=== PATIENT | male | born 2000 | race Caucasian/White ===

== ENCOUNTER 2022-05-25 12:35 | Inpatient (IN) ==
[2022-05-25 14:49] LABS: Basophils # (auto) 0.04 K/uL (0-0.2); Basophils % (auto) 0.4 %; Eosinophils # (auto) 0.02 K/uL (0-0.50); Eosinophils % (auto) 0.2 %; Hematocrit (blood only) 42.9 % (40.1-51.0); Hemoglobin 15.2 g/dl (14.0-18.0); Immature Granulocytes # (auto) 0.06 K/uL (0.00-0.02); Immature Granulocytes % (auto) 0.5 %; Lymphocytes # (auto) 1.25 K/uL (1.2-3.4); Lymphocytes % (auto) 11.4 %; Mean Corpuscular Hemoglobin 30.3 pg (25.0-34.0); Mean Corpuscular Hgb Conc 35.4 g/dL (32.0-36.0); Mean Corpuscular Volume 85.5 fL (80.0-100.0); Monocytes % (auto) 9.1 %; Neutrophils # (auto) 8.61 K/uL (1.4-6.5); Neutrophils % (auto) 78.4 %; Platelet Count 298 K/uL (130-400); RDW Coefficient of Variation 12.9 % (11.5-14.5); Red Blood Count 5.02 M/uL (4.63-6.08); White Blood Count 10.98 K/ul (4.8-10.8)
[2022-05-25] MEDS ORDERED: cefTRIAXone SODIUM 2,000 MG/70 ML BAG IV STA (14:55)
--- NOTE | 2022-05-25 15:03 | Emergency Department Note ---
Impression & Plan Cellulitis of left leg, Abscess of left leg ED Provider Note NAME: JEFF ORANTES II AGE: 21 SEX: M : 2000 ARRIVES VIA: Walk-In INFORMANT: Patient, ED PROVIDER(S): Shaji Sparks DO CHIEF COMPLAINT: Leg swelling HPI: The patient is a 21-year-old male who presented to the emergency department for an evaluation of leg swelling. The patient states he started with an infection in his left great toe. He noticed some erythema and swelling around the nail. He he referred to it is an infected ingrown toenail. The patient states that since that time he started noticing swelling and pain in his left calf. It appears to go up to his left knee. He denies having any nausea or vomiting. He denies having any chest pain or difficulty breathing. He was seen at the machine [facility] trimmer's office and then sent to the emergency department for further evaluation. The patient denies having any fever or chills. He denies having any trauma otherwise. ROS: See above HPI for pertinent positives & negatives. A total of 10 systems reviewed and were otherwise negative. PAST MEDICAL HISTORY: See Below PAST SURGICAL HISTORY: See Below FAMILY HISTORY: See Below SOCIAL HISTORY: See Below HOME MEDICATIONS: See Below ALLERGIES: See Below VITALS: See Below PHYSICAL EXAMINATION: GENERAL: Patient is awake alert in no acute distress patient is resting comfortably and showing no signs of anxiety EYES: The conjunctivae are clear. The pupils are round and reactive. EARS, NOSE, MOUTH AND THROAT: The nose is without any evidence of any deformity. Mucous membranes are moist. Tongue is midline. NECK: The neck is nontender and supple. RESPIRATORY: Normal respiratory effort is noted there is no evidence of wheezing rhonchi or rales CARDIOVASCULAR: Regular rate and rhythm noted there no murmurs rubs or gallops normal S1 normal S2. GASTROINTESTINAL: The abdomen is soft. Abdomen is nontender. MUSCULOSKELETAL/EXTREMITIES: There is no evidence of gross deformity full range of motion is noted in the hips and shoulders. SKIN: There is erythema and swelling in the left leg. It extends to the left calf. Pulses are symmetric in both feet. Skin is warm and dry. The left great toe does show some hypertrophy of the skin at the nail fold. There is no signs of paronychia or drainage. NEUROLOGIC: Patient is awake alert and oriented x3. MEDICAL DECISION MAKING: The patient is a 21-year-old male who does not have any past medical history who presented to the emergency department for an evaluation of left leg swelling. Patient started with an ingrown toenail on the left foot. He started noticing swelling and pain. He was seen by the machine ii trimmer but then sent to the emergency department for further evaluation. He was treated with IV antibiotics in emergency department. He was also treated with IV fluids. I discussed patient's laboratory and radiographic studies with him. [facility] prefer that I discussed the case with the supervisory it specialist given the findings. Triage Nursing notes reviewed. Prior medical records reviewed Vital Signs: reviewed and remarkable for elevated blood pressure. Differential diagnosis: Cellulitis, abscess, MRSA infection, DVT, necrotizing fasciitis, dermatitis, drug eruption, allergic reaction, as well as other pathologies. ER treatment provided: See below Diagnostics interpreted by me: ECG: none Cardiac Monitoring: An order was placed for continuous cardiac monitoring. The monitor shows a rate of 103 bpm with sinus tachycardia. Laboratory studies: As stated above and show below. Imaging studies: See below. Radiographic imaging was reviewed by myself Consultation(s): I discussed this case with Dr. Mary who [facility] I discussed this case with Dr. Stearns who is on-call for orthopedics unassigned. Past Med/Surg History Medical History Abnormal thyroid function test Acute pharyngitis, unspecified Attention deficit disorder without hyperactivity [id number] spots Family History Mother No problems noted. Father No problems noted. Social History Feels Safe at Home: Yes Allergies Allergies Allergy/AdvReac Type Severity Reaction Status Date / Time No Known Drug Allergies Allergy Verified 05/25/22 17:10 Home Meds Home Medications Medication Instructions Recorded Confirmed No Known Home Medications 05/25/22 05/25/22 Results & Data (ED) Vital Signs Vital Signs - 24 hr 05/25/22 12:45 05/25/22 17:14 Temperature 37.1 C Temperature Source Temporal Artery Scan Pulse Rate 98 H Pulse Rate [Finger] 103 H Pulse Rhythm [Finger] Regular Pulse Strength [Finger] Normal Respiratory Rate 16 20 Respiratory Effort / Characteristics Non-Labored Non-Labored Spontaneous Respiratory Depth Normal Normal Respiratory Pattern Regular Blood Pressure 139/93 Blood Pressure [Right Arm] 147/77 H Blood Pressure Mean 108 Blood Pressure Mean [Right Arm] 100 Blood Pressure Position Sitting Blood Pressure Position [Right Arm] Lying Pulse Oximetry 96 97 Oxygen Delivery Method Room Air Room Air Sepsis Recent Fever Within 48 Hours No Sepsis New/Unexplained Change in Mental Status No Sepsis Action Taken by Nursing No Action Required Home Medications Current Medication List: was personally reviewed by me Laboratory Data Attestation: I reviewed the patient's lab results. 05/25/22 14:40 05/25/22 14:40 Lab Results 05/25/22 05/25/22 05/25/22 Range/Units 14:40 14:40 14:40 WBC 10.98 H (4.8-10.8) K/ul RBC 5.02 (4.63-6.08) M/uL Hgb 15.2 (14.0-18.0) g/dl Hct 42.9 (40.1-51.0) % MCV 85.5 (80.0-100.0) fL MCH 30.3 (25.0-34.0) pg MCHC 35.4 (32.0-36.0) g/dL RDW Std Deviation 40.0 (36.4-46.3) fL RDW Coeff of Luz 12.9 (11.5-14.5) % Plt Count 298 (130-400) K/uL MPV 11.0 (9.4-12.4) fL Immature Gran % (Auto) 0.5 % Neut % (Auto) 78.4 % Lymph % (Auto) 11.4 % [place] % (Auto) 9.1 % Eos % (Auto) 0.2 % Baso % (Auto) 0.4 % Neut # (Auto) 8.61 H (1.4-6.5) K/uL Lymph # (Auto) 1.25 (1.2-3.4) K/uL [place] # (Auto) 1.00 H (0.24-0.82) K/uL Eos # (Auto) 0.02 (0-0.50) K/uL Baso # (Auto) 0.04 (0-0.2) K/uL Immature Gran # (Auto) 0.06 H (0.00-0.02) K/uL Sodium 135 L (136-145) mmol/L Potassium 3.6 (3.5-5.1) mmol/L Chloride 100 (98-107) mmol/L Carbon Dioxide 25 (21-32) mmol/L Anion Gap 10 (3-11) BUN 12 (6-23) mg/dl Creatinine 0.90 (0.6-1.4) mg/dl Est Cr Clr Drug Dosing Not Reportable Est GFR ( Amer) 141.0 ml/min Est GFR (Non-Af Amer) 121.7 ml/min BUN/Creatinine Ratio 13.3 (10-20) Glucose 93 (70-99(Fasting)) mg/dl Calcium 9.7 (8.5-10.1) mg/dl Total Bilirubin 0.9 (0.2-1.0) mg/dl AST 41 H (13-39) U/L ALT 53 H (7-52) U/L Alkaline Phosphatase 59 (34-104) U/L C-Reactive Protein 11.77 H (0-0.5) mg/dl Total Protein 8.5 H (6.0-8.3) gm/dl Albumin 4.1 (3.4-5.0) gm/dl Globulin 4.4 H (2.5-4.0) gm/dl Albumin/Globulin Ratio 0.9 (0.9-2) Procalcitonin (0-0.5) ng/ml SARS-CoV-2, RNA, NAAT (NEGATIVE) 05/25/22 05/25/22 Range/Units 14:40 17:08 WBC (4.8-10.8) K/ul RBC (4.63-6.08) M/uL Hgb (14.0-18.0) g/dl Hct (40.1-51.0) % MCV (80.0-100.0) fL MCH (25.0-34.0) pg MCHC (32.0-36.0) g/dL RDW Std Deviation (36.4-46.3) fL RDW Coeff of Luz (11.5-14.5) % Plt Count (130-400) K/uL MPV (9.4-12.4) fL Immature Gran % (Auto) % Neut % (Auto) % Lymph % (Auto) % [place] % (Auto) % Eos % (Auto) % Baso % (Auto) % Neut # (Auto) (1.4-6.5) K/uL Lymph # (Auto) (1.2-3.4) K/uL [place] # (Auto) (0.24-0.82) K/uL Eos # (Auto) (0-0.50) K/uL Baso # (Auto) (0-0.2) K/uL Immature Gran # (Auto) (0.00-0.02) K/uL Sodium (136-145) mmol/L Potassium (3.5-5.1) mmol/L Chloride (98-107) mmol/L Carbon Dioxide (21-32) mmol/L Anion Gap (3-11) BUN (6-23) mg/dl Creatinine (0.6-1.4) mg/dl Est Cr Clr Drug Dosing Est GFR ( Amer) ml/min Est GFR (Non-Af Amer) ml/min BUN/Creatinine Ratio (10-20) Glucose (70-99(Fasting)) mg/dl Calcium (8.5-10.1) mg/dl Total Bilirubin (0.2-1.0) mg/dl AST (13-39) U/L ALT (7-52) U/L Alkaline Phosphatase (34-104) U/L C-Reactive Protein (0-0.5) mg/dl Total Protein (6.0-8.3) gm/dl Albumin (3.4-5.0) gm/dl Globulin (2.5-4.0) gm/dl Albumin/Globulin Ratio (0.9-2) Procalcitonin 2.40 H (0-0.5) ng/ml SARS-CoV-2, RNA, NAAT NEGATIVE (NEGATIVE) Administered Medications Discontinued Medications Ceftriaxone Sodium (Rocephin) 2,000 mg in 70 mls @ 140 mls/hr IV NOW STA Stop: 05/25/22 15:24 Last Admin: 05/25/22 15:59 Dose: 140 mls/hr Documented By: [id number] Sodium Chloride (Nss 1000ml) 1,000 mls @ 999 mls/hr IV .Q1H1M ONE Stop: 05/25/22 17:08 Last Admin: 05/25/22 17:56 Dose: 999 mls/hr Documented By: [id number] Vancomycin HCl 2,500 mg/ (Sodium Chloride) 550 mls @ 200 mls/hr IV NOW ONE Stop: 05/25/22 18:59 Last Admin: 05/25/22 18:32 Dose: Not Given Documented By: [id number] Ioversol (Optiray 320 500ml) 102 ml IV ONCE ONE Stop: 05/25/22 17:39 Last Admin: 05/25/22 17:39 Dose: 102 ml Documented By: [email or web address] Imaging Data Radiologist's Impression: Venous Doppler Study 05/25/22 12:48 LEFT LOWER EXTREMITY VENOUS DOPPLER CLINICAL HISTORY: swelling, redness COMPARISON STUDY: No previous studies for comparison. TECHNIQUE: Sonography of the deep venous system of the left lower extremity was performed. Compression and augmentation were evaluated. FINDINGS: The left common femoral, superficial femoral and popliteal veins were compressible. Augmentation was normal. Flow was shown within the deep calf vessels. A few prominent left inguinal lymph nodes are noted. These are probably reactive. Note is made of a complex elongated fluid collection of the deep soft tissues of the medial left calf measures 5.2 x 1.5 x 3.8 cm. This contains no color flow. IMPRESSION: 1. No evidence of deep venous thrombus within the left lower extremity. 2. Complex elongated fluid collection of the deep soft tissues of the medial left calf that measures 5.2 x 1.5 x 3.8 cm. The sonographic appearance is nonspecific. Differential considerations include a developing abscess or hemat arlene. 3. Prominent left inguinal lymph nodes which are likely benign. ACT 112: Negative or not required by law. Electronically signed by: Martin Zayas M.D. 05/25/2022 4:[address] 05/25/22 16:08 CT OF THE LEFT TIBIA AND FIBULA WITH IV CONTRAST CLINICAL HISTORY: Swelling. Ingrown toenail. COMPARISON STUDY: Left lower extremity venous Doppler ultrasound performed earlier today. TECHNIQUE: Axial images of the left tibia and fibula and lower leg were obtained following intravenous injection of 102 cc of Optiray 320 IV. Sagittal and coronal reconstructions were viewed. Automated exposure control was utilized for the study. A dose lowering technique was utilized adhering to the principles of ALARA. FINDINGS: No fracture within the left tibia or fibula is noted. There is no evidence for acute osteomyelitis. Note is made of extensive stranding of the left lower leg, ankle and visualized portions of the dorsal left foot. The inflammation extends the level of the proximal shaft of the tibia. There is no soft tissue gas. Note is made of a rim-enhancing 4 x 2.6 x 1 cm fluid collection along the anterior medial aspect of the left tibia at the level of the midshaft, overlying the fascia. No additional fluid collections are present. No fascial fluid is identified. No venous thrombus is identified within the left lower leg. No muscular abnormalities present. IMPRESSION: Findings consistent with an ascending infection with cellulitis involving the left foot, ankle and lower leg extending to the level of the proximal shaft of the tibia. Associated small abscess within the deep subcutaneous tissues at the level of the tibial midshaft, measuring 4 x 2.6 x 1 cm. No soft tissue gas. No evidence for acute osteomyelitis. No fascial fluid. ACT 112: Negative or not required by law. Electronically signed by: Martin Zayas M.D. 05/25/2022 5:49 PM Discharge Plan Visit Data Chief Complaint: Swelling/Edema to Extremity Stated Complaint: L LEG INFLAMED, RED, AND PAINFUL ED Provider: Shaji Sparks Discharge Problem: Cellulitis of left leg, Abscess of left leg Patient Disposition: Being Evaluated by Surgeon Forms Stand Alone Forms: My [facility] [employer] Prescriptions Prescriptions: No Action No Known Home Medications Referrals Referrals: Charito Bui MD [Primary Care Provider] -
[2022-05-25 15:13] LABS: Alanine Aminotransferase 53 U/L (7-52); Albumin Globulin Ratio 0.9 (0.9-2); Albumin Level 4.1 gm/dl (3.4-5.0); Alkaline Phosphatase 59 U/L (34-104); Anion Gap 10 (3-11); Aspartate Aminotransferase 41 U/L (13-39); BUN Creatinine Ratio 13.3 (10-20); Bilirubin,Total 0.9 mg/dl (0.2-1.0); Blood Urea Nitrogen 12 mg/dl (6-23); Calcium 9.7 mg/dl (8.5-10.1); Carbon Dioxide 25 mmol/L (21-32); Chloride 100 mmol/L (98-107); Est GFR (Non-African American) 121.7 ml/min; Globulin 4.4 gm/dl (2.5-4.0); Glucose 93 mg/dl (70-99(Fasting)); Potassium 3.6 mmol/L (3.5-5.1); Sodium 135 mmol/L (136-145); Total Protein 8.5 gm/dl (6.0-8.3)
--- NOTE | 2022-05-25 16:07 | Ultrasound Report ---
LEFT LOWER EXTREMITY VENOUS DOPPLER CLINICAL HISTORY: swelling, redness COMPARISON STUDY: No previous studies for comparison. TECHNIQUE: Sonography of the deep venous system of the left lower extremity was performed. Compressi on and augmentation were evaluated. FINDINGS: The left common femoral, superficial femoral and popliteal veins were compressible. Augmen tation was normal. Flow was shown within the deep calf vessels. A few prominent left inguinal lymph n odes are noted. These are probably reactive. Note is made of a complex elongated fluid collection of the deep soft tissues of the medial left calf measures 5.2 x 1.5 x 3.8 cm. This contains no color david w. IMPRESSION: 1. No evidence of deep venous thrombus within the left lower extremity. 2. Complex elongated fluid collection of the deep soft tissues of the medial left calf that measures 5.2 x 1.5 x 3.8 cm. The sonographic appearance is nonspecific. Differential considerations include a developing abscess or hematoma. 3. Prominent left inguinal lymph nodes which are likely benign. ACT 112: Negative or not required by law. Electronically signed by: Martin Zayas M.D. 05/25/2022 4:06 PM
[2022-05-25] MEDS ORDERED: SODIUM CHLORIDE 0.9% 1000ML 1,000 ML IV ONE ×2 (16:08→17:09)
[2022-05-25] MEDS ORDERED: VANCOMYCIN CONSULT ACTIVE PRN (16:15)
[2022-05-25] MEDS ORDERED: VANCOMYCIN HCL 2,500 MG in SODIUM CHLORIDE 0.9% 500 ML IV ONE (16:15)
--- NOTE | 2022-05-25 17:36 | History & Physical Report ---
Date of Service May 25, 2022 Assessment & Plan (1) Cellulitis of left leg: Plan: -Admit to med/surge -Patient is currently afebrile, hemodynamically stable, and stable on RA -Patient noted to have cellulitis of the LLE, imaging today is showing an approximately 4 x 2.6 x 1 cm abscess in the left tibial midshaft -Started on ceftriaxone in the ED and originally ordered Vancomycin -After discussions with the ED will switch patient to Daptomycin due to his BMI -S/P 2L NSS in the ED, patient noted to be tachycardic, will obtain admission ECG now to evaluate -Per ortho, make him NPO at midnight for possible OR tomorrow -Tylenol and morphine for pain -AM CBC and CMP (2) Paronychia due to ingrown nail: Plan: -Likely the source of his infection -Patient may need to be seen by podiatry on discharge (3) Elevated LFTs: Plan: -ATS noted to be 41 today and ALT at 53, likely due to fatty liver disease -Monitor AM CBC and CMP Plan The patient was discussed with Dr. Mary at the time of the admission History of Present Illness Chief Complaint: Left lower extremity swelling Primary Care Provider: Charito Bui MD Edwin is a 21 year old male with a PMH significant for morbid obesity who presented to the [facility] ED on 05/25/22 at the recommendation of his PCP due to concerned for possible cellulitis of the LLE. In the ED the patient was found to be afebrile, hemodynamically stable, and stable on RA, he was noted to be tachycardic in the low 100's. Labs were significant for a WBC of 10.98, absolute neutrophil count of 8.61, stable hgb and platelets, stable cr of 0.9 with stable electrolytes, AST of 41, ALT of 53, CRP of 11, procal of 2.4, US of the LLE was read as "1. No evidence of deep venous thrombus within the left lower extremity. 2. Complex elongated fluid collection of the deep soft tissues of the medial left calf that measures 5.2 x 1.5 x 3.8 cm. The sonographic appearance is nonspecific. Differential considerations include a developing abscess or hematoma. 3. Prominent left inguinal lymph nodes which are likely benign.". The patient was given one dose of ceftriaxone and ordered Vancomycin, he was given 2L NSS bolus prior to admission. The ED staff spoke with orthopedics who recommended medicine admission for initial IV antibiotic therapy, they will follow and determine if he will need to go to the OR. At the time of the exam the patient was resting comfortably in bed in no acute distress with his father sitting bedside. The patient states that he has had an ingrown toenail on the great toe of his LLE for approximately 2 months. He states that he had not yet going to the doctor to have it evaluated due to being in the middle of basketball season. This past weekend the patient states that he noticed redness, swelling and pain staring around his left ankle and moving proximally towards his left knee. He started to experience fever, chills, nausea, and vomiting over the weekend but this has subsided. He has been unable to bear much weight on the LLE since then. He denies taking medications for his pain. Please refer to Dr. Mary's attestation for any changes to the treatment plan Allergies Allergy/AdvReac Type Severity Reaction Status Date / Time No Known Drug Allergies Allergy Verified 05/25/22 17:10 Home Medications Medication Instructions Recorded Confirmed Type No Known Home Medications 05/25/22 05/25/22 History Past Med/Surg History Medical History Abnormal thyroid function test Acute pharyngitis, unspecified Attention deficit disorder without hyperactivity [id number]-pi-[id number] spots Family History Mother No problems noted. Father No problems noted. Social History Smoking Status: Never smoker Second Hand Exposure: No; Do You Dip or Chew Tobacco: No; Hx Alcohol Use: Yes Alcohol type: beer Hx Substance Use: No Preferred Language: Bahamian Communication Ability: Effective Gas Pipe Layer Required: No Beliefs That Will Affect Care: None Current Living Situation: Family Other Information That Helps Us Care for You: No Feels Safe at Home: Yes Safety Concerns: Feels Safe At This Time Assistive Devices: None Review of Systems Review of Systems: Denies current fever, chills, headache, changes in vision, hearing, taste, and smell, chest pain, SOB, cough, abdominal pain, nausea, vomiting, diarrhea, hematemesis, melena, dysuria, hematuria, and recent falls. All systems have been reviewed and are otherwise negative. Physical Exam Physical Exam: Physical Exam: General: In no acute distress, stated age, morbidly obese, non-toxic appeari ng HEENT: Normocephalic, atraumatic, no scleral icterus, pupils around round, symmetrical, and reactive to light, moist mucus membranes, trachea midline, no thyromegaly Chest/Pulm: No respiratory distress, symmetrical chest expansion, clear breath sounds throughout Cardiac: tachycardic rate, regular rhythm, no murmurs noted Abdomen: Negative for ascites and bruising, normoactive bowel sounds, soft, non-tender to palpation throughout Musculoskeletal: Ingrown toenail noted on the left great toe which appears swollen but is not draining, patient noted to have swelling, erythema and tenderness to palpation of the LLE from the proximal ankle to the distal knee Extremities: Radial, dorsalis pedis, and posterior tibial pulses are intact and symmetrical, no edema noted in the BL LE's Skin: erythema, swelling, and tenderness to the LLE Neuro: Alert and oriented to person, place, month, year, and president, no focal defects, CN II-XII tested and intact, finger to nose test negative, no tremors noted Psych: No acute distress, calm and cooperative during the exam Results & Data Results & Data ([facility]) Vital Signs (Past 12 Hours) Vital Signs Temp Pulse Pulse Resp BP BP Pulse Ox 05/25/22 17:14 103 H 20 147/77 H 97 05/25/22 12:45 37.1 C 98 H 16 139/93 96 O2 Del Method 05/25/22 17:14 Room Air 05/25/22 12:45 Room Air Laboratory Results Abnormal lab results 05/25/22 05/25/22 05/25/22 Range/Units 14:40 14:40 14:40 WBC 10.98 H (4.8-10.8) K/ul Neut # (Auto) 8.61 H (1.4-6.5) K/uL [place] # (Auto) 1.00 H (0.24-0.82) K/uL Immature Gran # (Auto) 0.06 H (0.00-0.02) K/uL Sodium 135 L (136-145) mmol/L AST 41 H (13-39) U/L ALT 53 H (7-52) U/L C-Reactive Protein 11.77 H (0-0.5) mg/dl Total Protein 8.5 H (6.0-8.3) gm/dl Globulin 4.4 H (2.5-4.0) gm/dl Procalcitonin (0-0.5) ng/ml 05/25/22 Range/Units 14:40 WBC (4.8-10.8) K/ul Neut # (Auto) (1.4-6.5) K/uL [place] # (Auto) (0.24-0.82) K/uL Immature Gran # (Auto) (0.00-0.02) K/uL Sodium (136-145) mmol/L AST (13-39) U/L ALT (7-52) U/L C-Reactive Protein (0-0.5) mg/dl Total Protein (6.0-8.3) gm/dl Globulin (2.5-4.0) gm/dl Procalcitonin 2.40 H (0-0.5) ng/ml Diagnostic Findings Venous Doppler Study 05/25/22 12:48 LEFT LOWER EXTREMITY VENOUS DOPPLER CLINICAL HISTORY: swelling, redness COMPARISON STUDY: No previous studies for comparison. TECHNIQUE: Sonography of the deep venous system of the left lower extremity was performed. Compression and augmentation were evaluated. FINDINGS: The left common femoral, superficial femoral and popliteal veins were compressible. Augmentation was normal. Flow was shown within the deep calf vessels. A few prominent left inguinal lymph nodes are noted. These are probably reactive. Note is made of a complex elongated fluid collection of the deep soft tissues of the medial left calf measures 5.2 x 1.5 x 3.8 cm. This contains no color flow. IMPRESSION: 1. No evidence of deep venous thrombus within the left lower extremity. 2. Complex elongated fluid collection of the deep soft tissues of the medial left calf that measures 5.2 x 1.5 x 3.8 cm. The sonographic appearance is nonsp ecific. Differential considerations include a developing abscess or hematoma. 3. Prominent left inguinal lymph nodes which are likely benign. ACT 112: Negative or not required by law. Electronically signed by: Martin Zayas M.D. 05/25/2022 4:[address] 05/25/22 16:08 CT OF THE LEFT TIBIA AND FIBULA WITH IV CONTRAST CLINICAL HISTORY: Swelling. Ingrown toenail. COMPARISON STUDY: Left lower extremity venous Doppler ultrasound performed earlier today. TECHNIQUE: Axial images of the left tibia and fibula and lower leg were obtained following intravenous injection of 102 cc of Optiray 320 IV. Sagittal and coronal reconstructions were viewed. Automated exposure control was utilized for the study. A dose lowering technique was utilized adhering to the principles of ALARA. FINDINGS: No fracture within the left tibia or fibula is noted. There is no evidence for acute osteomyelitis. Note is made of extensive stranding of the l eft lower leg, ankle and visualized portions of the dorsal left foot. The inflammation extends the level of the proximal shaft of the tibia. There is no soft tissue gas. Note is made of a rim-enhancing 4 x 2.6 x 1 cm fluid collection along the anterior medial aspect of the left tibia at the level of the midshaft, overlying the fascia. No additional fluid collections are present. No fascial fluid is identified. No venous thrombus is identified within the left lower leg. No muscular abnormalities present. IMPRESSION: Findings consistent with an ascending infection with cellulitis involving the left foot, ankle and lower leg extending to the level of the proximal shaft of the tibia. Associated small abscess within the deep subcutaneous tissues at the level of the tibial midshaft, measuring 4 x 2.6 x 1 cm. No soft tissue gas. No evidence for acute osteomyelitis. No fascial fluid. ACT 112: Negative or not required by law. Electronically signed by: Martin Zayas M.D. 05/25/2022 5:49 PM ECG Additional Comments: No ecg available at the time of the admisssion, will obtain one now Code Status & VTE Plan Code Status Full code VTE Prophylaxis Plan VTE Prophylaxis will be ordered: Yes Supervising Physician Co-Signing Physician Notes I personally saw and examined the patient. I verified all flores points and agree with Dell Doe PA-C with the following exceptions and/or additions: 21-year-old male admission for left leg cellulitis with fluid collection on ultrasound. No fever or chills. O/E HS1+2, Chest CTAB, Abdo SNT, LLE erythema and swelling starting at left lateral ankle to knee, not on dorsal or plantar foot surface A/P LLE cellulitis with abscess - given suspected abscess will cover for MRSA with daptomycin. Blood cultures. Consult orthopedics. Not clearly coming from paronychia however no other open lesions on leg to suggest entry point for infection PG Care Time/CCT Total # of Minutes Spent Total Time Spent with Patient: Total time spent is greater than 50% in coordination of care (as documented) at patient's floor/unit and/or counseling patient: Coding [place] [address] INT INP/OBS CARE 2/55MIN Patient Type Established Medical Decision Making Moderate Complexity Diagnoses Cellulitis of left leg L03.116 Paronychia due to ingrown nail Elevated LFTs R79.89
[2022-05-25] MEDS ORDERED: OPTIRAY 320 500ml IV ONE (17:38)
--- NOTE | 2022-05-25 17:50 | CT Scan Report ---
CT OF THE LEFT TIBIA AND FIBULA WITH IV CONTRAST CLINICAL HISTORY: Swelling. Ingrown toenail. COMPARISON STUDY: Left lower extremity venous Doppler ultrasound performed earlier today. TECHNIQUE: Axial images of the left tibia and fibula and lower leg were obtained following intravenou s injection of 102 cc of Optiray 320 IV. Sagittal and coronal reconstructions were viewed. Automated exposure control was utilized for the study. A dose lowering technique was utilized adhering to the principles of ALARA. FINDINGS: No fracture within the left tibia or fibula is noted. There is no evidence for acute osteom yelitis. Note is made of extensive stranding of the left lower leg, ankle and visualized portions of the dorsal left foot. The inflammation extends the level of the proximal shaft of the tibia. There is no soft tissue gas. Note is made of a rim-enhancing 4 x 2.6 x 1 cm fluid collection along the anteri or medial aspect of the left tibia at the level of the midshaft, overlying the fascia. No additional fluid collections are present. No fascial fluid is identified. No venous thrombus is identified withi n the left lower leg. No muscular abnormalities present. IMPRESSION: Findings consistent with an ascending infection with cellulitis involving the left foot, ankle and lo wer leg extending to the level of the proximal shaft of the tibia. Associated small abscess within th e deep subcutaneous tissues at the level of the tibial midshaft, measuring 4 x 2.6 x 1 cm. No soft ti ssue gas. No evidence for acute osteomyelitis. No fascial fluid. ACT 112: Negative or not required by law. Electronically signed by: Martin Zayas M.D. 05/25/2022 5:49 PM
[2022-05-25] MEDS ORDERED: MoRPHine SULFATE 4 MG/ML 1 ML CARP\\VIAL IV PRN (21:28)
[2022-05-25] MEDS ORDERED: DAPTOmycin 625 MG in SYRINGE 0 ML IV SCH (21:28)
[2022-05-25] MEDS: DAPTOmycin 400 MG in SYRINGE 0 ML IV SCH (22:06)
[2022-05-25] MEDS: ENOXAPARIN INJ 40 MG/0.4 ML SYR SQ SCH (22:06)
[2022-05-25] MEDS: ACETAMINOPHEN 325 MG TAB PO PRN (22:14)
--- NOTE | 2022-05-26 07:29 | Anesthesiology Consultation ---
Date of Service May 26, 2022 Assessment & Plan Chart Review Chart Review: Acceptable Risk for Surgery and Patient NOT seen in Pre Admission Testing History Surgery Operation Date: 05/26/22 12:40 Proposed Procedures p Incision and Drainage Left Leg - Dell Stearns MD Height/Weight Height: 5 ft 9 in Weight: 159.7 kg Allergies Allergy/AdvReac Type Severity Reaction Status Date / Time No Known Drug Allergies Allergy Verified 05/25/22 17:10 Medications Home Medications Medication Instructions Recorded Confirmed Last Taken No Known Home Medications 05/25/22 05/25/22 Unknown Active Medications Generic Name Dose Route Start Last Admin Trade Name Freq PRN Reason Stop Dose Admin Acetaminophen 650 mg 05/25/22 21:28 05/25/22 22:14 Acetaminophen 325 Mg Tab PO 06/24/22 21:27 650 mg Q4H PRN Administration Pain (1,2,3) Or Fever Enoxaparin Sodium 40 mg 05/25/22 21:45 05/25/22 22:06 Enoxaparin Inj 40 Mg/0.4 Ml Syr SQ 06/24/22 21:44 40 mg BID ALEYDA Administration Daptomycin 400 mg/ Syringe 8 mls @ 4 mls/min 05/25/22 21:00 05/25/22 22:06 IV 06/01/22 20:59 4 mls/min Q24H ALEYDA Administration Protocol Past Medical History Medical History Abnormal thyroid function test Acute pharyngitis, unspecified Attention deficit disorder without hyperactivity Nqps-yp-jcho spots Past Family History Family History Mother No problems noted. Father No problems noted. Social History Smoking Status: Never smoker Do You Dip or Chew Tobacco: No Hx Alcohol Use: Yes Alcohol type: beer alcohol intake frequency: holidays/special occasions only Hx Substance Use: No substance use type: does not use Physical Exam Vital Signs Last Vital Signs Temp 37.7 C H 05/25/22 19:59 Pulse 107 H 05/25/22 19:59 Resp 20 05/25/22 19:59 BP 116/76 05/25/22 19:59 Pulse Ox 98 05/25/22 19:59 O2 Del Method 05/25/22 19:59 Testing Laboratory Results 05/25/22 14:40 05/25/22 14:40
[2022-05-26 08:17] LABS: Basophils # (auto) 0.06 K/uL (0-0.2); Basophils % (auto) 0.5 %; Eosinophils # (auto) 0.01 K/uL (0-0.50); Eosinophils % (auto) 0.1 %; Hematocrit (blood only) 39.6 % (40.1-51.0); Hemoglobin 13.9 g/dl (14.0-18.0); Immature Granulocytes # (auto) 0.09 K/uL (0.00-0.02); Immature Granulocytes % (auto) 0.7 %; Lymphocytes # (auto) 1.68 K/uL (1.2-3.4); Lymphocytes % (auto) 13.2 %; Mean Corpuscular Hemoglobin 30.3 pg (25.0-34.0); Mean Corpuscular Hgb Conc 35.1 g/dL (32.0-36.0); Mean Corpuscular Volume 86.3 fL (80.0-100.0); Monocytes # (auto) 1.38 K/uL (0.24-0.82); Monocytes % (auto) 10.8 %; Neutrophils # (auto) 9.55 K/uL (1.4-6.5); Neutrophils % (auto) 74.7 %; Platelet Count 282 K/uL (130-400); RDW Coefficient of Variation 13.1 % (11.5-14.5); RDW Standard Deviation 40.9 fL (36.4-46.3); Red Blood Count 4.59 M/uL (4.63-6.08); White Blood Count 12.77 K/ul (4.8-10.8)
--- NOTE | 2022-05-26 08:17 | Hospitalist Progress Note ---
Date of Service May 26, 2022 Assessment & Plan (1) Cellulitis of left leg: Plan: -Patient is currently afebrile, hemodynamically stable, and stable on RA (97%) -Patient noted to have cellulitis of the LLE, CT imaging revealed an approximately 4 x 2.6 x 1 cm abscess in the left tibial midshaft -Currently on Ceftriaxone 2gm IV Daily and Daptomycin 400mg IV daily -Per ortho, possible OR today (been NPO at midnight) -Tylenol and morphine for pain -AM labs (2) Paronychia due to ingrown nail: Plan: -Likely the source of his infection -Patient may need to be seen by podiatry on discharge (3) Elevated LFTs: Plan: -AST noted to be 41 yesterday and ALT at 53, likely due to fatty liver disease -Monitor labs Admission and Anticipated Discharge Date Admission Date: May 25, 2022 Subjective Patent was awake sitting up in bed. He has been NPO for surgery (I&D of abscess left leg) He tells me he had an ingrown toe nail left 1st toe after Ruben and he tried to cut it out with nail clippers and then his leg became sore and swollen. Review of Systems Review of Systems: Patient denies any fevers. He had some chills. He admits to pain in left lower leg. He denies any chest pain, SOB, cough, abdominal pain or nausea or vomiting. All other ROS negative unless stated otherwise in the HPI Physical Exam Constitutional: WD/WN, vitals as above (Overweight) Neck: trachea midline, no thyromegaly Respiratory: normal respiratory effort, lungs clear to auscultation Cardiovascular: RRR, no murmur, no edema Gastrointestinal (Abdomen): normal bowel sounds, soft, nontender, no hepatosplenomegaly obese Skin: Erythema left lower leg, swollen nail fungus bilaterally with in grown toe nail left 1st toe Neurologic: PERRL, EOMI, accommodation nl, no face palsy, no dysarthria Psychiatric: A+Ox3, euthymic affect Results & Data Results & Data ([facility]) Vital Signs (Past 12 Hours) Vital Signs Temp Pulse Resp BP Pulse Ox O2 Del Method 05/26/22 07:42 37.5 C 91 H 20 150/77 H 97 Room Air Laboratory Results Abnormal lab results 05/26/22 05/26/22 Range/Units 07:39 07:39 WBC 12.77 H (4.8-10.8) K/ul RBC 4.59 L (4.63-6.08) M/uL Hgb 13.9 L (14.0-18.0) g/dl Hct 39.6 L (40.1-51.0) % Neut # (Auto) 9.55 H (1.4-6.5) K/uL [place] # (Auto) 1.38 H (0.24-0.82) K/uL Immature Gran # (Auto) 0.09 H (0.00-0.02) K/uL Potassium 3.2 L (3.5-5.1) mmol/L Total Bilirubin 1.1 H (0.2-1.0) mg/dl Diagnostic Findings Lower Extremity CT 05/25/22 16:08 CT OF THE LEFT TIBIA AND FIBULA WITH IV CONTRAST CLINICAL HISTORY: Swelling. Ingrown toenail. COMPARISON STUDY: Left lower extremity venous Doppler ultrasound performed earlier today. TECHNIQUE: Axial images of the left tibia and fibula and lower leg were obtained following intravenous injection of 102 cc of Optiray 320 IV. Sagittal and coronal reconstructions were viewed. Automated exposure control was utilized for the study. A dose lowering technique was utilized adhering to the principles of ALARA. FINDINGS: No fracture within the left tibia or fibula is noted. There is no evidence for acute osteomyelitis. Note is made of extensive stranding of the left lower leg, ankle and visualized portions of the dorsal left foot. The inflammation extends the level of the proximal shaft of the tibia. There is no soft tissue gas. Note is made of a rim-enhancing 4 x 2.6 x 1 cm fluid collection along the anterior medial aspect of the left tibia at the level of the midshaft, overlying the fascia. No additional fluid collections are present. No fascial fluid is identified. No venous thrombus is identified within the left lower leg. No muscular abnormalities present. IMPRESSION: Findings consistent with an ascending infection with cellulitis involving the left foot, ankle and lower leg extending to the level of the proximal shaft of the tibia. Associated small abscess within the deep subcutaneous tissues at the level of the tibial midshaft, measuring 4 x 2.6 x 1 cm. No soft tissue gas. No evidence for acute osteomyelitis. No fascial fluid. ACT 112: Negative or not required by law. Electronically signed by: Martin Zayas M.D. 05/25/2022 5:49 PM PG Care Time/CCT Total # of Minutes Spent Total Time Spent with Patient: Total time spent is greater than 50% in coordination of care (as documented) at patient's floor/unit and/or counseling patient: Coding Level of Care Code 56951 SUB INP/OBS CARE 25MIN Diagnoses Cellulitis of left leg L03.116 Paronychia due to ingrown nail Elevated LFTs R79.89
[2022-05-26 08:25] LABS: INR 1.1 (0.9-1.1); Prothrombin Time 11.3 Seconds (9.0-12.0)
--- NOTE | 2022-05-26 09:02 | Electrocardiogram Report ---
Test Reason : Blood Pressure : / mmHG Vent. Rate : 095 BPM Atrial Rate : 095 BPM P-R Int : 144 ms QRS Dur : 086 ms QT Int : 452 ms P-R-T Axes : 025 011 007 degrees QTc Int : 568 ms Normal sinus rhythm Diffuse Minor Nonspecific T wave abnormality Prolonged QT Abnormal ECG No previous ECGs available Confirmed by Jack Tanner ([id number]) on 05/26/2022 9:02:04 AM Referred By: REFERRED SELF Confirmed By:Jack Tanner
[2022-05-26] MEDS: ENOXAPARIN INJ 40 MG/0.4 ML SYR SQ SCH ×2 (09:09→20:15)
[2022-05-26 09:30] LABS: Albumin Globulin Ratio 0.9 (0.9-2); Albumin Level 3.6 gm/dl (3.4-5.0); BUN Creatinine Ratio 10.8 (10-20); Bilirubin,Total 1.1 mg/dl (0.2-1.0); Creatinine Clr Calc Pharmacy 188.9 ml/min; Est GFR (African American) 135.5 ml/min; Est GFR (Non-African American) 116.9 ml/min; Globulin 3.8 gm/dl (2.5-4.0); Potassium 3.2 mmol/L (3.5-5.1); Total Protein 7.4 gm/dl (6.0-8.3)
--- NOTE | 2022-05-26 10:38 | Orthopedic Consultation ---
Date of Service May 26, 2022 Assessment & Plan (1) Abscess of left leg: (2) Cellulitis of left leg: (3) Paronychia due to ingrown nail: Plan 21-year-old male with obesity and the development of cellulitis on his left lower leg. It may have begun with an infected ingrown toenail. He presents today with focal pain in the middle aspect of his leg, and this area corresponds to an abscess formation that small but very clear. I discussed with the his diagnoses, prognosis and treatment options. The cellulitis should resolve with antibiotic treatment, then abscess can persist for some time. My recommendation would be to perform an incision and debridement of the abscess formation expedite the resolution of the infectious process. We will take deep cultures to help tailor antibiotics. Alternatives would be bedrest and prolonged antibiotic therapy. We discussed the risks of surgery includes but is not limited to infection persistent infection, need for repeat or revision procedures, wound healing complications, pain and pain syndromes, nerve or vessel injury which is unlikely, blood clots, and complications related anesthesia. He asked appropriate questions, demonstrated good understanding, and desires to proceed with surgery as I described. We will proceed with a right leg incision and debridement of the abscess. Remain NPO. On-call to the OR for this afternoon. History of Present Illness Reason for Consultation: Left leg cellulitis complicated by abscess Requesting Physician: . Attending Physician: Joesph Herve Sulypatoalem 21-year-old male with no established medical issues other than obesity presented to the ER with increasing pain, erythema, and edema over his left leg. He had a recent ingrown toenail appeared to get infected. Over the weekend, he felt that the toenail was stable but he had nausea, vomiting and overall did not feel well. At that time, he developed some leg pain followed by redness and swelling. He was instructed by his primary care physician to present to the ER for concern of significant cellulitis. Reports this morning, that the pain is localized in the middle aspect of his anterior hidalgo. He said he has mild discomfort over the lateral side of his ankle as well. He says his great toe is not painful. He was having trouble putting weight on this leg due to the pain in the middle aspect of his hidlago. He denies any fevers nor chills. Is been tolerating the IV antibiotics. Allergies Allergy/AdvReac Type Severity Reaction Status Date / Time No Known Drug Allergies Allergy Verified 05/25/22 17:10 Home Medications Medication Instructions Recorded Confirmed Type No Known Home Medications 05/25/22 05/25/22 History Past Med/Surg History Medical History Abnormal thyroid function test Acute pharyngitis, unspecified Attention deficit disorder without hyperactivity [id number] spots Family History Mother No problems noted. Father No problems noted. Social History Smoking Status: Never smoker Second Hand Exposure: No; Do You Dip or Chew Tobacco: No; Hx Alcohol Use: Yes Alcohol type: beer Hx Substance Use: No Preferred Language: Mongolian Communication Ability: Effective Door Liner Helper Required: No Beliefs That Will Affect Care: None Current Living Situation: Family Other Information That Helps Us Care for You: No Feels Safe at Home: Yes Safety Concerns: Feels Safe At This Time Assistive Devices: None Review of Systems All systems reviewed & are unremarkable except as noted in HPI & below. Physical Exam LLE: There is clear erythema extending down the majority of the anterior aspect of his leg. There is edema associated with it that extends down to about the level of the malleoli. His great toe and forefoot are without edema or erythema. He has intact toe motion without pain. There is a focal area of swelling and fluctuance in the middle aspect of the leg just medial to the anterior tibial cortex. There is exquisite tenderness in this area, and it corresponds to the area of abscess on CT. The erythema has receded somewhat from the lines marked on the skin with a skin marker on admission. Full range of motion of his ankle with minimal discomfort. The knee has range of motion that is painless. No knee effusion. No ankle effusion. No drainage from the great toe toenail. Neurovascular intact Constitutional WD/WN, vitals as above Respiratory normal respiratory effort; no respiratory distress Cardiovascular Extremities: normal capillary refill; no edema Chest (Breasts) Chest: normal inspection of chest Skin no rashes, warm and dry Psychiatric A+Ox3, euthymic affect Results & Data Results & Data Laboratory Results Laboratory Tests 05/25/22 05/25/22 05/25/22 14:40 14:40 14:40 WBC 10.98 H C-Reactive Protein 11.77 H Procalcitonin 2.[address] with contrast of the left leg was reviewed and evaluated by me. I agree that there is extensive cellulitic change. There is a small area of abscess that corresponds to his most focal tenderness on his leg. PG Care Time/CCT Total # of Minutes Spent Total Time Spent with Patient: Total time spent is greater than 50% in coordination of care (as documented) at patient's floor/unit and/or counseling patient: Coding Level of Care Code INP/OBS CONSULT LVL 4, 60 MIN (57 - DECISION FOR SURGERY) Diagnoses Abscess of left leg L02.416 Cellulitis of left leg L03.116 Paronychia due to ingrown nail
[2022-05-26] MEDS: POTASSIUM CHLORIDE / WTR 10 MEQ/100 ML PLCT IV SCH ×4 (11:34→18:01)
[2022-05-26] MEDS ORDERED: fentaNYL citrate 100 MCG/2 ML VIAL IV PRN (13:39)
[2022-05-26] MEDS ORDERED: ePHEDrine sulfate 50 MG/ML AMP IV PRN (13:39)
[2022-05-26] MEDS ORDERED: ONDANSETRON INJ 2 MG/ML 2 ML VIAL IV PRN (13:39)
[2022-05-26] MEDS ORDERED: ATROPINE SULFATE 0.1 MG/ML 10ML SYR IV PRN (13:39)
[2022-05-26] MEDS ORDERED: DEXAMETHASONE SOD INJ 4 MG/ML VIAL ONE (13:55)
[2022-05-26] MEDS ORDERED: fentaNYL citrate 100 MCG/2 ML VIAL ONE ×2 (13:55→14:43)
[2022-05-26] MEDS ORDERED: LIDOCAINE 2% MPF LOCAL 5 ML VIAL INFIL ONE (13:55)
[2022-05-26] MEDS ORDERED: ONDANSETRON INJ 2 MG/ML 2 ML VIAL ONE (13:55)
[2022-05-26] MEDS ORDERED: MIDAZOLAM HCL 1 MG/ML 2ML VIAL ONE (13:55)
[2022-05-26] MEDS ORDERED: PROPOFOL IV EMULSION 10 MG/ML 20 ML VIAL IV ONE ×2 (13:55→15:04)
[2022-05-26] MEDS ORDERED: oxyCODONE HCL IR 5 MG TAB (IMMEDIATE RELEASE) PO PRN (15:14)
--- NOTE | 2022-05-26 15:36 | Operative Report ---
PG Post Operative Report Pre & Post Diagnosis Operation Date: 05/26/22 12:40 Pre-Op Diagnosis: Abscess of left leg Post-Op Diagnosis: Abscess of left leg I identified the patient and participated in the time-out.: Yes Procedure Operation Date: 05/26/22 12:40 Actual Procedures p Incision and Drainage Left Leg(Left) - Dell Stearns MD Complexity modifier: The patient's BMI exceeded 50. This complicated positioning and extra measures needed to be ensured for appropriate wound closure due to obesity associated venous stasis. This variable added at least double the amount of time to complete the case. Surgeon Dell Stearns MD Baster Hand Jayden Nguyen PA-C Estimated Blood Loss 20 Findings See Below 6 x 2 cm subfascial abscess encountered easily through the medial tibial incision. Thin seropurulent fluid encountered and cultured. 3000 mL of irrigation. Closed over [place] drain. Specimens Cultures x2 Drains Lang through the wound Anesthesia Type General Complications none Disposition Accompanied Patient To Recovery: No Disposition: Recovery Room Indications 21-year-old male developed leg swelling, erythema and significant pain. He was admitted to the emergency room and left lower extremity cellulitis complicated by a small abscess. I explained to him the findings and recommended decompression of the abscess and obtaining cultures to help tailor his antibiotic treatment and hopefully shorten the course. We discussed the risks and benefits of surgery in detail, as outlined in the consultation note. Infor med consent was obtained today in the preop holding area. Description of Procedure On the day of surgery, the patient was greeted in the preoperative holding area. The informed consent was reviewed and confirmed by myself and the patient. The patient identified the surgical site and was marked by me. The patient was then turned over to anesthesia. He was taken to the operating room, and placed upon the OR table. Anesthesia was induced. A nonsterile turn was placed high in the thigh. The left lower extremities then prepped and draped in usual sterile fashion. Surgical timeout was called by the circulating nurse, and verified all present. Antibiotics have been on schedule from the floor. I held elevation for at least 3 minutes, and the tourniquet is inflated to 250 mmHg for a total of 11 minutes. The abscess was palpable and confirmed by CT guidance. A 6 cm incision was made over the corresponding swelling. Dissection was carried down with Bovie electrocautery through the subcutaneous tissues. The pretibial fascia was then opened and there was a reflux of thin seropurulent fluid. This pocket was explored and cultured at its base. Did not track more than 6 cm distal, and about 3 cm deep to the fascia. Healthy appearing muscle bellies around it. The tourniquet was deflated. Hemostasis was achieved using minimal Bovie electrocautery. Sharp debridement was carried out. 3000 mL of gravity flow irrigation was then run through the wound to fully irrigate and debride it. The [place] drain was stuffed down to the deepest portion of the cavity. The fascial layer was approximated with antibiotic impregnated 0 Vicryl stitches. The full-thickness dermis and subcuticular layer was captured using several interrupted vertical mattress sutures, with a [place] drain through the apex of the wound. Wound was dressed with Sterile Xeroform, plain gauze, ABD, Webril, and contained by 6 inch Tico wrap. Patient tolerated the procedure well, awoke in the operating without complication, and was transferred to the recovery area in stable condition. Disposition: He will return to the hospitalist service for antibiotic treatment for his cellulitis. The culture should be followed for sensitivities; however, antibiotics have been going for at least 12 hours. DVT prophylaxis could be early ambulation, mechanical prophylaxis when in bed, with relative indication for daily aspirin until ambulatory. He was remain inpatient for parenteral antibiotic therapy until clinical and laboratory evidence of improvement. Physician health center assistant attestation: Jayden Nguyen PA-C was present and scrubbed for the duration of the case. He was essential to prepping/draping, patient positioning, retraction, and assistance with wound closure. I attest to the content of the Intraoperative Record and any orders documented therein. Any exceptions are noted below.
[2022-05-26] MEDS: ACETAMINOPHEN 325 MG TAB PO PRN (15:48)
--- NOTE | 2022-05-26 16:09 | Anesthesiology Progress Note ---
Date of Service May 26, 2022 Anesthesia Post Procedure Vital Signs Vital Signs: Temp Pulse Pulse Resp BP Pulse Ox O2 Del Method 05/26/22 16:00 115 H 25 H 147/95 H 94 Nasal Cannula 05/26/22 15:50 115 H 20 122/86 95 Oxymask 05/26/22 15:40 107 H 18 162/92 H 95 Oxymask 05/26/22 15:32 101.1 F H 108 H 20 157/90 H 95 Oxymask 05/26/22 14:07 99.9 F H 110 H 20 142/78 H Room Air 05/26/22 09:07 Room Air 05/26/22 07:42 99.5 F 91 H 20 150/77 H 97 Room Air 05/25/22 19:59 99.9 F H 107 H 20 116/76 98 Room Air 05/25/22 17:14 103 H 20 147/77 H 97 Room Air O2 Flow Rate 05/26/22 16:00 3 05/26/22 15:50 10 05/26/22 15:40 10 05/26/22 15:32 10 05/26/22 14:07 05/26/22 09:07 05/26/22 07:42 05/25/22 19:59 05/25/22 17:14 Pain Intensity Left Leg: Pain Intensity: 5 Left Great Toe: Pain Intensity: 4 Transfer of Care Handoff Completed per policy Notes Mental Status: alert / awake / arousable and participated in evaluation Patient Amnestic to Procedure: Yes Nausea / Vomiting: adequately controlled Pain: adequately controlled Airway Patency, RR, SpO2: stable & adequate BP & HR: stable & adequate Hydration State: stable & adequate Anesthetic Complications: no major complications apparent and Pt Satisfied with anesthetic care
[2022-05-26] MEDS: cefTRIAXone SODIUM 2,000 MG in DEXTROSE 5% 50 ML IV SCH (16:33)
[2022-05-26] MEDS: DAPTOmycin 400 MG in SYRINGE 0 ML IV SCH (20:16)
--- NOTE | 2022-05-27 08:26 | Hospitalist Progress Note ---
Date of Service May 27, 2022 Assessment & Plan (1) Cellulitis of left leg: Plan: -Patient is currently afebrile, hemodynamically stable, and stable on RA (96%) -Patient noted to have cellulitis of the LLE, CT imaging revealed an approximately 4 x 2.6 x 1 cm abscess in the left tibial midshaft -Currently on Ceftriaxone 2gm IV Daily and Daptomycin 400mg IV daily -Patient had I&D and bk drain placed 05/26/22 -Awaiting culture of leg wound -Elevated WBC today possibly acute phase reactant will repeat in AM -Tylenol and morphine for pain -AM labs (2) Paronychia due to ingrown nail: Plan: -Likely the source of his infection -Patient may need to be seen by podiatry on discharge (3) Elevated LFTs: Plan: -AST noted to be 41 yesterday and ALT at 53, likely due to fatty liver disease -improved today -Cont to monitor labs (4) Elevated CK: Plan: Will repeat CK level in the AM if rising will have to consider discontinuing the Daptomycin Admission and Anticipated Discharge Date Admission Date: May 25, 2022 Subjective Patient is awake in bed and states he thinks his leg feels some better. Surgical dressing in place. Per OR report has bk drain in place. Patient denies any abdominal pain, myalgias, nausea, vomiting or chest pain. He is afebrile. Review of Systems Constitutional: no fever, no chills, no sweats and no body aches Respiratory: no cough, no dyspnea and no hemoptysis Cardiovascular: no chest pain, no dyspnea, no palpitations and no syncope Gastrointestinal: no abdominal pain, no nausea and no vomiting Musculoskeletal: pain left lower leg Denies any myalgias Integumentary: redness and swelling left lower leg and left 1st toe Physical Exam Constitutional: WD/WN, vitals as above (Overweight) Neck: trachea midline, no thyromegaly Respiratory: normal respiratory effort, lungs clear to auscultation Cardiovascular: RRR, no murmur, no edema Gastrointestinal (Abdomen): normal bowel sounds, soft, nontender, no hepatosplenomegaly Skin: surgical dressing in place left leg, intact capillary refil and sensation in toes Neurologic: PERRL, EOMI, accommodation nl, no face palsy, no dysarthria Psychiatric: A+Ox3, euthymic affect Results & Data Results & Data ([facility]) Vital Signs (Past 12 Hours) Vital Signs Temp Pulse Pulse Resp BP Pulse Ox O2 Del Method 05/27/22 08:00 36.6 C 86 16 126/78 96 Room Air 05/27/22 03:07 36.8 C 83 17 129/76 95 Room Air 05/26/22 22:31 36.7 C 86 16 113/71 93 Room Air Laboratory Results Abnormal lab results 05/27/22 05/27/22 05/27/22 Range/Units 08:18 08:18 08:18 WBC 17.23 H (4.8-10.8) K/ul RBC 4.35 L (4.63-6.08) M/uL Hgb 13.3 L (14.0-18.0) g/dl Hct 37.0 L (40.1-51.0) % Neut # (Auto) 14.43 H (1.4-6.5) K/uL Benzie # (Auto) 0.89 H (0.24-0.82) K/uL Immature Gran # (Auto) 0.20 H (0.00-0.02) K/uL Potassium 3.3 L (3.5-5.1) mmol/L Glucose 109 H (70-99(Fasting)) mg/dl Total Creatine Kinase 464 H (30-223) U/L PG Care Time/CCT Total # of Minutes Spent Total Time Spent with Patient: Total time spent is greater than 50% in coordination of care (as documented) at patient's floor/unit and/or counseling patient: Coding Level of Care Code 08782 SUB INP/OBS CARE 2/35MIN Diagnoses Cellulitis of left leg L03.116 Paronychia due to ingrown nail Elevated LFTs R79.89 Elevated CK R74.8
[2022-05-27 08:50] LABS: Basophils # (auto) 0.05 K/uL (0-0.2); Basophils % (auto) 0.3 %; Eosinophils # (auto) 0.01 K/uL (0-0.50); Eosinophils % (auto) 0.1 %; Hemoglobin 13.3 g/dl (14.0-18.0); Immature Granulocytes % (auto) 1.2 %; Lymphocytes # (auto) 1.65 K/uL (1.2-3.4); Lymphocytes % (auto) 9.6 %; Mean Corpuscular Hemoglobin 30.6 pg (25.0-34.0); Mean Corpuscular Hgb Conc 35.9 g/dL (32.0-36.0); Mean Corpuscular Volume 85.1 fL (80.0-100.0); Monocytes # (auto) 0.89 K/uL (0.24-0.82); Monocytes % (auto) 5.2 %; Neutrophils # (auto) 14.43 K/uL (1.4-6.5); Neutrophils % (auto) 83.6 %; Platelet Count 301 K/uL (130-400); RDW Coefficient of Variation 12.8 % (11.5-14.5); RDW Standard Deviation 39.8 fL (36.4-46.3); Red Blood Count 4.35 M/uL (4.63-6.08); White Blood Count 17.23 K/ul (4.8-10.8)
[2022-05-27] MEDS: ENOXAPARIN INJ 40 MG/0.4 ML SYR SQ SCH ×2 (08:55→20:03)
[2022-05-27 09:14] LABS: Alanine Aminotransferase 35 U/L (7-52); Albumin Globulin Ratio 0.9 (0.9-2); Albumin Level 3.6 gm/dl (3.4-5.0); Alkaline Phosphatase 55 U/L (34-104); Anion Gap 8 (3-11); Aspartate Aminotransferase 26 U/L (13-39); BUN Creatinine Ratio 15.1 (10-20); Bilirubin,Total 0.8 mg/dl (0.2-1.0); Blood Urea Nitrogen 11 mg/dl (6-23); Calcium 8.9 mg/dl (8.5-10.1); Carbon Dioxide 27 mmol/L (21-32); Chloride 101 mmol/L (98-107); Creatinine Clr Calc Pharmacy 240.7 ml/min; Est GFR (African American) > 150.0 ml/min; Est GFR (Non-African American) 132.6 ml/min; Globulin 3.8 gm/dl (2.5-4.0); Glucose 109 mg/dl (70-99(Fasting)); Potassium 3.3 mmol/L (3.5-5.1); Sodium 136 mmol/L (136-145); Total Protein 7.4 gm/dl (6.0-8.3)
[2022-05-27] MEDS ORDERED: POTASSIUM CHLORIDE CRTAB 20 MEQ TABCR PO STA (09:47)
--- NOTE | 2022-05-27 12:31 | Orthopedic Progress Note ---
Date of Service May 27, 2022 Assessment & Plan (1) Abscess of left leg: (2) Cellulitis of left leg: (3) Ingrown toenail of both feet: Plan POD1 status post left leg incision and debridement of an abscess complicating cellulitis. Making progress as expected. -Continue parenteral therapy until an oral agent could be selected. -May be weightbearing and range of motion as tolerated to the left lower extremity. -Dressing changes can be done daily and as needed for exams and checks. -DVT prophylaxis is a relative indication. I would recommend aspirin therapy until regularly ambulatory. -Follow laboratory parameters but overall clinically improved. Disposition: Defer to management of cellulitis. Consider the abscess resolved. I will continue to follow wound. Can transition to outpatient status when appropriate oral antibiotic regimen for cellulitis can be established. I will continue to follow the patient and cultures as an outpatient. We will need a wound check and sutures removed at 2 weeks postop. I discussed this with the patient at the bedside. His mother was present. We will place a discharge instruction Subjective Feels well. Pain improved but admits not moving much today. Has been elevating. Appetite good. Doesn't feel has had any side effects of antibiotics Review of Systems All systems reviewed & are unremarkable except as noted in HPI & below. Physical Exam LLE: dressing taken down. Erythema much improved. Mild erythema and cellulitic edema medial leg just proximal to incision. Incision well approximated. Minimal drainage onto the overnight dressing. The Lang drain was patent. I could not express anything along the drain. Drain was removed. A few cc of dark red serous drainage was expressed through the apex of the incision, as planned. Mildly tender but less so than preoperative. Neurovascular intact. Results & Data Results & Data Laboratory Results Laboratory Tests 05/26/22 05/27/22 07:39 08:18 WBC 12.77 H 17.23 H Hct 37.0 L Neut # (Auto) 14.43 H Cultures negative at 24 hours Diagnostic Findings . PG Care Time/CCT Total # of Minutes Spent Total Time Spent with Patient: Total time spent is greater than 50% in coordination of care (as documented) at patient's floor/unit and/or counseling patient: Coding Level of Care Code 28120 Post Operative Follow-Up Diagnoses Abscess of left leg L02.416 Cellulitis of left leg L03.116 Ingrown toenail of both feet L60.0
[2022-05-27] MEDS: cefTRIAXone SODIUM 2,000 MG in DEXTROSE 5% 50 ML IV SCH (13:59)
[2022-05-27] MEDS: DAPTOmycin 400 MG in SYRINGE 0 ML IV SCH (20:04)
[2022-05-28 08:22] LABS: Basophils # (auto) 0.07 K/uL (0-0.2); Basophils % (auto) 0.6 %; Eosinophils # (auto) 0.09 K/uL (0-0.50); Eosinophils % (auto) 0.7 %; Hematocrit (blood only) 39.8 % (40.1-51.0); Hemoglobin 13.8 g/dl (14.0-18.0); Immature Granulocytes % (auto) 3.2 %; Lymphocytes # (auto) 2.41 K/uL (1.2-3.4); Lymphocytes % (auto) 19.5 %; Mean Corpuscular Hemoglobin 30.1 pg (25.0-34.0); Mean Corpuscular Hgb Conc 34.7 g/dL (32.0-36.0); Mean Corpuscular Volume 86.9 fL (80.0-100.0); Mean Platelet Volume 10.9 fL (9.4-12.4); Monocytes # (auto) 0.74 K/uL (0.24-0.82); Neutrophils # (auto) 8.68 K/uL (1.4-6.5); Platelet Count 391 K/uL (130-400); RDW Standard Deviation 40.8 fL (36.4-46.3); Red Blood Count 4.58 M/uL (4.63-6.08); White Blood Count 12.39 K/ul (4.8-10.8)
[2022-05-28] MEDS: ENOXAPARIN INJ 40 MG/0.4 ML SYR SQ SCH ×2 (08:29→20:29)
[2022-05-28 08:48] LABS: Albumin Globulin Ratio 0.9 (0.9-2); Albumin Level 3.7 gm/dl (3.4-5.0); BUN Creatinine Ratio 15.5 (10-20); Bilirubin,Total 0.7 mg/dl (0.2-1.0); Creatinine Clr Calc Pharmacy 209.2 ml/min; Est GFR (African American) 145.1 ml/min; Est GFR (Non-African American) 125.2 ml/min; Globulin 3.9 gm/dl (2.5-4.0); Potassium 3.6 mmol/L (3.5-5.1); Total Protein 7.6 gm/dl (6.0-8.3)
--- NOTE | 2022-05-28 12:30 | Hospitalist Progress Note ---
Date of Service May 28, 2022 Assessment & Plan (1) Cellulitis of left leg: Plan: -Patient is currently afebrile, hemodynamically stable, and stable on RA (94%) -Patient noted to have cellulitis of the LLE, CT imaging revealed an approximately 4 x 2.6 x 1 cm abscess in the left tibial midshaft -Currently on Ceftriaxone 2gm IV Daily and Daptomycin 400mg IV daily -Patient had I&D and bk drain placed 05/26/22 -Patient had the Bk drain pulled 05/27/22 -Awaiting culture of leg wound (currently no growth) -Elevated WBC yesterday, likely acute phase reactant improving today -Tylenol and morphine for pain -AM labs (2) Paronychia due to ingrown nail: Plan: -Likely the source of his infection -Patient should follow up with a equipment superintendent as outpatient (3) Elevated LFTs: Plan: -Transaminases mildly elevated and now improved, likely due to fatty liver disease -Discussed weight loss and diet changes -Cont to monitor labs (4) Elevated CK: Plan: Patient continues to have no myalgias Continue IV antibiotics today and tomorrow will private branch exchange service adviser to po antibiotics (Bactrim DS BID) Admission and Anticipated Discharge Date Admission Date: May 27, 2022 Subjective Patient is awake in bed and states he is feeling some better. He states he was able to get up out of bed today and go to the bathroom. Patient states he would like another day to recover. Culture is still no growth to date. He denies any myalgias. Review of Systems Review of Systems: Patient denies any fevers. He had some chills. He admits to pain in left lower leg. He denies any chest pain, SOB, cough, abdominal pain or nausea or vomiting. All other ROS negative unless stated otherwise in the HPI Constitutional: no fever, no chills, no sweats and no body aches Respiratory: no cough, no dyspnea and no hemoptysis Cardiovascular: no chest pain, no dyspnea, no palpitations and no syncope Gastrointestinal: no abdominal pain, no nausea and no vomiting Musculoskeletal: pain left lower leg Denies any myalgias Psychiatric: no depression, no hopelessness and no anxiety Physical Exam Constitutional: WD/WN, vitals as above (Overweight) Neck: trachea midline, no thyromegaly Respiratory: normal respiratory effort, lungs clear to auscultation Cardiovascular: RRR, no murmur, no edema Gastrointestinal (Abdomen): normal bowel sounds, soft, nontender, no hepatosplenomegaly Skin: erythema improving Left leg. Iodoform packing in place and surgical dressing clean and intact. Left first ingrown toe nail also improved, nontender and no discharge Neurologic: PERRL, EOMI, accommodation nl, no face palsy, no dysarthria Psychiatric: A+Ox3, euthymic affect Results & Data Results & Data ([facility]) Vital Signs (Past 12 Hours) Vital Signs Temp Pulse Resp BP Pulse Ox O2 Del Method 05/28/22 07:40 37.1 C 83 18 108/70 94 Room Air Laboratory Results Abnormal lab results 05/27/22 05/28/22 05/28/22 Range/Units 08:18 07:43 07:43 WBC 12.39 H (4.8-10.8) K/ul RBC 4.58 L (4.63-6.08) M/uL Hgb 13.8 L (14.0-18.0) g/dl Hct 39.8 L (40.1-51.0) % Neut # (Auto) 8.68 H (1.4-6.5) K/uL Immature Gran # (Auto) 0.40 H (0.00-0.02) K/uL Total Creatine Kinase 464 H 554 H (30-223) U/L PG Care Time/CCT Total # of Minutes Spent Total Time Spent with Patient: Total time spent is greater than 50% in coordination of care (as documented) at patient's floor/unit and/or counseling patient: Coding Level of Care Code 83333 SUB INP/OBS CARE 06/08MIN Diagnoses Cellulitis of left leg L03.116 Paronychia due to ingrown nail Elevated LFTs R79.89 Elevated CK R74.8
[2022-05-28] MEDS: cefTRIAXone SODIUM 2,000 MG in DEXTROSE 5% 50 ML IV SCH (14:28)
[2022-05-28] MEDS: DAPTOmycin 400 MG in SYRINGE 0 ML IV SCH (20:29)
[2022-05-29] MEDS: ENOXAPARIN INJ 40 MG/0.4 ML SYR SQ SCH (08:23)
--- NOTE | 2022-05-29 08:57 | Orthopedic Progress Note ---
Date of Service May 29, 2022 Assessment & Plan (1) Abscess of left leg: (2) Cellulitis of left leg: (3) Ingrown toenail of both feet: Plan POD3 status post left leg incision and debridement of an abscess complicating cellulitis. Much improved. -Agree with transition to outpatient care on oral antibiotic directed at treating cellulitis. -Will continue to follow the culture as an outpatient if therapy should be changed. -May be weightbearing and range of motion as tolerated to the left lower extremity. -Keep the wound covered until discharge. Can be changed as needed for exams. May get it wet in shower after 5 days. Discharge instructions placed. -DVT prophylaxis is a relative indication. I would recommend aspirin therapy until regularly ambulatory. Disposition: Per medicine team when oral antibiotic regimen is appropriate. Follow-up in orthopedic clinic in approximately 2 weeks, sooner if develops fevers or recurrence of symptoms. Subjective Reports no pain. No issues with antibiotics. Feels fine. Review of Systems All systems reviewed & are unremarkable except as noted in HPI & below. Physical Exam LLE: dressing taken down to reveal a well approximated incision. Nearly resolved erythema. Soft tissues are softened significantly. Much improved. I cannot express any drainage from the incision site. Constitutional WD/WN, vitals as above no acute distress and not intoxicated appearing Respiratory normal respiratory effort; no labored breathing Cardiovascular Extremities: normal capillary refill Results & Data Results & Data Laboratory Results Laboratory Tests 05/27/22 05/28/22 08:18 07:43 WBC 17.23 H 12.39 H Neut # (Auto) 14.43 H 8.68 H 1 of 2 wound cultures from the OR show pinpoint growth, no speciation yet, will be read incubated. Uncertain of the significance Diagnostic Findings . PG Care Time/CCT Total # of Minutes Spent Total Time Spent with Patient: Total time spent is greater than 50% in coordination of care (as documented) at patient's floor/unit and/or counseling patient: Coding Level of Care Code 92160 Post Operative Follow-Up Diagnoses Abscess of left leg L02.416 Cellulitis of left leg L03.116 Ingrown toenail of both feet L60.0
[2022-05-29] MEDS ORDERED: SULFAMETHOXAZOLE/TRIMETHOPRIM DS 800/160MG TAB PO SCH (09:00)
--- NOTE | 2022-05-29 09:14 | Discharge Summary ---
Date of Service May 29, 2022 Admission HPI Per Admitting Provider Edwin is a 21 year old male with a PMH significant for morbid obesity who presented to the [facility] ED on 05/25/22 at the recommendation of his PCP due to concerned for possible cellulitis of the LLE. In the ED the patient was found to be afebrile, hemodynamically stable, and stable on RA, he was noted to be tachycardic in the low 100's. Labs were significant for a WBC of 10.98, absolute neutrophil count of 8.61, stable hgb and platelets, stable cr of 0.9 with stable electrolytes, AST of 41, ALT of 53, CRP of 11, procal of 2.4, US of the LLE was read as "1. No evidence of deep venous thrombus within the left lower extremity. 2. Complex elongated fluid collection of the deep soft tissues of the medial left calf that measures 5.2 x 1.5 x 3.8 cm. The sonographic appearance is nonspecific. Differential considera tions include a developing abscess or hematoma. 3. Prominent left inguinal lymph nodes which are likely benign.". The patient was given one dose of ceftriaxone and ordered Vancomycin, he was given 2L NSS bolus prior to admission. The ED staff spoke with orthopedics who recommended medicine admission for initial IV antibiotic therapy, they will follow and determine if he will need to go to the OR. At the time of the exam the patient was resting comfortably in bed in no acute distress with his father sitting bedside. The patient states that he has had an ingrown toenail on the great toe of his LLE for approximately 2 months. He states that he had not yet going to the doctor to have it evaluated due to being in the middle of basketball season. This past weekend the patient states that he noticed redness, swelling and pain staring around his left ankle and moving proximally towards his left knee. He started to experience fever, chills, nausea, and vomiting over the weekend but this has subsided. He has been unable to bear much weight on the LLE since then. He denies taking medications for his pain. Please refer to Dr. Mary's attestation for any changes to the treatment plan Admission Exam Per Admitting Provider Physical Exam: General:In no acute distress, stated age, morbidly obese, non-toxic appearing HEENT:Normocephalic, atraumatic, no scleral icterus, pupils around round, sy mmetrical, and reactive to light, moist mucus membranes, trachea midline, no thyromegaly Chest/Pulm:No respiratory distress, symmetrical chest expansion, clear breath sounds throughout Cardiac:tachycardic rate, regular rhythm, no murmurs noted Abdomen:Negative for ascites and bruising, normoactive bowel sounds, soft, non-tender to palpation throughout Musculoskeletal:Ingrown toenail noted on the left great toe which appears swollen but is not draining, patient noted to have swelling, erythema and tenderness to palpation of the LLE from the proximal ankle to the distal knee Extremities:Radial, dorsalis pedis, and posterior tibial pulses are intact and symmetrical, no edema noted in the BL LE's Skin:erythema, swelling, and tenderness to the LLE Neuro:Alert and oriented to person, place, month, year, and president, no focal defects, CN II-XII tested and intact, finger to nose test negative, no tremors noted Psych:No acute distress, calm and cooperative during the exam Principal Diagnosis cellulitis left leg Discharge Exam Constitutional WD/WN, vitals as above (Overweight) Neck trachea midline, no thyromegaly Respiratory normal respiratory effort, lungs clear to auscultation Cardiovascular RRR, no murmur, no edema Gastrointestinal (Abdomen) normal bowel sounds, soft, nontender, no hepatosplenomegaly Skin Left leg much less erythema, packing removed by surgery today Ingrown toe nail left 1st toe nail improving Neurologic PERRL, EOMI, accommodation nl, no face palsy, no dysarthria Psychiatric A+Ox3, euthymic affect Discharge Data Allergies Allergy/AdvReac Type Severity Reaction Status Date / Time No Known Drug Allergies Allergy Verified 05/25/22 17:10 Consultations 05/25/22 17:23 Consult Orthopedic Surgery Stat 05/25/22 17:26 ED Decision to Admit Stat Procedures Performed Operation Date: 05/26/22 12:40 Actual Procedures p Incision and Drainage Left Leg(Left) - Dell Stearns MD Ordered Studies 05/25/22 12:48 US leg [US venous doppler LE LT] Stat 1. No evidence of deep venous thrombus within the left lower extremity. 2. Complex elongated fluid collection of the deep soft tissues of the medial left calf that measures 5.2 x 1.5 x 3.8 cm. The sonographic appearance is nonspecific. Differential considerations include a developing abscess or hematoma. 3. Prominent left inguinal lymph nodes which are likely benign. 05/25/22 16:08 CT leg [CT tib/fib LT w con] Stat Findings consistent with an ascending infection with cellulitis involving the left foot, ankle and lower leg extending to the level of the proximal shaft of the tibia. Associated small abscess within the deep subcutaneous tissues at the level of the tibial midshaft, measuring 4 x 2.6 x 1 cm. No soft tissue gas. No evidence for acute osteomyelitis. No fascial fluid. Hospital Course (1) Cellulitis of left leg: -Patient is currently afebrile, hemodynamically stable and stable on RA (95%) -Patient noted to have cellulitis of the LLE, CT imaging revealed an approximately 4 x 2.6 x 1 cm abscess in the left tibial midshaft -Was treated with Ceftriaxone 2gm IV Daily and Daptomycin 400mg IV daily x 4 days -Started Bactrim DS this AM -Patient had I&D and lang drain placed 05/26/22 -Patient had the Lang drain pulled 05/27/22 -Patient had packing removed today 05/29/22 -Awaiting culture of leg wound (currently no growth - pin point growth and reincubating) -Tylenol and morphine for pain (2) Paronychia due to ingrown nail: -Likely the source of his infection -Patient should follow up with a glassware maker as outpatient (3) Elevated LFTs: -Transaminases mildly elevated and now improved, likely due to fatty liver disease -Discussed weight loss and diet changes -Cont to monitor labs (4) Elevated CK: Patient continues to have no myalgias Continue IV antibiotics today and tomorrow will gear changer to po antibiotics (Bactrim DS BID) Plan Discharging to home today Continue oral Bactrim DS for another 7 days Total Time Total Time Spent Total Time Spent (In Minutes): 35 Discharge Plan Discharge Items Patient Disposition: Home - Self-Care Reason For Visit: lle swelling Discharge Diagnosis: cellulitis and abscess left leg Condition on Discharge: Good Activity: Per Instructions section Lifting: Gradually increase as tolerated Bathing Comment: per instructions below Exercise/Sports: Wait until after follow-up appointment Non-emergency contact: Primary Care Provider, Surgeon and Specialist Call non-emergency contact if: you have any medication questions, your symptoms worsen, your temperature is above 101.5, your wound has increased redness, your wound has increased drainage and your wound pain has increased Follow-up/Referrals: Charito Bui MD [Primary Care Provider] - [facility] Provider Instructions: You were admitted with left leg pain and found to have cellulitis (skin infectio ns) and an abscess (pocket of fluid). You were taken to the OR by surgery to have that area drained. You will be discharged to home today and will need to continue oral antibiotics. You will need to continue the Bactrim DS one 2 x per day, start that medication tonight after you flower picker your rx at [facility] in [place]. Also you should take a Aspirin 325mg one per day with food starting tomorrow. You should take this until you are ble to resume all your regular activity and are fully mobile. You also will need a follow up with surgery and should follow with a glassware maker. [facility] will set this podiatry appointment up for you. If you do not hear from anyone by Monday, please reach out to your family doctor about an appointment with a glassware maker for your ingrown toe nail. DO NOT try and cut the ingrown toe nail out yourself. You should also follow up with surgery and your family doctor regarding the final culture results from the abscess fluid. Orthopaedic Instructions after Incision and Debridement Surgery: Please keep your wound clean and dry. Do not remove any of the sutures. Sutures will be removed at your follow-up appointment with orthopedic surgery. Please continue daily dressing changes until your follow-up appointment. Wound can be left uncovered when there is no drainage for 24 hours. If there is no drainage onto the dressing for total of 24 hours, you may shower after 5 days from surgery. Allow soap and water to run over the incision, no scrubbing, and pat dry. Do not submerse (sitting in bathtub, hot tub, jacuzzi, pool, etc) the wound for at least 3 weeks. You may bear weight on your lower extremities as tolerated. For pain control please use Acetaminophen and Ibuprofen, as needed. You may also have a stronger pain medication prescribed to you at discharge. You can also apply ice to the surgical site. To reduce the risk of dangerous blood clots, recommend aspirin 325 mg by mouth daily or the medication for blood clots recommended by your medical team. Orthopedic clinic follow-up should be in 2-3 weeks after surgery. Please contact the clinic ([phone]) for followup appointment upon discharge. Pending Studies at Discharge: Yes Studies:: final fluid cultures from abscess Stand-Alone Forms: My [facility], Work/School Release Medications and DC Order Prescriptions: New sulfamethoxazole-trimethoprim [Bactrim DS] 800-160 mg Tablet 1 tab PO Q12 Qty: 14 0RF Discharge Orders: Discharge Order (Routine); Ordered 05/29/22 Ordered By: Aniya Friedman Admission Data Admit Date/Time: 05/27/22 17:22 Attending Provider: Joesph Lunsford Admit Provider: Gregory Mary Primary Care Provider: Charito Bui Other Providers: Dell Stearns ; Gregory Mary Other Interventions: Discharge Summary Assessment (RN) Last Done: 05/29/22 12:22 Supervising Physician Co-Signing Physician Notes Patient seen and examined at bedside. During face to face encounter, I obtained a history of her hospital stay, and obtained a physical examination. I discussed discharge plan with patient and ALLY Friedman. I reviewed above note and agree with it. Patient was seen and examined for cellulitis. Patient was treated with bactrim as above. Coding Level of Care Code HOSP INP/OBS DISCH >30 MIN Diagnoses Cellulitis of left leg L03.116 Paronychia due to ingrown nail Elevated LFTs R79.89 Elevated CK R74.8 Time Spent (min) 35
== END 2022-05-29 16:11 | disposition home or self-care (01) | DRG 603 ==
LOC: 3W 12:35 → ED 12:35 → SUATTDRO 17:36 → 3W 19:42

== ENCOUNTER 2023-12-10 09:08 | Inpatient (IN) ==
--- NOTE | 2023-12-10 09:27 | Emergency Department Note ---
Impression & Plan Cellulitis ED Provider Note NAME: JEFF ORANTES II AGE: 23 SEX: M : 2000 ARRIVES VIA: Walk-In INFORMANT: Patient, ED PROVIDER(S): Shaji Sparks DO CHIEF COMPLAINT: Leg swelling HPI: The patient is a 23-year-old male who presented to the emergency department for leg swelling. He has a history of an incision and drainage for an abscess on his left leg 2 years ago. He states he started having symptoms of nausea and vomiting over the course of the last few days initially but then started noticing swelling of his left leg yesterday. He denies having any chest pain or difficulty breathing. He denies having any trauma. He does work in a [employer] but denies having any foreign body to the leg. The patient has a subjective fever as well. The patient has not been seen by his family doctor for the symptoms but came to the emergency department for further evaluation. ROS: See above HPI for pertinent positives & negatives. A total of 10 systems reviewed and were otherwise negative. PAST MEDICAL HISTORY: See Below PAST SURGICAL HISTORY: See Below FAMILY HISTORY: See Below SOCIAL HISTORY: See Below HOME MEDICATIONS: See Below ALLERGIES: See Below VITALS: See Below PHYSICAL EXAMINATION: GENERAL: Patient is awake alert in no acute distress patient is resting comfortably and showing no signs of anxiety EYES: The conjunctivae are clear. The pupils are round and reactive. EARS, NOSE, MOUTH AND THROAT: The nose is without any evidence of any deformity. NECK: The neck is nontender and supple. RESPIRATORY: Normal respiratory effort is noted there is no evidence of wheezing rhonchi or rales CARDIOVASCULAR: Regular rate and rhythm noted there no murmurs rubs or gallops normal S1 normal S2. GASTROINTESTINAL: The abdomen is soft. Abdomen is nontender. MUSCULOSKELETAL/EXTREMITIES: There is no evidence of gross deformity full range of motion is noted in the hips and shoulders. SKIN: There is symmetric swelling and erythema noted to the left lower extremity. There is no specific fluctuance noted. Pulses are symmetric in both feet. NEUROLOGIC: Patient is awake alert and oriented x3 MEDICAL DECISION MAKING: The patient is a 23-year-old male who presented to the emergency department for an evaluation of leg pain and redness. The patient is a history of a leg abscess with cellulitis in the past. He started having nausea and vomiting. He was concerned that this could be getting worse. I discussed the patient's laboratory and radiographic studies with him. Ultrasound did not show any signs of DVT but also could not completely visualize the area that I was concerned. For this reason CT was obtained but does not show any signs of abscess. Given the extensive cellulitis as well as the patient's laboratory findings I do not feel that he would be a great candidate for outpatient management at this time. I will discuss his condition with the on-call [facility] hospitalist. Mostly the patient was normotensive and not tachycardic. He did have 1 episode of hypotension while in the emergency department. He was treated with IV fluids as well as IV antibiotics. Triage Nursing notes reviewed. Prior medical records reviewed Vital Signs: reviewed and remarkable for intermittent hypotension. Differential diagnosis: Cellulitis, abscess, MRSA infection, DVT, necrotizing fasciitis, dermatitis, drug eruption, allergic reaction, as well as other pathologies. ER treatment provided: See below Diagnostics interpreted by me: ECG: none Cardiac Monitoring: An order was placed for continuous cardiac monitoring. The monitor shows a rate of 80 bpm with sinus rhythm. Laboratory studies: As stated above and show below. Imaging studies: See below. Radiographic imaging was reviewed by myself Consultation(s): I discussed this case with [facility]. Past Med/Surg History Problem List (Updated 12/10/23 @ 12:27 by Shaji Sparks DO) Cellulitis (Acute) History of incision and drainage 05/2022 (Daryn) Left leg abscess Paronychia due to ingrown nail Ingrown toenail of both feet Abnormal thyroid function test (Acute) [id number] spots (Acute) Medical History Elevated CK Abscess of left leg Elevated LFTs Cellulitis of left leg Acute pharyngitis, unspecified Family History Mother No problems noted. Father No problems noted. Social History Smoking Status: Never smoker Second Hand Exposure: No; Do You Dip or Chew Tobacco: No; Hx Alcohol Use: Yes Alcohol type: beer Hx Substance Use: No Preferred Language: Turkmen Communication Ability: Effective Rolled Seat Trimmer Required: No Beliefs That Will Affect Care: None Current Living Situation: Family Feels Safe at Home: Yes Assistive Devices: None Allergies Allergies Allergy/AdvReac Type Severity Reaction Status Date / Time No Known Drug Allergies Allergy Verified 12/10/23 11:24 Home Meds Home Medications Medication Instructions Recorded Confirmed No Known Home Medications 12/10/23 12/10/23 Results & Data (ED) Vital Signs Vital Signs - 24 hr 12/10/23 09:14 12/10/23 11:09 12/10/23 11:23 Temperature 37.5 C Temperature Source Oral Pulse Rate 101 H 81 Pulse Rate [Apical] 84 Pulse Rhythm [Apical] Regular Pulse Strength [Apical] Normal Respiratory Rate 22 18 Respiratory Effort / Characteristics Non-Labored Spontaneous Respiratory Depth Normal Blood Pressure 113/69 Blood Pressure [Left Arm] 120/70 Blood Pressure Mean 83 Blood Pressure Mean [Left Arm] 86 Blood Pressure Position Sitting Blood Pressure Position [Left Arm] Semi-fowlers Pulse Oximetry 95 95 Oxygen Delivery Method Room Air Room Air Sepsis Recent Fever Within 48 Hours No Sepsis New/Unexplained Change in Mental Status No Sepsis Action Taken by Nursing No Action Required Home Medications Current Medication List: was personally reviewed by me Laboratory Data Attestation: I reviewed the patient's lab results. 12/10/23 10:23 12/10/23 10:23 Lab Results 12/10/23 Range/Units 10:23 WBC 14.76 H (4.8-10.8) K/ul RBC 5.15 (4.70-6.10) M/uL Hgb 15.2 (14.0-18.0) g/dl Hct 43.1 (42.0-52.0) % MCV 83.7 (80.0-100.0) fL MCH 29.5 (25.0-34.0) pg MCHC 35.3 (32.0-36.0) g/dL RDW Std Deviation 39.8 (36.4-46.3) fL RDW Coeff of Luz 12.8 (11.5-14.5) % Plt Count 216 (130-400) K/uL MPV 11.3 (9.4-12.4) fL Immature Gran % (Auto) 0.4 % Neut % (Auto) 85.0 % Lymph % (Auto) 7.2 % [place] % (Auto) 7.0 % Eos % (Auto) 0.0 % Baso % (Auto) 0.4 % Neut # (Auto) 12.54 H (1.40-6.50) K/uL Lymph # (Auto) 1.07 L (1.20-3.40) K/uL [place] # (Auto) 1.03 H (0.11-0.59) K/uL Eos # (Auto) 0.00 (0.00-0.50) K/uL Baso # (Auto) 0.06 (0.00-0.20) K/uL Immature Gran # (Auto) 0.06 (0.01-0.20) K/uL Sodium 132 L (136-145) mmol/L Potassium 3.5 (3.5-5.1) mmol/L Chloride 100 (98-107) mmol/L Carbon Dioxide 23 (21-32) mmol/L Anion Gap 9 (3-11) BUN 14 (6-23) mg/dl Creatinine 1.08 (0.6-1.4) mg/dl Est Cr Clr Drug Dosing 126.7 ml/min Est GFR ( Amer) 111.5 ml/min Est GFR (Non-Af Amer) 96.2 ml/min BUN/Creatinine Ratio 13.0 (10-20) Glucose 113 H (70-99(Fasting)) mg/dl Calcium 9.2 (8.6-10.3) mg/dl Total Bilirubin 0.9 (0.2-1.0) mg/dl AST 24 (13-39) U/L ALT 31 (7-52) U/L Alkaline Phosphatase 74 (34-104) U/L C-Reactive Protein 20.15 H (0-0.5) mg/dl Total Protein 7.6 (6.0-8.3) gm/dl Albumin 4.1 (3.4-5.0) gm/dl Globulin 3.5 (2.5-4.0) gm/dl Albumin/Globulin Ratio 1.2 (0.9-2) Lipase 20 (11-82) U/L Procalcitonin 2.73 H (0-0.5) ng/ml Administered Medications Discontinued Medications Ceftriaxone Sodium (Rocephin) 2,000 mg in 50 mls @ 100 mls/hr IV NOW STA; Protocol Stop: 12/10/23 09:51 Last Infusion: 12/10/23 10:58 Dose: Infused Documented By: Admin: 12/10/23 10:19 Dose: 100 mls/hr Documented By: RUTH Sodium Chloride (Nss) 1,000 mls @ 999 mls/hr IV .Q1H1M STA Stop: 12/10/23 10:22 Last Infusion: 12/10/23 11:42 Dose: Infused Documented By: Admin: 12/10/23 10:19 Dose: 999 mls/hr Documented By: RUTH Ioversol (Optiray 320 125ml) 119 ml IV ONCE ONE Stop: 12/10/23 11:42 Last Admin: 12/10/23 11:42 Dose: 119 ml Documented By: DALILA Imaging Data Attestation: I personally reviewed and interpreted this imaging study as follows: My Impression: X-ray of the left tib-fib was obtained in the emergency department. My interpretation is no fracture or free air, final report below. Radiologist's Impression: Tibia/Fibula X-Ray 12/10/23 09:22 XR tibia fibula LT 2V HISTORY: 23 years-old Male swelling acute pain and swelling left lower leg COMPARISON: Tibia and fibula CT 05/25/2022 TECHNIQUE: 2 views of left tibia and fibula FINDINGS: [id number] soft tissue swelling. No acute fracture, dislocation, osseous erosion or opaque foreign body. IMPRESSION: Soft tissue swelling without acute osseous abnormality. ACT 112: Negative or not required by law. The above report was generated using voice recognition software. It may contain grammatical, syntax or spelling errors. Electronically signed by: Jagdeep Esposito M.D. 12/10/2023 10:47 AM Venous Doppler Study 12/10/23 09:22 LEFT LOWER EXTREMITY VENOUS DOPPLER HISTORY: Acute pain and swelling of the left lower leg swelling COMPARISON STUDY: 05/25/2022 FINDINGS: There is normal compressibility, flow, and augmentation within the left lower extremity deep venous system. Left inguinal chain lymph nodes measuring up to 1 cm in short axis are nonspecific. IMPRESSION: No DVT within the left lower extremity. ACT 112: Negative or not required by law. Electronically signed by: Jagdeep Esposito M.D. 12/10/2023 11:[address] 12/10/23 11:32 CT tib/fib LT w con HISTORY: 23 years-old Male swelling, hx of abscess acute pain and swelling of the left lower leg COMPARISON: CT 05/25/2022 TECHNIQUE: Multiple axial CT images of the left tibia and fibula were obtained with IV contrast. A dose lowering technique was used consistent with the principals of KALI. FINDINGS: Tendons and ligaments are not well evaluated by CT technique. Moderate cutaneous thickening with subcutaneous edema of the lower leg. No drainable fluid collections. 4 cm focus of linear scarring noted within the area of the previously described abscess. No new abscess identified on today's study. The imaged vascular structures appear unremarkable. No foreign body is seen. Musculature is within normal limits. No subcutaneous gas. Lateral tilt of the patella which demonstrates mild marginal spurring.. Mild degenerative spurring of the calcaneus. Trace joint effusion of the knee. No acute fracture, dislocation or osseous erosion. No suspicious bone lesions. IMPRESSION: 1. Findings suggestive of cellulitis involving the lower leg without abscess. 2. No CT evidence of acute osteomyelitis. ACT 112: Negative or not required by law. The above report was generated using voice recognition software. It may contain grammatical, syntax or spelling errors. Electronically signed by: Jagdeep Esposito M.D. 12/10/2023 12:10 PM Discharge Plan Visit Data Chief Complaint: Infection, Wound Stated Complaint: L LEG SURGERY 2 YRS AGO, THINKS IT'S INFECTED ED Provider: Shaji Sparks Discharge Problem: Cellulitis Patient Disposition: Being Evaluated by Hospitalist Forms Stand Alone Forms: My [employer] Prescriptions Prescriptions: No Action No Known Home Medications Referrals Referrals: Charito Bui MD [Primary Care Provider] - Discharge Problem: Cellulitis Qualifiers: Site of cellulitis: extremity Site of cellulitis of extremity: lower extremity Laterality: left Qualified Code(s): L03.116 - Cellulitis of left lower limb
[2023-12-10] MEDS: SODIUM CHLORIDE 0.9% 1,000 ML IV STA (10:19)
[2023-12-10] MEDS: cefTRIAXone SODIUM 2,000 MG/50 ML BAG IV STA (10:19)
[2023-12-10 10:36] LABS: Basophils # (auto) 0.06 K/uL (0.00-0.20); Basophils % (auto) 0.4 %; Hematocrit (blood only) 43.1 % (42.0-52.0); Hemoglobin 15.2 g/dl (14.0-18.0); Immature Granulocytes # (auto) 0.06 K/uL (0.01-0.20); Immature Granulocytes % (auto) 0.4 %; Lymphocytes # (auto) 1.07 K/uL (1.20-3.40); Lymphocytes % (auto) 7.2 %; Mean Corpuscular Hemoglobin 29.5 pg (25.0-34.0); Mean Corpuscular Hgb Conc 35.3 g/dL (32.0-36.0); Mean Corpuscular Volume 83.7 fL (80.0-100.0); Mean Platelet Volume 11.3 fL (9.4-12.4); Monocytes # (auto) 1.03 K/uL (0.11-0.59); Neutrophils # (auto) 12.54 K/uL (1.40-6.50); Platelet Count 216 K/uL (130-400); RDW Coefficient of Variation 12.8 % (11.5-14.5); RDW Standard Deviation 39.8 fL (36.4-46.3); Red Blood Count 5.15 M/uL (4.70-6.10); White Blood Count 14.76 K/ul (4.8-10.8)
--- NOTE | 2023-12-10 10:49 | XRay Report ---
XR tibia fibula LT 2V HISTORY: 23 years-old Male swelling acute pain and swelling left lower leg COMPARISON: Tibia and fibula CT 05/25/2022 TECHNIQUE: 2 views of left tibia and fibula FINDINGS: [id number] soft tissue swelling. No acute fracture, dislocation, osseous erosion or opaque fore ign body. IMPRESSION: Soft tissue swelling without acute osseous abnormality. ACT 112: Negative or not required by law. The above report was generated using voice recognition software. It may contain grammatical, syntax o r spelling errors. Electronically signed by: Jagdeep Esposito M.D. 12/10/2023 10:47 AM
[2023-12-10 10:53] LABS: Albumin Globulin Ratio 1.2 (0.9-2); Albumin Level 4.1 gm/dl (3.4-5.0); Bilirubin,Total 0.9 mg/dl (0.2-1.0); C Reactive Protein 20.15 mg/dl (0-0.5); Calcium 9.2 mg/dl (8.6-10.3); Creatinine Clr Calc Pharmacy 126.7 ml/min; Est GFR (African American) 111.5 ml/min; Est GFR (Non-African American) 96.2 ml/min; Globulin 3.5 gm/dl (2.5-4.0); Potassium 3.5 mmol/L (3.5-5.1); Total Protein 7.6 gm/dl (6.0-8.3)
--- NOTE | 2023-12-10 11:24 | Ultrasound Report ---
LEFT LOWER EXTREMITY VENOUS DOPPLER HISTORY: Acute pain and swelling of the left lower leg swelling COMPARISON STUDY: 05/25/2022 FINDINGS: There is normal compressibility, flow, and augmentation within the left lower extremity arvin p venous system. Left inguinal chain lymph nodes measuring up to 1 cm in short axis are nonspecific. IMPRESSION: No DVT within the left lower extremity. ACT 112: Negative or not required by law. Electronically signed by: Jagdeep Esposito M.D. 12/10/2023 11:22 AM
[2023-12-10] MEDS: OPTIRAY 320 125ml IV ONE (11:42)
--- NOTE | 2023-12-10 12:12 | CT Scan Report ---
CT tib/fib LT w con HISTORY: 23 years-old Male swelling, hx of abscess acute pain and swelling of the left lower leg COMPARISON: CT 05/25/2022 TECHNIQUE: Multiple axial CT images of the left tibia and fibula were obtained with IV contrast. A do se lowering technique was used consistent with the principals of KALI. FINDINGS: Tendons and ligaments are not well evaluated by CT technique. Moderate cutaneous thickening with subc utaneous edema of the lower leg. No drainable fluid collections. 4 cm focus of linear scarring noted within the area of the previously described abscess. No new abscess identified on today's study. The imaged vascular structures appear unremarkable. No foreign body is seen. Musculature is within normal limits. No subcutaneous gas. Lateral tilt of the patella which demonstrates mild marginal spurring.. Mild degenerative spurring of the calcaneus. Trace joint effusion of the knee. No acute fracture, dislocation or osseous erosion. No suspicious bone lesions. IMPRESSION: 1. Findings suggestive of cellulitis involving the lower leg without abscess. 2. No CT evidence of acute osteomyelitis. ACT 112: Negative or not required by law. The above report was generated using voice recognition software. It may contain grammatical, syntax o r spelling errors. Electronically signed by: Jagdeep Esposito M.D. 12/10/2023 12:10 PM
--- NOTE | 2023-12-10 12:35 | History & Physical Report ---
Date of Service December 10, 2023 Assessment & Plan (1) Sepsis: Plan: Admit to [facility] Currently stable and nontoxic-appearing Presented to the ED due to approximately 48 hours of nausea/vomiting and progressive left calf swelling and erythema Met sepsis criteria on arrival due to tachycardia of 101, leukocytosis of 14, and source being left lower extremity cellulitis Venous Doppler negative for signs of DVT, x-rays and CT of the left lower extremity negative for signs of osteomyelitis and/or abscess Was initially given 1 L NSS and a dose of ceftriaxone in the ED, is currently receiving a second 1 L NSS bolus Will give an additional 250 cc NSS bolus to complete a sepsis fluid bolus based on ideal body weight of 2200 mL Stat blood cultures and lactate were ordered at the time of admission, unfortunate patient had already received a dose of ceftriaxone prior to blood cultures being obtained Will obtain MRSA nasal swab Wound cultures from previous left lower extremity abscess status post I&D approximately 2 years ago grew coag negative Staphylococcus While parenteral vancomycin is the regimen choice for coag negative staph, patient is currently stable, we do not currently have a confirmation of the current infection Due to patient being stable and nontoxic-appearing will continue ceftriaxone at this time, if he is not improving within 24 hours or clinically declining would escalate coverage for coag negative staph and MRSA Subcu Lovenox for DVT prophylaxis Regular diet AM CBC, CMP, mag, PT/INR (2) Cellulitis of left leg: Plan: This is the second episode of cellulitis of the left calf for this patient Will add hemoglobin A1c for the morning to monitor for signs of diabetes mellitus Monitor for improvement with ongoing IV antibiotics Plan Patient was discussed with Dr. Mary at the time of admission History of Present Illness Chief Complaint: LLE swelling, nausea, vomiting Primary Care Provider: Charito Bui MD Edwin is a 23-year-old male with a past medical history significant for morbid obesity, previous left calf cellulitis and abscess from ingrown toenail procedure status post drainage approximately 2 years ago who presented to the [facility] ED on 12/10/2023 with complaints of nausea/vomiting and left lower extremity swelling. He was noted to be tachycardic on arrival at 101 but otherwise stable. Labs were significant for leukocytosis of 14 with neutrophil predominance of 12, sodium of 132, CRP of 20 lipase within normal limits, and Pro-Naif of 2.73. Venous Doppler of the left lower extremity was negative for signs of DVT. The left hip/fib was read as soft tissue swelling without acute osseous abnormality. In CT of the left tib/fib with con was read as findings suggestive of cellulitis involving the lower leg without abscess. No CT evidence of acute osteomyelitis. Patient resting in bed in no acute distress at time of exam with his family bedside. States he had been in his normal state health until 12/08/2023 when he started develop nausea and nonbloody emesis. States that he started developed left lower extremity cellulitis on 12/09/2023. Associated with subjective fever/chills, pain. Denies paresthesias, chest pain, shortness of breath, abdominal pain, dysuria/hematuria, diarrhea, and recent trauma. Please for Dr. Mary's attestation for any changes to the treatment plan Allergies Allergy/AdvReac Type Severity Reaction Status Date / Time No Known Drug Allergies Allergy Verified 12/10/23 11:24 Home Medications Medication Instructions Recorded Confirmed Type No Known Home Medications 12/10/23 12/10/23 History Past Med/Surg History Problem List (Updated 12/10/23 @ 12:53 by Dell Doe PA-C) Cellulitis of left leg Sepsis Cellulitis (Acute) History of incision and drainage 05/2022 (Daryn) Left leg abscess Paronychia due to ingrown nail Ingrown toenail of both feet Abnormal thyroid function test (Acute) [id number] spots (Acute) Medical History Elevated CK Abscess of left leg Elevated LFTs Cellulitis of left leg Acute pharyngitis, unspecified Family History Mother No problems noted. Father No problems noted. 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 Beliefs That Will Affect Care: None Current Living Situation: Family Feels Safe at Home: Yes Assistive Devices: None Physical Exam 2 Physical Exam: Physical Exam: General: In no acute distress, stated age, morbidly obese, non-toxic appearing HEENT: Normocephalic, atraumatic, no scleral icterus, pupils around round, symmetrical, and reactive to light, moist mucus membranes, trachea midline, no thyromegaly Chest/Pulm: No respiratory distress, symmetrical chest expansion, clear breath sounds throughout Cardiac: RRR, no murmurs noted Abdomen: Negative for ascites and bruising, normoactive bowel sounds, soft, non-tender to palpation throughout Musculoskeletal: Symmetrical and without signs of acute trauma, upper and lower extremities with full ROM, no atrophy, spasticity, or flaccidity Extremities: Radial, dorsalis pedis, and posterior tibial pulses are intact and symmetrical, LLE with swelling compared to RLE Skin: Circumferential erythema and swelling of the left calf, erythema does not cross the left ankle or left knee, no fluctuance noted on palpation >No obvious sign of trauma or skin breakdown in the left LE Neuro: Alert and oriented to person, place, month, year, and president, no focal defects, no tremors noted Psych: No acute distress, calm and cooperative during the exam Results & Data Results & Data Vital Signs (Past 12 Hours) Vital Signs Temp Pulse Pulse Resp BP BP Pulse Ox 12/10/23 11:23 81 12/10/23 11:09 84 18 120/70 95 12/10/23 09:14 37.5 C 101 H 22 113/69 95 O2 Del Method 12/10/23 11:23 12/10/23 11:09 Room Air 12/10/23 09:14 Room Air Laboratory Results Abnormal lab results 12/10/23 Range/Units 10:23 WBC 14.76 H (4.8-10.8) K/ul Neut # (Auto) 12.54 H (1.40-6.50) K/uL Lymph # (Auto) 1.07 L (1.20-3.40) K/uL [place] # (Auto) 1.03 H (0.11-0.59) K/uL Sodium 132 L (136-145) mmol/L Glucose 113 H (70-99(Fasting)) mg/dl C-Reactive Protein 20.15 H (0-0.5) mg/dl Procalcitonin 2.73 H (0-0.5) ng/ml Diagnostic Findings Tibia/Fibula X-Ray 12/10/23 09:22 XR tibia fibula LT 2V HISTORY: 23 years-old Male swelling acute pain and swelling left lower leg COMPARISON: Tibia and fibula CT 05/25/2022 TECHNIQUE: 2 views of left tibia and fibula FINDINGS: [id number] soft tissue swelling. No acute fracture, dislocation, osseous erosion or opaque foreign body. IMPRESSION: Soft tissue swelling without acute osseous abnormality. ACT 112: Negative or not required by law. The above report was generated using voice recognition software. It may contain grammatical, syntax or spelling errors. Electronically signed by: Jagdeep Esposito M.D. 12/10/2023 10:47 AM Venous Doppler Study 12/10/23 09:22 LEFT LOWER EXTREMITY VENOUS DOPPLER HISTORY: Acute pain and swelling of the left lower leg swelling COMPARISON STUDY: 05/25/2022 FINDINGS: There is normal compressibility, flow, and augmentation within the left lower extremity deep venous system. Left inguinal chain lymph nodes measuring up to 1 cm in short axis are nonspecific. IMPRESSION: No DVT within the left lower extremity. ACT 112: Negative or not required by law. Electronically signed by: Jagdeep Esposito M.D. 12/10/2023 11:[address] 12/10/23 11:32 CT tib/fib LT w con HISTORY: 23 years-old Male swelling, hx of abscess acute pain and swelling of the left lower leg COMPARISON: CT 05/25/2022 TECHNIQUE: Multiple axial CT images of the left tibia and fibula were obtained with IV contrast. A dose lowering technique was used consistent with the principals of ALARA. FINDINGS: Tendons and ligaments are not well evaluated by CT technique. Moderate cutaneous thickening with subcutaneous edema of the lower leg. No drainable fluid collections. 4 cm focus of linear scarring noted within the area of the previously described abscess. No new abscess identified on today's study. The imaged vascular structures appear unremarkable. No foreign body is seen. Musculature is within normal limits. No subcutaneous gas. Lateral tilt of the patella which demonstrates mild marginal spurring.. Mild degenerative spurring of the calcaneus. Trace joint effusion of the knee. No acute fracture, dislocation or osseous erosion. No suspicious bone lesions. IMPRESSION: 1. Findings suggestive of cellulitis involving the lower leg without abscess. 2. No CT evidence of acute osteomyelitis. ACT 112: Negative or not required by law. The above report was generated using voice recognition software. It may contain grammatical, syntax or spelling errors. Electronically signed by: Jagdeep Esposito M.D. 12/10/2023 12:10 PM Code Status & VTE Plan Code Status Full code VTE Prophylaxis Plan VTE Prophylaxis will be ordered: Yes Supervising Physician Co-Signing Physician Notes I personally saw and examined the patient. I verified all flores points and agree with Dell Doe PA-C with the following exceptions and/or additions: 23 year old male presents to the ER with cellulitis starting yesterday with emesis the day before. Previous history of cellulitis in this leg with coag neg staph grown from I&D with abscess at that time. O/E HS RRR, no murmurs, Chest CTAB, Abdo SNT, LLE erythema from knee to ankle as per pictures above surrounding old incision scar which appears well healed A/P Sepsis / cellulitis - Although he meets for sepsis criteria he is well appearing therefore will not fully cover for coag neg staph and elect to see improvement with ceftriaxone alone initially. Antibiogram has coag neg staph at 47% effectiveness for penicillins therefore if not responding to ceftriaxone would assume it is this and cover with vancomycin. Lactate WNL. Blood cultures notably taken after initial antibiotics given. PG Care Time/CCT Total # of Minutes Spent Total Time Spent with Patient: Total time spent is greater than 50% in coordination of care (as documented) at patient's floor/unit and/or counseling patient: Coding [place] [address] INT INP/OBS CARE 2/55MIN Patient Type Established Medical Decision Making Moderate Complexity Diagnoses Sepsis A41.9 Cellulitis of left leg L03.116
[2023-12-10] MEDS ORDERED: MoRPHine SULFATE 2 MG/ML CARP IV PRN (12:36)
[2023-12-10] MEDS: SODIUM CHLORIDE 0.9% 250 ML IV ONE (13:26)
[2023-12-10] MEDS: SODIUM CHLORIDE 0.9% 1,000 ML IV ONE (13:26)
[2023-12-10] MEDS: ACETAMINOPHEN 325 MG TAB PO PRN (16:24)
[2023-12-10] MEDS: ENOXAPARIN INJ 40 MG/0.4 ML SYR SQ SCH (17:41)
[2023-12-10 18:52] LABS: Appearance Urine Clear (Clear); Bacteria Urine Automated None Seen (None Seen); Bilirubin Urine 1+ (Negative); Blood Urine Negative (Negative); Cast Urine Automated 0-2 /lpf (0-2); Color Urine Dark Yellow; Epithelial Cell Urine Auto 0-2 /hpf (0-2); Glucose Urine UA Negative (Negative); Ketones Urine Trace (Negative); Leukocyte Esterase Urine Negative (Negative); Nitrite Urine Negative (Negative); Protein Urine 1+ (Negative); Specific Gravity Urine > 1.045 (1.000-1.030); Urobilinogen Urine Positive (Negative); WBC Urine Automated 0-5 /hpf (0-5); pH Urine 6.5 (4.5-7.5)
[2023-12-10 19:10] LABS: Amphetamines+Metham, Urine Neg (Neg); Barbiturates, Urine Neg (Neg); Benzodiazepine, Urine Neg (Neg); Cocaine, Urine Neg (Neg); Fentanyl, Urine Neg (Neg); MDMA (Ecstacy), Urine Neg (Neg); Marijuana, Urine Neg (Neg); Methadone, Urine Neg (Neg); Opiate, Urine Neg (Neg); Phencyclidine, Urine Neg (Neg)
[2023-12-11 06:59] LABS: Basophils # (auto) 0.06 K/uL (0.00-0.20); Basophils % (auto) 0.6 %; Eosinophils # (auto) 0.04 K/uL (0.00-0.50); Eosinophils % (auto) 0.4 %; Hematocrit (blood only) 44.5 % (42.0-52.0); Hemoglobin 15.3 g/dl (14.0-18.0); Immature Granulocytes # (auto) 0.04 K/uL (0.01-0.20); Immature Granulocytes % (auto) 0.4 %; Lymphocytes # (auto) 1.23 K/uL (1.20-3.40); Lymphocytes % (auto) 12.7 %; Mean Corpuscular Hemoglobin 29.6 pg (25.0-34.0); Mean Corpuscular Hgb Conc 34.4 g/dL (32.0-36.0); Mean Corpuscular Volume 86.1 fL (80.0-100.0); Mean Platelet Volume 11.6 fL (9.4-12.4); Monocytes # (auto) 0.95 K/uL (0.11-0.59); Monocytes % (auto) 9.8 %; Neutrophils # (auto) 7.38 K/uL (1.40-6.50); Neutrophils % (auto) 76.1 %; Platelet Count 230 K/uL (130-400); Red Blood Count 5.17 M/uL (4.70-6.10)
[2023-12-11 07:16] LABS: Albumin Level 3.9 gm/dl (3.4-5.0); BUN Creatinine Ratio 13.6 (10-20); Bilirubin,Total 0.8 mg/dl (0.2-1.0); Creatinine Clr Calc Pharmacy 155.5 ml/min; Est GFR (African American) 140.3 ml/min; Est GFR (Non-African American) 121.1 ml/min; Estimated Average Glucose 108 mg/dl; Globulin 3.8 gm/dl (2.5-4.0); Hemoglobin A1C 5.4 % (4.5-5.6); Magnesium 1.8 mg/dl (1.7-2.4); Potassium 3.7 mmol/L (3.5-5.1); Total Protein 7.7 gm/dl (6.0-8.3)
[2023-12-11] MEDS: cefTRIAXone SODIUM 2,000 MG/50 ML BAG IV SCH (09:31)
--- NOTE | 2023-12-11 12:54 | Discharge Summary ---
Date of Service December 11, 2023 Admission HPI Per Admitting Provider Edwin is a 23-year-old male with a past medical history significant for morbid obesity, previous left calf cellulitis and abscess from ingrown toenail procedure status post drainage approximately 2 years ago who presented to the [facility] ED on 12/10/2023 with complaints of nausea/vomiting and left lower extremity swelling. He was noted to be tachycardic on arrival at 101 but otherwise stable. Labs were significant for leukocytosis of 14 with neutrophil predominance of 12, sodium of 132, CRP of 20 lipase within normal limits, and Pro-Naif of 2.73. Venous Doppler of the left lower extremity was negative for signs of DVT. The left hip/fib was read as soft tissue swelling without acute osseous abnormality. In CT of the left tib/fib with con was read as findings suggestive of cellulitis involving the lower leg without abscess. No CT evidence of acute osteomyelitis. Patient resting in bed in no acute distress at time of exam with his family bedside. States he had been in his normal state health until 12/08/2023 when he started develop nausea and nonbloody emesis. States that he started developed left lower extremity cellulitis on 12/09/2023. Associated with subjective fever/chills, pain. Denies paresthesias, chest pain, shortness of breath, abdominal pain, dysuria/hematuria, diarrhea, and recent trauma. Please for Dr. Mary's attestation for any changes to the treatment plan Admission Exam Per Admitting Provider Physical Exam: General: In no acute distress, stated age, morbidly obese, non-toxic appearing HEENT: Normocephalic, atraumatic, no scleral icterus, pupils around round, symmetrical, and reactive to light, moist mucus membranes, trachea midline, no thyromegaly Chest/Pulm: No respiratory distress, symmetrical chest expansion, clear breath sounds throughout Cardiac: RRR, no murmurs noted Abdomen: Negative for ascites and bruising, normoactive bowel sounds, soft, non- tender to palpation throughout Musculoskeletal: Symmetrical and without signs of acute trauma, upper and lower extremities with full ROM, no atrophy, spasticity, or flaccidity Extremities: Radial, dorsalis pedis, and posterior tibial pulses are intact and symmetrical, LLE with swelling compared to RLE Skin: Circumferential erythema and swelling of the left calf, erythema does not cross the left ankle or left knee, no fluctuance noted on palpation >No obvious sign of trauma or skin breakdown in the left LE Neuro: Alert and oriented to person, place, month, year, and president, no focal defects, no tremors noted Psych: No acute distress, calm and cooperative during the exam Principal Diagnosis LLE cellulitis Discharge Exam Constitutional WD/WN, vitals as above Respiratory normal respiratory effort, lungs clear to auscultation Cardiovascular RRR, no murmur, no edema Skin Circumferential, confluent erythema and swelling of the left calf, erythema does not cross the left ankle or left knee, no fluctuance noted on palpation. No obvious sign of trauma or skin breakdown in the left LE Psychiatric A+Ox3, euthymic affect Discharge Data Allergies Allergy/AdvReac Type Severity Reaction Status Date / Time No Known Drug Allergies Allergy Verified 12/10/23 11:24 Consultations 12/10/23 12:39 ED Decision to Admit Stat Ordered Studies Tibia/Fibula X-Ray 12/10/23 09:22 XR tibia fibula LT 2V HISTORY: 23 years-old Male swelling acute pain and swelling left lower leg COMPARISON: Tibia and fibula CT 05/25/2022 TECHNIQUE: 2 views of left tibia and fibula FINDINGS: [id number] soft tissue swelling. No acute fracture, dislocation, osseous erosion or opaque foreign body. IMPRESSION: Soft tissue swelling without acute osseous abnormality. ACT 112: Negative or not required by law. The above report was generated using voice recognition software. It may contain grammatical, syntax or spelling errors. Electronically signed by: Jagdeep Esposito M.D. 12/10/2023 10:47 AM Venous Doppler Study 12/10/23 09:22 LEFT LOWER EXTREMITY VENOUS DOPPLER HISTORY: Acute pain and swelling of the left lower leg swelling COMPARISON STUDY: 05/25/2022 FINDINGS: There is normal compressibility, flow, and augmentation within the left lower extremity deep venous system. Left inguinal chain lymph nodes measuring up to 1 cm in short axis are nonspecific. IMPRESSION: No DVT within the left lower extremity. ACT 112: Negative or not required by law. Electronically signed by: Jagdeep Esposito M.D. 12/10/2023 11:[address] 12/10/23 11:32 CT tib/fib LT w con HISTORY: 23 years-old Male swelling, hx of abscess acute pain and swelling of the left lower leg COMPARISON: CT 05/25/2022 TECHNIQUE: Multiple axial CT images of the left tibia and fibula were obtained with IV contrast. A dose lowering technique was used consistent with the principals of KALI. FINDINGS: Tendons and ligaments are not well evaluated by CT technique. Moderate cutaneous thickening with subcutaneous edema of the lower leg. No drainable fluid collections. 4 cm focus of linear scarring noted within the area of the previously described abscess. No new abscess identified on today's study. The imaged vascular structures appear unremarkable. No foreign body is seen. Musculature is within normal limits. No subcutaneous gas. Lateral tilt of the patella which demonstrates mild marginal spurring.. Mild degenerative spurring of the calcaneus. Trace joint effusion of the knee. No acute fracture, dislocation or osseous erosion. No suspicious bone lesions. IMPRESSION: 1. Findings suggestive of cellulitis involving the lower leg without abscess. 2. No CT evidence of acute osteomyelitis. ACT 112: Negative or not required by law. The above report was generated using voice recognition software. It may contain grammatical, syntax or spelling errors. Electronically signed by: Jagdeep Esposito M.D. 12/10/2023 12:10 PM 12/10/23 09:22 US venous doppler LE LT Stat 12/10/23 11:32 CT leg [CT tib/fib LT w con] Stat Hospital Course (1) Sepsis: (2) Cellulitis of left leg: Daphne Pineda is a 23-year-old male with a past medical history significant for morbid obesity, previous left calf cellulitis and abscess from ingrown toenail procedure status post drainage approximately 2 years ago who presented to the [facility] ED on 12/10/2023 with complaints of nausea/vomiting and left lower extremity swelling. Sepsis - Resolved: Met sepsis criteria on arrival due to tachycardia of 101, leukocytosis of 14, and source being left lower extremity cellulitis - AM WBC WNL, VSS and WNL - IV abx converted to PO abx at time of dc (see below) - Follow blood cultures in outpatient setting if cellulitis failing to resolve LLE Cellulitis: - WBC 14 on admission, leukocytosis resolved at time of discharge - CT without evidence of osteomyelitis, no evidence of abscess or free air - Patient afebrile, hemodynamically stable, VSS and WNL - Discharged with 5-day course of Keflex Total Time Total Time Spent Total Time Spent (In Minutes): <30 Discharge Plan Discharge Items Patient Disposition: Home - Self-Care Reason For Visit: SEPSIS, LLE CELLULITIS Discharge Diagnosis: LLE cellulitis Activity: Resume your previous activity Non-emergency contact: Primary Care Provider Call non-emergency contact if: you have any medication questions, your symptoms worsen and you have a fever Follow-up/Referrals: Charito Bui MD [Primary Care Provider] - Rita Miranda CRNP [Nurse Practitioner] - 12/15/23 1:00 pm Diet: Regular Addtl Attending Provider Instructions: You were admitted to the hospital due to cellulitis of your left leg and concern for sepsis. Upon discharge, we recommend completing a course of antibiotics (see below for instructions). Please follow up with your outpatient provider if not resolving to determine if this course of antibiotics needs to be extended. A discharge summary will be sent to your primary care physician to ensure continuity of care. Please bring this discharge summary with you to your next office appointment so that your provider can review it at that time. Medications: Your medication list has been reviewed and reconciled upon discharge to ensure accuracy and continuity of care. An updated list of all your medications is included with your hospital discharge paperwork. Please review this list closely and make note of any changes to your medications. New medications: - Keflex: Please take 1 tab three times daily for 5 days. Follow up appointments: - Make a follow up appointment with your PCP within the next week. It is very important that you follow up with them shortly after discharge from the hospital. - Keep all of your follow up appointments as already scheduled. If you cannot make an appointment, notify your provider. CONTACT YOUR PRIMARY CARE PROVIDER if you experience any of the following: - Difficulty following your treatment plan - Difficulty taking any of your medications CALL 911 OR GO TO THE EMERGENCY DEPARTMENT if you experience any of the following: - Sudden, severe abdominal pain or nausea/vomiting - Severe chest pain or chest pain that radiates to your jaw or arm - Sudden, severe shortness of breath or difficulty breathing Pending Studies at Discharge: No Stand-Alone Forms: My [employer], Smoking Cessation Medications and DC Order Prescriptions: New cephalexin 500 mg capsule 500 mg PO TID 5 Days Qty: 15 0RF Discharge Orders: Discharge Order (Routine); Ordered 12/11/23 Ordered By: Trell Orantes Admission Data Admit Date/Time: 12/10/23 12:35 Attending Provider: Alfred Shaw Admit Provider: Gregory Mary Primary Care Provider: Charito Bui Other Providers: Gregory Mary Other Interventions: Discharge Summary Assessment (RN) Last Done: 12/11/23 13:27 Supervising Physician Co-Signing Physician Notes I personally examined the patient and verified all flores points of history and exam, discussed case, and agree with decision making with Dr Orantes Leg feeling better. Feeling up to going home. Vitals noted, in general he is awake and alert pleasant no distress. HEENT normocephalic atraumatic mucous membranes moist. Breathing unlabored no accessory muscle use good effort. Skin Lower extremity resolving erythematous changesscar from prior incision noted. There are no areas of fluctuance just minimally tender there is no areas of maximal tenderness. Cellulitis with sepsis present on admissionimproving. Sepsis resolved. Safe/stable for home. Very unlikely to harbor resistant pathogens. Home on oral antibiotics. Outpatient follow-up. Otherwise as above Resident Activity Tracking Resident Involvement: Resident Care Provided Care Provided: Adult Hospital Medicine
--- NOTE | 2023-12-11 16:48 | Billing Data ---
Date of Service December 11, 2023 Coding Level of Care Code 32945 IN/OBS DISCH 30 MIN/LESS
== END 2023-12-11 13:50 | disposition home or self-care (01) | DRG 872 ==
LOC: ED 09:08 → 3E 12:35 → SUATTDRO 12:35 → 3E 15:35

== ENCOUNTER 2024-08-06 20:43 | Inpatient (IN) ==
[2024-08-06 21:28] LABS: Appearance Urine Clear (Clear); Bacteria Urine Automated None Seen (None Seen); Bilirubin Urine Negative (Negative); Blood Urine Negative (Negative); Cast Urine Automated 0-2 /lpf (0-2); Color Urine Yellow; Glucose Urine UA Negative (Negative); Ketones Urine Trace (Negative); Leukocyte Esterase Urine 1+ (Negative); Nitrite Urine Negative (Negative); Protein Urine Trace (Negative); RBC Urine Automated 0-2 /hpf (0-2); Specific Gravity Urine 1.025 (1.000-1.030); Urobilinogen Urine Negative (Negative); pH Urine 7.5 (4.5-7.5)
[2024-08-06 21:33] LABS: Hematocrit (blood only) 45.4 % (42.0-52.0); Hemoglobin 15.7 g/dl (14.0-18.0); Mean Corpuscular Hgb Conc 34.6 g/dL (32.0-36.0); Mean Corpuscular Volume 86.8 fL (80.0-100.0); Mean Platelet Volume 11.5 fL (9.4-12.4); Platelet Count 309 K/uL (130-400); RDW Coefficient of Variation 13.3 % (11.5-14.5); RDW Standard Deviation 42.1 fL (36.4-46.3); Red Blood Count 5.23 M/uL (4.70-6.10); White Blood Count 22.25 K/ul (4.8-10.8)
[2024-08-06 21:36] LABS: INR 1.1 (0.9-1.1); Partial Thromboplastin Time 28 Seconds (21-31)
--- NOTE | 2024-08-06 21:46 | Emergency Department Note ---
Impression & Plan Cellulitis of left leg, Sepsis ED Provider Note CHIEF COMPLAINT: Infection HISTORY OF PRESENTING ILLNESS: The patient is a pleasant 23-year-old male who arrives to the emergency department for evaluation of concern for an infection. He reports 2 years ago he had a staph infection in his left leg. He reports that he noticed redness to his left leg and pain. He states fevers, chills, nausea, vomiting, and diarrhea that also began today. REVIEW OF SYSTEMS: See HPI for pertinent positives and pertinent negatives. ALLERGIES: See below MEDICATIONS: See below PAST MEDICAL HISTORY: See below PHYSICAL EXAM: VITALS: Vitals are noted on the nurse's note and reviewed by myself. Vital signs stable. GENERAL: 23-year-old male, in no acute distress, nondiaphoretic, well-developed well-nourished. SKIN: Left lower extremity, erythema, slight edema and warmth present over the anterior tib-fib. HEAD: Normocephalic atraumatic. HEART: Regular rate and rhythm without murmurs gallops or rubs. LUNGS: Clear to auscultation bilaterally without wheezes, rales or rhonchi. No retractions or accessory muscle use. ABDOMEN: Positive bowel sounds x 4. Soft, nontender, without masses or organomegaly. Cantu sign negative. No guarding or rebound tenderness. MUSCULOSKELETAL: Full ROM, left ankle, left knee. Sensation intact to dull and sharp. DP pulse intact. NEURO: Patient was alert and oriented to person place and time. No focal neurological deficits. DIFFERENTIAL DIAGNOSIS: Cellulitis, abscess, MRSA infection, DVT, necrotizing fasciitis, dermatitis, drug eruption, allergic reaction, sepsis, as well as other pathologies. ED COURSE AND MEDICAL DECISION MAKING: HISTORY FROM INDEPENDENT HISTORIAN: Parents at bedside as secondary historian MEDICATIONS GIVEN: 2 L NSS bolus, 2 g IV cefepime, weight-based IV vancomycin MONITOR: Continuous security monitor: Order was placed for continuous security monitor. Patient was placed on the security monitor and continuous pulse ox. Patient was noted to be in normal sinus rhythm at an initial rate of 116 bpm per my interpretation. EKG: EKG was interpreted by myself as sinus tachycardia, with a rate of 112 bpm, with no ST elevation, or depression. Previous for comparison from May 2022 shows no significant change. INTERPRETATION OF LABS: I interpreted the labs with full lab results as below in the lab section of this note. Pertinent lab results discussed in the MDM section below. INTERPRETATION OF IMAGING: Imaging studies were interpreted by myself and read by radiology as per the imaging section of this note. CHRONIC MEDICAL/SOCIAL CONDITIONS AFFECTING CARE: History MRSA MDM SUMMARY: The patient is a pleasant, 23-year-old male who arrives to the emergency department for evaluation of the above-stated complaint. Sepsis orders were placed, with IV fluid resuscitation administered. Lab work shows leukocytosis 22.25, PT/INR, PTT within normal limits. CMP shows hypomagnesemia, 1.4, with no other concerning findings. Procalcitonin 4.18, troponin 3.4. Urinalysis 1+ leukocyte esterase, with 11-20 WBCs, and 3-5 epithelial cells, no bacteria, no nitrites. Upper respiratory viral panel negative. EKG interpreted as above. Chest x-ray per my interpretation shows no acute cardiopulmonary process. The patient was provided 2 L bolus of normal saline, 2 g IV cefepime, and weight-based vancomycin. X-ray imaging of the left tib-fib was obtained which per my interpretation shows no concerning findings. [facility] Florez from the [facility] hospitalist group agreed to accept the patient under his care. Please refer to his documentation for further patient workup and treatment. DIAGNOSIS: Cellulitis, sepsis The chart was completed utilizing [employer] Speech voice recognition software. Grammatical errors, random word insertions, pronoun errors, and incomplete sentences are an occasional consequence of this system due to software limitations, ambient noise, and hardware issues. Any formal questions or concerns about the content, text, or information contained within the body of this dictation should be directly addressed to the provider for clarification. TREATMENT PLAN/DISCHARGE INSTRUCTIONS: [] Past Med/Surg History Problem List (Updated 08/07/24 @ 04:07 by JOSUE Willams) Sepsis (Acute) Cellulitis of left leg (Acute) History of incision and drainage 05/2022 (Daryn) Left leg abscess Paronychia due to ingrown nail Ingrown toenail of both feet Abnormal thyroid function test (Acute) Abov-bh-wzsc spots (Acute) Medical History Elevated CK Abscess of left leg Elevated LFTs Acute pharyngitis, unspecified Family History Mother No problems noted. Father No problems noted. Social History Smoking Status: Never smoker Second Hand Exposure: No; Do You Dip or Chew Tobacco: No; Hx Alcohol Use: Yes Alcohol type: hard liquor Hx Substance Use: No Preferred Language: Yi Communication Ability: Effective Printing Table Hand Required: No Beliefs That Will Affect Care: None Current Living Situation: Parent current occupational status: employed Feels Safe at Home: Yes Safety Concerns: Feels Safe At This Time Childhood Exposure to Second-Hand Smoke: No Diet: regular caffeine: Yes Dental Care, Regularly: No Physical Activity Frequency: 3-4 Times per Week Seatbelt Use: always Sunscreen Use: No Assistive Devices: None Allergies Allergies Allergy/AdvReac Type Severity Reaction Status Date / Time No Known Allergies Allergy Verified 08/06/24 22:38 Home Meds Home Medications Medication Instructions Recorded Confirmed No Known Home Medications 08/06/24 08/06/24 Results & Data (ED) Vital Signs Vital Signs - 24 hr 08/06/24 20:46 08/06/24 21:26 08/06/24 21:28 Temperature 36.9 C Temperature Source Oral Pulse Rate 116 H 111 H Pulse Rate [Right Finger] 111 H Pulse Rate from SpO2 Sensor Pulse Rhythm [Right Finger] Regular Pulse Strength [Right Finger] Normal Respiratory Rate 18 33 H Respiratory Effort / Characteristics Non-Labored Spontaneous Non-Labored Respiratory Depth Normal Normal Respiratory Pattern Regular Regular Blood Pressure 99/58 L Blood Pressure [Right Arm] 100/79 Blood Pressure Mean 71 Blood Pressure Mean [Right Arm] 86 Blood Pressure Position Sitting Blood Pressure Position [Right Arm] Lying Pulse Oximetry 94 94 Oxygen Delivery Method Room Air Room Air Sepsis Recent Fever Within 48 Hours Yes Sepsis New/Unexplained Change in Mental Status N/A Sepsis Action Taken by Nursing No Action Required 08/06/24 23:09 Temperature Temperature Source Pulse Rate 109 H Pulse Rate [Right Finger] Pulse Rate from SpO2 Sensor 109 H Pulse Rhythm [Right Finger] Pulse Strength [Right Finger] Respiratory Rate 14 Respiratory Effort / Characteristics Respiratory Depth Respiratory Pattern Blood Pressure 120/80 Blood Pressure [Right Arm] Blood Pressure Mean 87 Blood Pressure Mean [Right Arm] Blood Pressure Position Blood Pressure Position [Right Arm] Pulse Oximetry 98 Oxygen Delivery Method Room Air Sepsis Recent Fever Within 48 Hours Sepsis New/Unexplained Change in Mental Status Sepsis Action Taken by Skilled Nursing Medications Current Medication List: was personally reviewed by me Laboratory Data Attestation: I reviewed the patient's lab results. 08/06/24 20:55 08/06/24 20:55 Lab Results 08/06/24 08/06/24 Range/Units 20:55 21:20 WBC 22.25 H (4.8-10.8) K/ul RBC 5.23 (4.70-6.10) M/uL Hgb 15.7 (14.0-18.0) g/dl Hct 45.4 (42.0-52.0) % MCV 86.8 (80.0-100.0) fL MCH 30.0 (25.0-34.0) pg MCHC 34.6 (32.0-36.0) g/dL RDW Std Deviation 42.1 (36.4-46.3) fL RDW Coeff of Luz 13.3 (11.5-14.5) % Plt Count 309 (130-400) K/uL MPV 11.5 (9.4-12.4) fL Immature Gran % (Auto) 0.8 % Neut % (Auto) 91.3 % Lymph % (Auto) 3.1 % Floyd % (Auto) 4.4 % Eos % (Auto) 0.0 % Baso % (Auto) 0.4 % Neut # (Auto) 20.33 H (1.40-6.50) K/uL Lymph # (Auto) 0.68 L (1.20-3.40) K/uL Floyd # (Auto) 0.99 H (0.11-0.59) K/uL Eos # (Auto) 0.00 (0.00-0.50) K/uL Baso # (Auto) 0.08 (0.00-0.20) K/uL Immature Gran # (Auto) 0.17 (0.01-0.20) K/uL PT 12.0 (9.0-12.0) Seconds INR 1.1 (0.9-1.1) APTT 28 (21-31) Seconds PTT Ratio 1.0 Sodium 137 (136-145) mmol/L Potassium 3.9 (3.5-5.1) mmol/L Chloride 104 (98-107) mmol/L Carbon Dioxide 25 (21-32) mmol/L Anion Gap 8 (3-11) BUN 14 (6-23) mg/dl Creatinine 1.10 (0.6-1.4) mg/dl Est Cr Clr Drug Dosing 154.2 ml/min eGFR 96.74 BUN/Creatinine Ratio 12.7 (10-20) Glucose 107 H (70-99(Fasting)) mg/dl Lactate 1.3 (0.4-2.0) mmol/L Calcium 9.4 (8.6-10.3) mg/dl Magnesium 1.4 L (1.7-2.4) mg/dl Total Bilirubin 1.0 (0.2-1.0) mg/dl AST 40 H (13-39) U/L ALT 44 (7-52) U/L Alkaline Phosphatase 76 (34-104) U/L Troponin I High Sens 3.4 (0-20) pg/ml Total Protein 7.7 (6.0-8.3) gm/dl Albumin 4.3 (3.4-5.0) gm/dl Globulin 3.4 (2.5-4.0) gm/dl Albumin/Globulin Ratio 1.3 (0.9-2) Procalcitonin 4.18 H (0-0.5) ng/ml Urine Color Yellow Urine Appearance Clear (Clear) Urine pH 7.5 (4.5-7.5) Ur Specific [place] 1.025 (1.000-1.030) Urine Protein Trace H (Negative) Urine Glucose (UA) Negative (Negative) Urine Ketones Trace H (Negative) Urine Blood Negative (Negative) Urine Nitrite Negative (Negative) Urine Bilirubin Negative (Negative) Urine Urobilinogen Negative (Negative) Ur Leukocyte Esterase 1+ H (Negative) Urine WBC (Auto) 11-20 H (0-5) /hpf Urine RBC (Auto) 0-2 (0-2) /hpf U Hyaline Cast (Auto) 0-2 (0-2) /lpf U Epithel Cells (Auto) 3-5 H (0-2) /hpf Urine Bacteria (Auto) None Seen (None Seen) IgG 1585.7 (635-1741) mg/dl IgA 247.3 (70-400) mg/dl IgM 65.7 (45-281) mg/dl SARS-CoV-2 (PCR) NEGATIVE (Negative) Influenza Type A (PCR) Negative (Neg) Influenza Type B (PCR) Negative (Neg) RSV (RT-PCR) Negative (Neg) Administered Medications Acetaminophen (Acetaminophen 325 Mg Tab) 650 mg PO Q4H PRN PRN Reason: Pain or Fever Stop: 09/06/24 02:20 Last Admin: 08/07/24 02:26 Dose: 650 mg Documented By: FILIPE Sodium Chloride (Nss) 1,000 mls @ 125 mls/hr IV .Q8H ALEYDA Stop: 08/07/24 08:29 Last Admin: 08/07/24 01:05 Dose: 125 mls/hr Documented By: SANDY Discontinued Medications Sodium Chloride (Nss) 1,000 mls @ 999 mls/hr IV .Q1H1M ONE Stop: 08/06/24 22:47 Last Infusion: 08/06/24 23:00 Dose: Infused Documented By: Admin: 08/06/24 22:28 Dose: 999 mls/hr Documented By: Infusion: 08/06/24 22:27 Dose: Infused Documented By: Admin: 08/06/24 22:07 Dose: 999 mls/hr Documented By: ANDRES Sodium Chloride (Nss) 1,000 mls @ 999 mls/hr IV .Q1H1M ONE Stop: 08/06/24 23:15 Last Infusion: 08/06/24 23:29 Dose: Infused Documented By: Admin: 08/06/24 22:28 Dose: 999 mls/hr Documented By: ANDRES Cefepime HCl (Maxipime 2000mg) 2,000 mg in 20 mls @ 5 mls/min IV NOW STA; Protocol Stop: 08/06/24 22:21 Last Admin: 08/06/24 22:28 Dose: 5 mls/min Documented By: ANDRES Vancomycin HCl 2,750 mg/ (Sodium Chloride) 555 mls @ 200 mls/hr IV NOW ONE Stop: 08/07/24 01:04 Last Infusion: 08/07/24 01:50 Dose: Infused Documented By: Admin: 08/06/24 23:09 Dose: 200 mls/hr Documented By: DM Imaging Data Attestation: I personally reviewed and interpreted this imaging study as follows: Radiologist's Impression: Chest X-Ray 08/06/24 20:53 Exam(s): XR CXR 1 VIEW EXAM: XR Chest, 1 View CLINICAL HISTORY: Reason for exam: Sepsis. TECHNIQUE: Frontal view of the chest. COMPARISON: No relevant prior studies available. FINDINGS: Lungs: No consolidation. Pleural space: No pleural effusion or pneumothorax. Heart: No cardiomegaly or pulmonary vascular congestion. Bones/joints: No acute fracture. No dislocation. IMPRESSION: No evidence of acute cardiopulmonary disease. Electronically signed by: Damaris Gandhi M.D. 08/06/24 22:51 PM Tibia/Fibula X-Ray 08/06/24 22:15 Exam(s): XR LEFT TIB/FIB, 2 views EXAM: XR Left Tibia and Fibula, 2 Views CLINICAL HISTORY: Reason for exam: infection. TECHNIQUE: Frontal and lateral views of the left tibia and fibula. COMPARISON: 12/10/23 FINDINGS: Bones/joints: No acute fracture. No dislocation. Soft tissues: Unremarkable. No radiopaque foreign body. IMPRESSION: No acute osseous findings. Electronically signed by: Damaris Gandhi M.D. 08/06/24 23:14 PM Venous Doppler Study 08/07/24 00:15 EXAM: US venous doppler LE LT CLINICAL HISTORY: edema, pain, warmth LLE TECHNIQUE: Ultrasound examination of left lower extremity veins was performed in real time and duplex. One or more of the following were performed- spectral analysis, resistive index, waveform analysis, and pulsed Doppler. COMPARISON: None. FINDINGS: Examination is limited by increased body habitus as per tech sheet. Normal phasic, non-pulsatile and spontaneous flow is noted in left common femoral, superficial femoral, popliteal, posterior tibial, anterior tibial and peroneal veins. Visualized veins of left lower extremity demonstrate normal compressibility. No sonographic evidence of acute deep vein thrombosis (DVT) is detected in the visualized veins of lower extremity. Compression and Augmentation: All evaluated veins compress fully with applied transducer pressure. Augmentation of venous flow is noted with distal compression. Additional Findings: No evidence of intraluminal thrombus. Few prominent lymph nodes are identified in left inguinal region/groin largest is measures 3.7 x 1.3 x 3.3 cm IMPRESSION: 1. No sonographic evidence of acute DVT dwas etected at the time of examination. 2. Few prominent lymph nodes are identified in the left inguinal region/groin. Disclaimer: DVT could be missed early in the disease when clot burden is minimal. For patients with moderate and high pretest probability of DVT and negative ultrasound, the [place] [employer] clinical guidelines recommend testing with a D-dimer assay or repeat ultrasound in 5-7 days. If symptoms worsen, the Society of radiologists in ultrasound recommends repeating ultrasound even earlier. Electronically signed by Alberto Malhotra 08-07-2024 03:09 AM Discharge Plan Visit Data Chief Complaint: Infection Stated Complaint: POSSIBLE STAPH INFECTION ED Provider: Trell Ma ED Midlevel Provider: Johnna Ye Discharge Problem: Cellulitis of left leg, Sepsis Patient Disposition: Admitted As Inpatient Discharge Instructions Interventions: ED Discharge Assessment Last Done: 08/07/24 01:22
[2024-08-06 21:53] LABS: Albumin Level 4.3 gm/dl (3.4-5.0); Calcium 9.4 mg/dl (8.6-10.3); Magnesium 1.4 mg/dl (1.7-2.4); Potassium 3.9 mmol/L (3.5-5.1)
[2024-08-06 21:56] LABS: Troponin I High Sensitivity 3.4 pg/ml (0-20)
[2024-08-06 21:57] LABS: Basophils # (auto) 0.08 K/uL (0.00-0.20); Basophils % (auto) 0.4 %; Immature Granulocytes # (auto) 0.17 K/uL (0.01-0.20); Immature Granulocytes % (auto) 0.8 %; Lymphocytes # (auto) 0.68 K/uL (1.20-3.40); Lymphocytes % (auto) 3.1 %; Monocytes # (auto) 0.99 K/uL (0.11-0.59); Monocytes % (auto) 4.4 %; Neutrophils # (auto) 20.33 K/uL (1.40-6.50); Neutrophils % (auto) 91.3 %
[2024-08-06 21:59] LABS: Albumin Globulin Ratio 1.3 (0.9-2); BUN Creatinine Ratio 12.7 (10-20); Creatinine Clr Calc Pharmacy 154.2 ml/min; Globulin 3.4 gm/dl (2.5-4.0); Total Protein 7.7 gm/dl (6.0-8.3)
[2024-08-06 22:00] LABS: Influenza A virus by PCR Negative (Neg); Influenza B virus by PCR Negative (Neg); RSV by PCR Negative (Neg); SARS CoV2 RNA(COVID-19) Ceph NEGATIVE (Negative)
[2024-08-06] MEDS: SODIUM CHLORIDE 0.9% 1,000 ML IV ONE ×2 (22:07→22:28)
[2024-08-06] MEDS ORDERED: VANCOMYCIN CONSULT ACTIVE PRN (22:18)
[2024-08-06] MEDS: CEFEPIME 2000MG 2,000 MG/20 ML SYR IV STA (22:28)
--- NOTE | 2024-08-06 22:53 | XRay Report ---
Exam(s): XR CXR 1 VIEW EXAM: XR Chest, 1 View CLINICAL HISTORY: Reason for exam: Sepsis. TECHNIQUE: Frontal view of the chest. COMPARISON: No relevant prior studies available. FINDINGS: Lungs: No consolidation. Pleural space: No pleural effusion or pneumothorax. Heart: No cardiomegaly or pulmonary vascular congestion. Bones/joints: No acute fracture. No dislocation. IMPRESSION: No evidence of acute cardiopulmonary disease. Electronically signed by: Damaris Gandhi M.D. 08/06/24 22:51 PM
[2024-08-06] MEDS: VANCOMYCIN HCL 2,750 MG in SODIUM CHLORIDE 0.9% 500 ML IV ONE (23:09)
--- NOTE | 2024-08-06 23:15 | XRay Report ---
Exam(s): XR LEFT TIB/FIB, 2 views EXAM: XR Left Tibia and Fibula, 2 Views CLINICAL HISTORY: Reason for exam: infection. TECHNIQUE: Frontal and lateral views of the left tibia and fibula. COMPARISON: 12/10/23 FINDINGS: Bones/joints: No acute fracture. No dislocation. Soft tissues: Unremarkable. No radiopaque foreign body. IMPRESSION: No acute osseous findings. Electronically signed by: Damaris Gandhi M.D. 08/06/24 23:14 PM
--- NOTE | 2024-08-07 00:25 | History & Physical Report ---
Date of Service August 07, 2024 Assessment & Plan (1) Cellulitis of left leg: (2) Sepsis: (3) History of incision and drainage: (4) Dehydration: Plan The patient is a 23-year-old male with a past medical history including recurrent cellulitis of left leg, paronychia and ingrown nail, attention deficit disorder without hyperactivity, morbid obesity with BMI greater than 50 and caf au lait spots. The patient reports that he woke up earlier in the morning, and noted that he was having symptoms of redness, warmth and pain, with increasing swelling as the day progressed in his left lower extremity. Upon presentation to the emergency department, he noted that he also had some nausea, which did improve with IV fluids.The patient presents to the emergency department due to development of progressively increasing swelling, redness and warmth of left lower extremity, looking to be a recurrence of staph infection that he had noted initially in his left leg during admission from 05/25-05/29/2022. During that admission, patient did have an I&D, which ultimately grew coag negative staph. Recurrence of infection requiring hospitalization occurred from 12/09-12/11/2023. Patient has developed a recurrence of infection in the same area as previous I&D again today. We did order a venous Doppler, which was negative for DVT, and also did not show any drainable fluid collection. From the ED the patient did receive vancomycin IV, cefepime 2 g IV, and normal saline 1 L IV boluses x 2. He was then referred for evaluation for admission to the [facility]. #Sepsis due to recurrent cellulitis of left lower extremity- History of abscess requiring hospitalization with incision and drainage from 05/25-05/29/2022. Cultures at that time grew coag negative staph Recurrent hospitalization from 12/09-12/11/2023. Venous Doppler negative for DVT this evening, and did not show any drainable fluid collection. Continue vancomycin IV, and cefepime IV begun in the ED Patient did develop hypotension, will blood pressure at his lowest 99/58, and improved to 120/80 with IV fluids. Received a total of 2 L normal saline bolus from the ED Continue rehydration with normal saline plus KCl 20 mEq at 125 mL/h x 1 L Order immunoglobulin assays, IgG, IgA and IgM due to third instance of unprovoked cellulitis of left lower extremity Of note, COVID, flu and RSV testing negative, urinalysis negative Hypomagnesemia- Magnesium 1.4 on admission Give magnesium sulfate 2 g IV, recheck laboratories in the following a.m. History of Present Illness Chief Complaint: The patient presents to the emergency department due to development of progressively increasing swelling, redness and warmth of left lower extremity, looking to be a recurrence of staph infection that he had noted initially in and his left leg during admission from 05/25-05/29/2022. During that admission, patient did have an I&D, which ultimately grew coag negative staph. Recurrence of infection occurred from 12/09-12/11/2023. Patient has developed a recurrence of infection in the same area as previous I&D. We did order a venous Doppler, which was negative for DVT, and did not show any drainable fluid collection. From the ED the patient did receive vancomycin IV, cefepime 2 g IV, and normal saline 1 L IV boluses x 2. Primary Care Provider: JOSUE Hardwick The patient is a 23-year-old male with a past medical history including recurrent cellulitis of left leg, paronychia and ingrown nail, attention deficit disorder without hyperactivity, morbid obesity with BMI greater than 50 and caf au lait spots. The patient reports that he woke up earlier in the morning, and noted that he was having symptoms of redness, warmth and pain, with increasing swelling as the day progressed in his left lower extremity. Upon presentation to the emergency department, he noted that he also had some nausea, which did improve with IV fluids.The patient presents to the emergency department due to development of progressively increasing swelling, redness and warmth of left lower extremity, looking to be a recurrence of staph infection that he had noted initially in his left leg during admission from 05/25-05/29/2022. During that admission, patient did have an I&D, which ultimately grew coag negative staph. Recurrence of infection requiring hospitalization occurred from 12/09-12/11/2023. Patient has developed a recurrence of infection in the same area as previous I&D again today. We did order a venous Doppler, which was negative for DVT, and also did not show any drainable fluid collection. From the ED the patient did receive vancomycin IV, cefepime 2 g IV, and normal saline 1 L IV boluses x 2. He was then referred for evaluation for admission to the [facility]. Allergies Allergy/AdvReac Type Severity Reaction Status Date / Time No Known Allergies Allergy Verified 08/06/24 22:38 Home Medications Medication Instructions Recorded Confirmed Type No Known Home Medications 08/06/24 08/06/24 History Past Med/Surg History Problem List (Updated 08/07/24 @ 05:24 by Wesly Florez MD) Dehydration Sepsis (Acute) Cellulitis of left leg (Acute) History of incision and drainage 05/2022 (Daryn) Left leg abscess Paronychia due to ingrown nail Ingrown toenail of both feet Abnormal thyroid function test (Acute) Wopn-cu-iuwy spots (Acute) Medical History Elevated CK Abscess of left leg Elevated LFTs Acute pharyngitis, unspecified Family History Mother No problems noted. Father No problems noted. Social History Smoking Status: Never smoker Second Hand Exposure: No; Do You Dip or Chew Tobacco: No; Hx Alcohol Use: Yes Alcohol type: hard liquor Hx Substance Use: No Preferred Language: Amharic Communication Ability: Effective Electric Wirer Required: No Beliefs That Will Affect Care: None Current Living Situation: Parent current occupational status: employed Feels Safe at Home: Yes Safety Concerns: Feels Safe At This Time Childhood Exposure to Second-Hand Smoke: No Diet: regular caffeine: Yes Dental Care, Regularly: No Physical Activity Frequency: 3-4 Times per Week Seatbelt Use: always Sunscreen Use: No Assistive Devices: None Review of Systems Review of Systems: The patient denies chest pain, palpitations, shortness of breath, dyspnea on exertion, cough, sore throat, fevers, chills, sweats, vomiting, diarrhea , c onstipation, abdominal pain, pelvic pain, blood in urine or stool, dysuria, urinary frequency or urgency, lightheadedness, dizziness, headache, memory loss, loss of consciousness, imbalance, focal or generalized weakness, numbness or tingling in arms or right leg, generalized arthralgias or myalgias, back or neck pain, or night sweats. The review of systems is otherwise negative other than for that already noted above, and at least 10 systems have been reviewed. Physical Exam Physical Exam: The patient is awake, alert and oriented 3, well developed and well nourished, normocephalic and atraumatic, lying in bed and in no acute distress. HEENT--PERRL, EOMI, mucous membranes and oropharynx mildly dry. Neck--supple. No JVD. No bruits. Thyroid normal, trachea midline, no adenopathy. Heart--normal S1 and S2. No murmurs, rubs or gallops. Lungs--clear bilaterally, no respiratory distress, no accessory muscle use. Abdomen--normal bowel sounds and soft. Nontender. Nondistended, no hernias or masses, no organomegaly. Extremities--right lower extremity normal. Left lower extremity with moderate erythema, warmth, edema and central induration underneath previous incision. Dermatologic--normal except for left lower extremity Neurologic--cranial nerves II through XII grossly intact. Rheumatologic--normal range of motion. Psychiatric--normal affect. Results & Data Results & Data Vital Signs (Past 12 Hours) Vital Signs Temp Pulse Pulse Resp BP BP Pulse Ox 08/06/24 23:09 109 H 14 120/80 98 08/06/24 21:28 111 H 33 H 100/79 94 08/06/24 21:26 111 H 08/06/24 20:46 36.9 C 116 H 18 99/58 L 94 O2 Del Method 08/06/24 23:09 Room Air 08/06/24 21:28 Room Air 08/06/24 21:26 08/06/24 20:46 Room Air Laboratory Results Laboratory Results WBC 22.25 K/ul (4.8-10.8) H 08/06/24 20:55 RBC 5.23 M/uL (4.70-6.10) 08/06/24 20:55 Hgb 15.7 g/dl (14.0-18.0) 08/06/24 20:55 Hct 45.4 % (42.0-52.0) 08/06/24 20:55 MCV 86.8 fL (80.0-100.0) 08/06/24 20:55 MCH 30.0 pg (25.0-34.0) 08/06/24 20:55 MCHC 34.6 g/dL (32.0-36.0) 08/06/24 20:55 RDW Std Deviation 42.1 fL (36.4-46.3) 08/06/24 20:55 RDW Coeff of Luz 13.3 % (11.5-14.5) 08/06/24 20: Plt Count 309 K/uL (130-400) 08/06/24 20:55 MPV 11.5 fL (9.4-12.4) 08/06/24 20:55 Immature Gran % (Auto) 0.8 % 08/06/24 20:55 Neut % (Auto) 91.3 % 08/06/24 20:55 Lymph % (Auto) 3.1 % 08/06/24 20:55 Delta % (Auto) 4.4 % 08/06/24 20:55 Eos % (Auto) 0.0 % 08/06/24 20:55 Baso % (Auto) 0.4 % 08/06/24 20:55 Neut # (Auto) 20.33 K/uL (1.40-6.50) H 08/06/24 20:55 Lymph # (Auto) 0.68 K/uL (1.20-3.40) L 08/06/24 20:55 Delta # (Auto) 0.99 K/uL (0.11-0.59) H 08/06/24 20:55 Eos # (Auto) 0.00 K/uL (0.00-0.50) 08/06/24 20:55 Baso # (Auto) 0.08 K/uL (0.00-0.20) 08/06/24 20:55 Immature Gran # (Auto) 0.17 K/uL (0.01-0.20) 08/06/24 20:55 PT 12.0 Seconds (9.0-12.0) 08/06/24 20:55 INR 1.1 (0.9-1.1) 08/06/24 20:55 APTT 28 Seconds (21-31) 08/06/24 20:55 PTT Ratio 1.0 08/06/24 20:55 Sodium 137 mmol/L (136-145) 08/06/24 20:55 Potassium 3.9 mmol/L (3.5-5.1) 08/06/24 20:55 Chloride 104 mmol/L (98-107) 08/06/24 20:55 Carbon Dioxide 25 mmol/L (21-32) 08/06/24 20:55 Anion Gap 8 (3-11) 08/06/24 20:55 BUN 14 mg/dl (6-23) 08/06/24 20:55 Creatinine 1.10 mg/dl (0.6-1.4) 08/06/24 20:55 Est Cr Clr Drug Dosing 154.2 ml/min 08/06/24 20:55 eGFR 96.74 08/06/24 20:55 BUN/Creatinine Ratio 12.7 (10-20) 08/06/24 20:55 Glucose 107 mg/dl (70-99(Fasting)) H 08/06/24 20:55 Lactate 1.3 mmol/L (0.4-2.0) 08/06/24 20:55 Calcium 9.4 mg/dl (8.6-10.3) 08/06/24 20:55 Magnesium 1.4 mg/dl (1.7-2.4) L 08/06/24 20:55 Total Bilirubin 1.0 mg/dl (0.2-1.0) 08/06/24 20:55 AST 40 U/L (13-39) H 08/06/24 20:55 ALT 44 U/L (7-52) 08/06/24 20:55 Alkaline Phosphatase 76 U/L (34-104) 08/06/24 20:55 Troponin I High Sens 3.4 pg/ml (0-20) 08/06/24 20:55 Total Protein 7.7 gm/dl (6.0-8.3) 08/06/24 20:55 Albumin 4.3 gm/dl (3.4-5.0) 08/06/24 20:55 Globulin 3.4 gm/dl (2.5-4.0) 08/06/24 20:55 Albumin/Globulin Ratio 1.3 (0.9-2) 08/06/24 20:55 Procalcitonin 4.18 ng/ml (0-0.5) H 08/06/24 20:55 Urine Color Yellow 08/06/24 21:20 Urine Appearance Clear (Clear) 08/06/24 21:20 Urine pH 7.5 (4.5-7.5) 08/06/24 21:20 Ur Specific [place] 1.025 (1.000-1.030) 08/06/24 21:20 Urine Protein Trace (Negative) H 08/06/24 21:20 Urine Glucose (UA) Negative (Negative) 08/06/24 21:20 Urine Ketones Trace (Negative) H 08/06/24 21:20 Urine Blood Negative (Negative) 08/06/24 21:20 Urine Nitrite Negative (Negative) 08/06/24 21:20 Urine Bilirubin Negative (Negative) 08/06/24 21:20 Urine Urobilinogen Negative (Negative) 08/06/24 21:20 Ur Leukocyte Esterase 1+ (Negative) H 08/06/24 21:20 Urine WBC (Auto) 11-20 /hpf (0-5) H 08/06/24 21:20 Urine RBC (Auto) 0-2 /hpf (0-2) 08/06/24 21:20 U Hyaline Cast (Auto) 0-2 /lpf (0-2) 08/06/24 21:20 U Epithel Cells (Auto) 3-5 /hpf (0-2) H 08/06/24 21:20 Urine Bacteria (Auto) None Seen (None Seen) 08/06/24 21:20 IgG 1585.7 mg/dl (635-1741) 08/06/24 20:55 IgA 247.3 mg/dl (70-400) 08/06/24 20:55 IgM 65.7 mg/dl (45-281) 08/06/24 20:55 SARS-CoV-2 (PCR) NEGATIVE (Negative) 08/06/24 20:55 Influenza Type A (PCR) Negative (Neg) 08/06/24 20:55 Influenza Type B (PCR) Negative (Neg) 08/06/24 20:55 RSV (RT-PCR) Negative (Neg) 08/06/24 20:55 Impressions Chest X-Ray 08/06/24 20:53 Exam(s): XR CXR 1 VIEW EXAM: XR Chest, 1 View CLINICAL HISTORY: Reason for exam: Sepsis. TECHNIQUE: Frontal view of the chest. COMPARISON: No relevant prior studies available. FINDINGS: Lungs: No consolidation. Pleural space: No pleural effusion or pneumothorax. Heart: No cardiomegaly or pulmonary vascular congestion. Bones/joints: No acute fracture. No dislocation. IMPRESSION: No evidence of acute cardiopulmonary disease. Electronically signed by: Damaris Gandhi M.D. 08/06/24 22:51 PM Tibia/Fibula X-Ray 08/06/24 22:15 Exam(s): XR LEFT TIB/FIB, 2 views EXAM: XR Left Tibia and Fibula, 2 Views CLINICAL HISTORY: Reason for exam: infection. TECHNIQUE: Frontal and lateral views of the left tibia and fibula. COMPARISON: 12/10/23 FINDINGS: Bones/joints: No acute fracture. No dislocation. Soft tissues: Unremarkable. No radiopaque foreign body. IMPRESSION: No acute osseous findings. Electronically signed by: Damaris Gandhi M.D. 08/06/24 23:14 PM Venous Doppler Study 08/07/24 00:15 EXAM: US venous doppler LE LT CLINICAL HISTORY: edema, pain, warmth LLE TECHNIQUE: Ultrasound examination of left lower extremity veins was performed in real time and duplex. One or more of the following were performed- spectral analysis, resistive index, waveform analysis, and pulsed Doppler. COMPARISON: None. FINDINGS: Examination is limited by increased body habitus as per tech sheet. Normal phasic, non-pulsatile and spontaneous flow is noted in left common femoral, superficial femoral, popliteal, posterior tibial, anterior tibial and peroneal veins. Visualized veins of left lower extremity demonstrate normal compressibility. No sonographic evidence of acute deep vein thrombosis (DVT) is detected in the visualized veins of lower extremity. Compression and Augmentation: All evaluated veins compress fully with applied transducer pressure. Augmentation of venous flow is noted with distal compression. Additional Findings: No evidence of intraluminal thrombus. Few prominent lymph nodes are identified in left inguinal region/groin largest is measures 3.7 x 1.3 x 3.3 cm IMPRESSION: 1. No sonographic evidence of acute DVT dwas etected at the time of examination. 2. Few prominent lymph nodes are identified in the left inguinal region/groin. Disclaimer: DVT could be missed early in the disease when clot burden is minimal. For patients with moderate and high pretest probability of DVT and negative ultrasound, the [employer] clinical guidelines recommend testing with a D-dimer assay or repeat ultrasound in 5-7 days. If symptoms worsen, the Society of radiologists in ultrasound recommends repeating ultrasound even earlier. Electronically signed by Alberto Malhotra 08-07-2024 03:09 AM Code Status & VTE Plan Code Status Full code VTE Prophylaxis Plan VTE Prophylaxis will be ordered: Yes PG Care Time/CCT Total # of Minutes Spent Total Time Spent with Patient: Total time spent is greater than 50% in coordination of care (as documented) at patient's floor/unit and/or counseling patient: Coding Level of Care Code 10833 INT INP/OBS CARE 3/75MIN Diagnoses Cellulitis of left leg L03.116 Sepsis A41.9 History of incision and drainage Z98.890 Dehydration E86.0
[2024-08-07 00:40] LABS: Immunoglobulin A 247.3 mg/dl (70-400); Immunoglobulin M 65.7 mg/dl (45-281)
[2024-08-07] MEDS: SODIUM CHLORIDE 0.9% 1,000 ML IV SCH (01:05)
[2024-08-07] MEDS ORDERED: VANCOMYCIN CONSULT ACTIVE PRN (02:21)
[2024-08-07] MEDS ORDERED: ONDANSETRON INJ 2 MG/ML 2 ML VIAL IV PRN (02:21)
[2024-08-07] MEDS: ACETAMINOPHEN 325 MG TAB PO PRN (02:26)
--- NOTE | 2024-08-07 03:09 | Ultrasound Report ---
EXAM: US venous doppler LE LT CLINICAL HISTORY: edema, pain, warmth LLE TECHNIQUE: Ultrasound examination of left lower extremity veins was performed in real time and duplex. One or more of the following were performed- spectral analysis, resistive index, waveform analysis, and pulsed Doppler. COMPARISON: None. FINDINGS: Examination is limited by increased body habitus as per tech sheet. Normal phasic, non-pulsatile and spontaneous flow is noted in left common femoral, superficial femoral, popliteal, posterior tibial, anterior tibial and peroneal veins. Visualized veins of left lower extremity demonstrate normal compressibility. No sonographic evidence of acute deep vein thrombosis (DVT) is detected in the visualized veins of lower extremity. Compression and Augmentation: All evaluated veins compress fully with applied transducer pressure. Augmentation of venous flow is noted with distal compression. Additional Findings: No evidence of intraluminal thrombus. Few prominent lymph nodes are identified in left inguinal region/groin largest is measures 3.7 x 1.3 x 3.3 cm IMPRESSION: 1. No sonographic evidence of acute DVT dwas etected at the time of examination. 2. Few prominent lymph nodes are identified in the left inguinal region/groin. Disclaimer: DVT could be missed early in the disease when clot burden is minimal. For patients with moderate and high pretest probability of DVT and negative ultrasound, the [employer] clinical guidelines recommend testing with a D-dimer assay or repeat ultrasound in 5-7 days. If symptoms worsen, the Society of radiologists in ultrasound recommends repeating ultrasound even earlier. Electronically signed by Alberto Malhotra 08-07-2024 03:09 AM
[2024-08-07] MEDS: MAGNESIUM SULFATE / D5W 1 GM/100 ML BAG IV SCH (05:41)
[2024-08-07] MEDS: NSS + 20MEQ KCL 20 MEQ/1,000 ML BAG IV SCH (05:52)
[2024-08-07] MEDS ORDERED: VANCOMYCIN HCL 2,000 MG in SODIUM CHLORIDE 0.9% 500 ML IV SCH (08:00)
[2024-08-07] MEDS: ENOXAPARIN INJ 40 MG/0.4 ML SYR SQ SCH (08:07)
[2024-08-07] MEDS: VANCOMYCIN HCL 1,250 MG in SODIUM CHLORIDE 0.9% 250 ML IV SCH (09:18)
[2024-08-07] MEDS: CEFEPIME 2000MG 2,000 MG/20 ML SYR IV SCH (09:19)
--- NOTE | 2024-08-07 10:42 | Electrocardiogram Report ---
Test Reason : Blood Pressure : */* mmHG Vent. Rate : 112 BPM Atrial Rate : 112 BPM P-R Int : 134 ms QRS Dur : 74 ms QT Int : 318 ms P-R-T Axes : 25 26 26 degrees QTcB Int : 434 ms Sinus tachycardia Otherwise normal ECG When compared with ECG of 25-May-2022 18:36, No significant change Confirmed by Shaji Moreland ([id number]) on 08/07/2024 10:41:57 AM Referred By: REFERRED SELF Confirmed By: Shaji Moreland
--- NOTE | 2024-08-07 10:57 | Hospitalist Progress Note ---
Date of Service August 07, 2024 Assessment & Plan (1) Cellulitis of left leg: (2) Sepsis: (3) History of incision and drainage: (4) Dehydration: Plan The patient is a 23-year-old male with a past medical history including recurrent cellulitis of left leg, paronychia and ingrown nail, attention deficit disorder without hyperactivity, morbid obesity with BMI greater than 50 and caf au lait spots. He presented to the ED due to development of progressively increasing swelling, redness and warmth of left lower extremity x 1 day, looking to be a recurrence of staph infection that he had noted initially in his left leg during admission from 05/25-05/29/2022. During that admission, patient did have an I&D, which ultimately grew coag negative staph. Recurrence of infection requiring hospitalization occurred from 12/09-12/11/2023. Patient has developed a recurrence of infection in the same area as previous I&D. Venous Doppler was negative for DVT, and also did not show any drainable fluid collection. COVID, flu and RSV testing negative, urinalysis negative, CXR unremarkable, tibia/fibula x-ray unremarkable. #Sepsis due to recurrent cellulitis of left lower extremity History of abscess requiring hospitalization with incision and drainage from -05/29/2022. Cultures at that time grew coag negative staph. Recurrent hospitalization for the same from 12/09-12/11/2023 Met sepsis criteria on admission with a temperature of 102.0F, respiratory rate of 33, leukocytosis of 22, and source of infection being cellulitis. Procal elevated at 4.18. Hypotension resolved after IV fluids Order immunoglobulin assays due to third instance of unprovoked cellulitis of left lower extremity - IgG, IgA, and IgM WNL Continue vancomycin IV and cefepime IV begun in the ED Tylenol prn pain/fever #Hypomagnesemia Magnesium 1.4 on admission Give magnesium sulfate 2 g IV, augmented appropriately now at 2.0 #Morbid obesity BMI 51.0 -needs aggressive weight loss program Dispo: Continue inpatient stay for IV antibiotics Admission and Anticipated Discharge Date Admission Date: August 07, 2024 Supervising Physician Co-Signing Physician Notes [facility] Supervision Note: I did not personally see or examine the patient today, but I verified all flores points of AVNI Ruiz's assessment and plan with the following exceptions/additions: None Subjective Patient seen and evaluated at bedside. He reports overall feeling better than yesterday, noting that his fever/chills and nausea with vomiting have resolved. He does still note warmth and mild tenderness in his left lower extremity. He denies any precipitating events to the recurrent cellulitis infection, nor any precipitating events to his initial infection in 2022. He denies any other recurrent infections. He currently denies any headache, chest pain, shortness of breath, abdominal pain, nausea, vomiting, diarrhea. We discussed continued inpatient stay for further IV antibiotics, he is agreeable. No additional complaints or concerns at this time. Physical Exam Physical Exam: General: No acute distress, nondiaphoretic, well-developed, well-nourished. Class III obesity. Skin: Anterior LLE with erythema extending from above ankle to mid/upper [place], mild tenderness to palpation, no weeping. Scar from previous I&D on anterior LLE. Cardiac: Regular rate and rhythm without murmurs gallops or rubs. Pulm: Clear to auscultation bilaterally without wheezes, rales or rhonchi. Normal respiratory effort. 96% on room air. Abdominal: Soft, nontender, distended secondary to body habitus. Bowel sounds present. Neuro: A&O x3. No focal neurological deficits. Results & Data Results & Data Vital Signs (Past 12 Hours) Vital Signs Temp Pulse Pulse Resp BP BP Pulse Ox 08/07/24 08:27 94 H 08/07/24 07:34 98.1 F 91 H 20 108/71 95 08/07/24 04:27 99.1 F 08/07/24 02:26 102.0 F H 115 H 17 97/60 L 96 08/07/24 01:03 104 H 29 H 120/67 98 08/06/24 23:09 109 H 14 120/80 98 O2 Del Method 08/07/24 08:27 08/07/24 07:34 Room Air 08/07/24 04:27 08/07/24 02:26 Room Air 08/07/24 01:03 Room Air 08/06/24 23:09 Room Air Laboratory Results Reviewed CBC Reviewed BMP/chemistries Reviewed urine and blood cultures PG Care Time/CCT Total # of Minutes Spent Total Time Spent with Patient: Total time spent is greater than 50% in coordination of care (as documented) at patient's floor/unit and/or counseling patient: Coding Level of Care Code None Diagnoses Cellulitis of left leg L03.116 Sepsis A41.9 History of incision and drainage Z98.890 Dehydration E86.0
[2024-08-07 11:01] LABS: Hematocrit (blood only) 40.1 % (42.0-52.0); Hemoglobin 13.7 g/dl (14.0-18.0); Mean Corpuscular Hemoglobin 29.9 pg (25.0-34.0); Mean Corpuscular Hgb Conc 34.2 g/dL (32.0-36.0); Mean Corpuscular Volume 87.6 fL (80.0-100.0); Mean Platelet Volume 11.2 fL (9.4-12.4); Platelet Count 238 K/uL (130-400); RDW Coefficient of Variation 13.5 % (11.5-14.5); RDW Standard Deviation 43.6 fL (36.4-46.3); Red Blood Count 4.58 M/uL (4.70-6.10)
[2024-08-07 11:13] LABS: BUN Creatinine Ratio 16.3 (10-20); Calcium 8.5 mg/dl (8.6-10.3); Creatinine Clr Calc Pharmacy 213.5 ml/min; Potassium 3.7 mmol/L (3.5-5.1)
--- NOTE | 2024-08-07 12:08 | Pharmacy Report ---
Pharmacy PK ABX Note - Date of Service August 07, 2024 - Assessment and Plan Assessment 23 year old M receiving cefepime/vancomycin for treatment of left lower extremity cellulits. Pertinent microbiologic data includes: blood cultures and urine culture pending. History of abscess 06/06 and again 12/05, cultures grew coag negative staph at the time. Day # 1 of antimicrobial therapy. Plan Vancomycin * Loading dose: 2750 mg IV x 1 * Maintenance dose: 1250 mg IV every 8 hours * Regimen is predicted to achieve target AUC/MARY of 400-600 mg/L.hr * Predicting AUC/MARY at bottom of goal range but still therapeutic, will continue dosing at this time due to likelyhood of vancomycin accumulation due to body habitus. * Trough level ordered for: 08/08/24 @ 0730. Pharmacy will continue to follow and will adjust dose/frequency as necessary. Thank you. Pharmacy has transitioned to AUC monitoring for vancomycin. AUC/MARY is the preferred PK/PD target and is associated with decreased risk of nephrotoxicity compared to traditional trough targets.
[2024-08-08 07:39] LABS: Hematocrit (blood only) 39.1 % (42.0-52.0); Hemoglobin 13.6 g/dl (14.0-18.0); Mean Corpuscular Hemoglobin 30.4 pg (25.0-34.0); Mean Corpuscular Hgb Conc 34.8 g/dL (32.0-36.0); Mean Corpuscular Volume 87.3 fL (80.0-100.0); Mean Platelet Volume 10.9 fL (9.4-12.4); Platelet Count 238 K/uL (130-400); RDW Coefficient of Variation 13.3 % (11.5-14.5); RDW Standard Deviation 42.2 fL (36.4-46.3); Red Blood Count 4.48 M/uL (4.70-6.10); White Blood Count 6.23 K/ul (4.8-10.8)
[2024-08-08 07:54] LABS: Albumin Level 3.6 gm/dl (3.4-5.0); BUN Creatinine Ratio 11.8 (10-20); Bilirubin Direct 0.1 mg/dl (0-0.2); Bilirubin,Total 0.7 mg/dl (0.2-1.0); Calcium 8.7 mg/dl (8.6-10.3); Creatinine Clr Calc Pharmacy 201.1 ml/min; Potassium 3.7 mmol/L (3.5-5.1); Total Protein 6.8 gm/dl (6.0-8.3)
--- NOTE | 2024-08-08 08:07 | Hospitalist Progress Note ---
Date of Service August 08, 2024 Assessment & Plan (1) Cellulitis of left leg: (2) Sepsis: (3) History of incision and drainage: (4) Class 3 obesity: Plan The patient is a 23-year-old male with a past medical history including recurrent cellulitis of left leg, paronychia and ingrown nail, attention deficit disorder without hyperactivity, morbid obesity with BMI greater than 50 and caf au lait spots. He presented to the ED due to development of progressively increasing swelling, redness and warmth of left lower extremity x 1 day, looking to be a recurrence of staph infection that he had noted initially in his left leg during admission from 05/25-05/29/2022. During that admission, patient did have an I&D, which ultimately grew coag negative staph. Recurrence of infection requiring hospitalization occurred from 12/09-12/11/2023. Patient has developed a recurrence of infection in the same area as previous I&D. Venous Doppler was negative for DVT, and also did not show any drainable fluid collection. COVID, flu and RSV testing negative, urinalysis negative, CXR unremarkable, tibia/fibula x-ray unremarkable. #Sepsis due to recurrent cellulitis of left lower extremity History of abscess requiring hospitalization with incision and drainage from 05/25-05/29/2022. Cultures at that time grew coag negative staph. Recurrent hospitalization for the same from 12/09-12/11/2023 Met sepsis criteria on admission with a temperature of 102.0F, respiratory rate of 33, leukocytosis of 22, and source of infection being cellulitis. Procal elevated at 4.18. Hypotension resolved after IV fluids Ordered immunoglobulin assays due to third instance of unprovoked cellulitis of left lower extremity - IgG, IgA, and IgM WNL Infectious disease consulted per family request - antibiotics adjusted to Cefazolin 2 g IV q8h. Plan to transition to Keflex 500 mg QID through 08/13 on discharge #Hypomagnesemia - Magnesium 1.4 on admission, repleted and augmented appropriately #Class III obesity BMI 51.0 - Recommend aggressive weight loss program. LFTs WNL #Abnormal urinalysis-UA with trace protein, trace ketones, 1+ LE, 11-20 WBCs, 3- 5 epithelial cells, no bacteria. Urine culture now with pinpoint growth. No symptoms but is on antibiotics that would cover for UTI anyway -Follow urine culture Dispo: Anticipate discharge home tomorrow, 08/09 Consulted ID Discussed antibiotic regimen with ID physician Admission and Anticipated Discharge Date Admission Date: August 07, 2024 Supervising Physician Co-Signing Physician Notes PA Supervision Note: I did not personally see or examine the patient today, but I verified all flores points of AVNI Ruiz's assessment and plan with the following exceptions/additions: None Subjective Patient seen and evaluated at bedside. He reports feeling better. Notes the tenderness and pain is improved in his LLE. He denies any nausea, abdominal pain, diarrhea, chest pain, shortness of breath, headache. Discussed the new plan put in place by ID. Anticipate discharge home tomorrow on oral antibiotics to complete course. No additional complaints or concerns at this time. Physical Exam Physical Exam: General: No acute distress, nondiaphoretic, well-developed. Class III obesity. Skin: Improving anterior LLE with erythema extending from above ankle to mid/upper [place]. Very mild tenderness to palpation, no weeping. Scar from previous I&D on anterior LLE. Cardiac: Regular rate and rhythm without murmurs gallops or rubs. Pulm: Clear to auscultation bilaterally without wheezes, rales or rhonchi. Normal respiratory effort. 97% on room air. Abdominal: Soft, nontender, distended secondary to body habitus. Bowel sounds present. Neuro: A&O x3. No focal neurological deficits. Results & Data Results & Data Vital Signs (Past 12 Hours) Vital Signs Temp Pulse Pulse Resp BP Pulse Ox O2 Del Method 08/08/24 07:10 98.6 F 78 18 119/77 95 Room Air 08/08/24 03:00 98.2 F 83 18 112/70 96 Room Air 08/07/24 23:11 98.1 F 88 17 102/60 95 Room Air 08/07/24 22:44 93 H Laboratory Results Reviewed CBC Reviewed BMP, LFTs Reviewed urine and blood cultures PG Care Time/CCT Total # of Minutes Spent Total Time Spent with Patient: Total time spent is greater than 50% in coordination of care (as documented) at patient's floor/unit and/or counseling patient: Coding Level of Care Code 42542 SUB INP/OBS CARE 3/50MIN Diagnoses Cellulitis of left leg L03.116 Sepsis A41.9 History of incision and drainage Z98.890 Class 3 obesity E66.813
[2024-08-08] MEDS: VANCOMYCIN LEVEL ONE (08:36)
[2024-08-08] MEDS: VANCOMYCIN HCL 2,000 MG in SODIUM CHLORIDE 0.9% 500 ML IV SCH (08:59)
--- NOTE | 2024-08-08 09:31 | Infectious Disease Consult ---
Date of Consultation August 08, 2024 Assessment & Plan (1) Cellulitis of left leg: (2) Morbid obesity with BMI of 50.0-59.9, adult: Plan Problems: #Recurrent LLE cellulitis #History of LLE cellulitis with abscess s/p I&D 05/2022 Micro: 08/06 BCx x2: NGTD Abx: Vanc 08/06 - present Cefepime 08/06 - present 23 yo M with history of obesity, LLE cellulitis who presented on 08/06 with chills and LLE erythema, swelling, admitted with LLE cellulitis. He has a history of LLE cellulitis in May 2022, at which time he was admitted and underwent an I&D from which culture only grew rare coag neg Staph (had been on dapto, ceftriaxone for ~1 day prior to culture). Was transitioned to TMP/SMX on discharge. Pt had another episode of LLE cellulitis in 11/2023, at which time CT showed cellulitis without abscess. He was treated with ceftriaxone while inpatient, then transitioned to cephalexin on discharge with resolution. On presentation this admission, pt was initially afebrile but became febrile later to 38.9, HR 116, BP 99/58. Labs showed WBC 22.25, Cr 1.1, procalcitonin 4.18. XR tib/fib with no acute osseous findings. LLE venous duplex US with no DVT, but a few prominent lymph nodes in L inguinal region/groin. Pt denied trauma to the LLE. Pt was started on vanc, cefepime. Leukocytosis has now resolved. Pt reports erythema is decreasing, and his chills, N/V have resolved. Vanc trough 5.9 this AM. Unclear why pt is having recurrence of LLE cellulitis. Pt denies chronic LE edema. Obesity is a risk factor for cellulitis. Consider impaired lymphatic drainage in the setting of prior episode of cellulitis with I&D. Would target Strep here. No signs of abscess that would require Staph aureus coverage. The coag neg Staph that grew on culture 05/2022 was likely a skin contaminant. Recommendations: -Narrowed vanc, cefepime to cefazolin 2 g IV q8h -Encouraged to elevate his LLE to help with erythema, swelling -On discharge, can transition to cephalexin 500 mg PO QID through 08/13 to compelete a 7 day course Will sign off. Consultation Information Consultation was provided via telemedicine using two-way real-time interactive telecommunication between the patient and the telemedicine provider. For the duration of the visit, the provider was performing the assessment from a different facility than the patient. This includesuse of bluetooth stethoscope forauscultationperformed by the telepresenter that the telemedicine provider can hear if described in the physical exam. [facility] contact information: Please call [facility] [phone]. (Phone Number For Physician Use Only) After establishing a telemedicine visit, patient was: Patient was verified with two unique identifiers, Patient/authorized rep acknowledged consent and understanding and Gave permission to continue telehealth session Time Spent with Patient: Initial => 40 min History of Present Illness Reason for Consultation: Recurrent LLE cellulitis Attending Physician: Valentina Bonner MD History of Present Illness 23 yo M with history of obesity, LLE cellulitis who presented on 08/06 with chills and LLE erythema, swelling. He has a history of LLE cellulitis in May 2022, at which time he was admitted and underwent an I&D from which culture only grew rare coag neg Staph (had been on dapto, ceftriaxone for ~1 day prior to culture). Was transitioned to TMP/SMX on discharge. Pt had another episode of LLE cellulitis in 11/2023, at which time CT showed cellulitis without abscess. He was treated with ceftriaxone while inpatient, then transitioned to cephalexin on discharge with resolution. On presentation this admission, pt was initially afebrile but became febrile later to 38.9, HR 116, BP 99/58. Labs showed WBC 22.25, Cr 1.1, procalcitonin 4.18. XR tib/fib with no acute osseous findings. LLE venous duplex US with no DVT, but a few prominent lymph nodes in L inguinal region/groin. Pt denied trauma to the LLE. Pt was started on vanc, cefepime. Leukocytosis has now resolved. Pt reports erythema is decreasing, and his chills, N/V have resolved. Vanc trough 5.9 this AM. Allergies Allergy/AdvReac Type Severity Reaction Status Date / Time No Known Allergies Allergy Verified 08/06/24 22:38 Home Medications Medication Instructions Recorded Confirmed Type No Known Home Medications 08/06/24 08/06/24 History Patient History Medical History Elevated CK Abscess of left leg Elevated LFTs Acute pharyngitis, unspecified Family History Mother No problems noted. Father No problems noted. Social History Smoking Status: Never smoker Second Hand Exposure: No; Do You Dip or Chew Tobacco: No; Hx Alcohol Use: Yes Alcohol type: hard liquor Hx Substance Use: No Preferred Language: Lithuanian Communication Ability: Effective Acupuncturist Required: No Beliefs That Will Affect Care: None Current Living Situation: Parent current occupational status: employed Feels Safe at Home: Yes Safety Concerns: Feels Safe At This Time Childhood Exposure to Second-Hand Smoke: No Diet: regular caffeine: Yes Dental Care, Regularly: No Physical Activity Frequency: 3-4 Times per Week Seatbelt Use: always Sunscreen Use: No Assistive Devices: None Review of System A complete ROS was performed and is negative except as mentioned in the HPI. Physical Exam Physical Exam: GEN: Well-appearing, in NAD. RESP: No increased work of breathing SKIN: LLE with erythema between knee and ankle. Old scar on L medial calf BACK: No paraspinal tenderness or CVA tenderness NEURO: Alert and oriented. Answers all questions appropriately. Speech not slurred. PSYCH: Normal mood, affect appropriate. Results & Data Vital Signs (Past 12 Hours) Vital Signs Temp Pulse Pulse Resp BP Pulse Ox O2 Del Method 08/08/24 07:10 37 C 78 18 119/77 95 Room Air 08/08/24 03:00 36.8 C 83 18 112/70 96 Room Air 08/07/24 23:11 36.7 C 88 17 102/60 95 Room Air 08/07/24 22:44 93 H Laboratory Results Short CBC 08/07/24 08/08/24 Range/Units 10:16 07:18 WBC 11.90 H D 6.23 (4.8-10.8) K/ul Hgb 13.7 L 13.6 L (14.0-18.0) g/dl Hct 40.1 L 39.1 L (42.0-52.0) % Plt Count 238 238 (130-400) K/uL BMP 08/07/24 08/08/24 10:16 07:18 Sodium 135 L 136 Potassium 3.7 3.7 Chloride 106 105 Carbon Dioxide 27 26 BUN 13 10 Creatinine 0.80 D 0.85 Glucose 103 H 91 Calcium 8.5 L 8.7 Liver Function 08/08/24 Range/Units 07:18 Total Bilirubin 0.7 (0.2-1.0) mg/dl Direct Bilirubin 0.1 (0-0.2) mg/dl AST 35 (13-39) U/L ALT 43 (7-52) U/L Alkaline Phosphatase 59 (34-104) U/L Albumin 3.6 (3.4-5.0) gm/dl Diagnostic Findings Chest X-Ray 08/06/24 20:53 Exam(s): XR CXR 1 VIEW EXAM: XR Chest, 1 View CLINICAL HISTORY: Reason for exam: Sepsis. TECHNIQUE: Frontal view of the chest. COMPARISON: No relevant prior studies available. FINDINGS: Lungs: No consolidation. Pleural space: No pleural effusion or pneumothorax. Heart: No cardiomegaly or pulmonary vascular congestion. Bones/joints: No acute fracture. No dislocation. IMPRESSION: No evidence of acute cardiopulmonary disease. Electronically signed by: Damaris Gandhi M.D. 08/06/24 22:51 PM Tibia/Fibula X-Ray 08/06/24 22:15 Exam(s): XR LEFT TIB/FIB, 2 views EXAM: XR Left Tibia and Fibula, 2 Views CLINICAL HISTORY: Reason for exam: infection. TECHNIQUE: Frontal and lateral views of the left tibia and fibula. COMPARISON: 12/10/23 FINDINGS: Bones/joints: No acute fracture. No dislocation. Soft tissues: Unremarkable. No radiopaque foreign body. IMPRESSION: No acute osseous findings. Electronically signed by: Damaris Gandhi M.D. 08/06/24 23:14 PM Venous Doppler Study 08/07/24 00:15 EXAM: US venous doppler LE LT CLINICAL HISTORY: edema, pain, warmth LLE TECHNIQUE: Ultrasound examination of left lower extremity veins was performed in real time and duplex. One or more of the following were performed- spectral analysis, resistive index, waveform analysis, and pulsed Doppler. COMPARISON: None. FINDINGS: Examination is limited by increased body habitus as per tech sheet. Normal phasic, non-pulsatile and spontaneous flow is noted in left common femoral, superficial femoral, popliteal, posterior tibial, anterior tibial and peroneal veins. Visualized veins of left lower extremity demonstrate normal compressibility. No sonographic evidence of acute deep vein thrombosis (DVT) is detected in the visualized veins of lower extremity. Compression and Augmentation: All evaluated veins compress fully with applied transducer pressure. Augmentation of venous flow is noted with distal compression. Additional Findings: No evidence of intraluminal thrombus. Few prominent lymph nodes are identified in left inguinal region/groin largest is measures 3.7 x 1.3 x 3.3 cm IMPRESSION: 1. No sonographic evidence of acute DVT dwas etected at the time of examination. 2. Few prominent lymph nodes are identified in the left inguinal region/groin. Disclaimer: DVT could be missed early in the disease when clot burden is minimal. For patients with moderate and high pretest probability of DVT and negative ultrasound, the [employer] clinical guidelines recommend testing with a D-dimer assay or repeat ultrasound in 5-7 days. If symptoms worsen, the Society of radiologists in ultrasound recommends repeating ultrasound even earlier. Electronically signed by Alberto Malhotra 08-07-2024 03:09 AM Medications Administered Current Inpatient Medications Acetaminophen (Acetaminophen 325 Mg Tab) 650 mg PO Q4H PRN PRN Reason: Pain or Fever Stop: 09/06/24 02:20 Last Admin: 08/07/24 02:26 Dose: 650 mg Enoxaparin Sodium (Enoxaparin Inj 40 Mg/0.4 Ml Syr) 40 mg SQ Q12H ALEYDA Stop: 09/06/24 07:59 Last Admin: 08/08/24 08:35 Dose: 40 mg Cefepime HCl (Maxipime 2000mg) 2,000 mg in 20 mls @ 5 mls/min IV Q12H ALEYDA; Protocol Stop: 08/14/24 06:59 Last Admin: 08/07/24 23:28 Dose: 5 mls/min Vancomycin HCl 2,000 mg/ (Sodium Chloride) 540 mls @ 200 mls/hr IV Q8H ALEYDA Stop: 08/15/24 08:59 Last Admin: 08/08/24 08:59 Dose: 200 mls/hr Miscellaneous Information (Vancomycin Consult Active) 1 each N/A UD PRN PRN Reason: Consult Stop: 09/06/24 02:20 Ondansetron HCl (Ondansetron Inj 2 Mg/Ml 2 Ml Vial) 4 mg IV Q6H PRN PRN Reason: Nausea Stop: 09/06/24 02:20
[2024-08-08] MEDS: ceFAZolin 2000MG 2,000 MG/15 ML SYR IV SCH (11:41)
[2024-08-09 07:50] VITALS: RESP 16
[2024-08-09] MEDS: cephALEXin 500 MG CAP PO SCH (08:54)
[2024-08-09 09:31] LABS: Hematocrit (blood only) 40.1 % (42.0-52.0); Hemoglobin 13.6 g/dl (14.0-18.0); Mean Corpuscular Hemoglobin 29.2 pg (25.0-34.0); Mean Corpuscular Hgb Conc 33.9 g/dL (32.0-36.0); Mean Corpuscular Volume 86.2 fL (80.0-100.0); Mean Platelet Volume 10.9 fL (9.4-12.4); Platelet Count 266 K/uL (130-400); RDW Standard Deviation 40.7 fL (36.4-46.3); Red Blood Count 4.65 M/uL (4.70-6.10); White Blood Count 4.55 K/ul (4.8-10.8)
[2024-08-09 09:48] LABS: Creatinine Clr Calc Pharmacy 170.3 ml/min
[2024-08-09 10:52] VITALS: BP 106/71; PULSE 78; TEMP 97.7; O2SAT 98
--- NOTE | 2024-08-09 15:49 | Discharge Summary ---
Discharge Summary Date of Service August 09, 2024 Principal Dx & Hospital Course #1 = Principal Diagnosis (1) Cellulitis of left leg: (2) Sepsis: (3) History of incision and drainage: (4) Class 3 obesity: Plan The patient is a 23-year-old male with a past medical history including recurrent cellulitis of left leg, paronychia and ingrown nail, attention deficit disorder without hyperactivity, morbid obesity with BMI greater than 50 and caf au lait spots. He presented to the ED due to development of progressively increasing swelling, redness and warmth of left lower extremity x 1 day, looking to be a recurrence of staph infection that he had noted initially in his left leg during admission from 05/25-05/29/2022. During that admission, patient did have an I&D, which ultimately grew coag negative staph. Recurrence of infection requiring hospitalization occurred from 12/09-12/11/2023. Patient has developed a recurrence of infection in the same area as previous I&D. Venous Doppler was negative for DVT, and also did not show any drainable fluid collection. COVID, flu and RSV testing negative, urinalysis negative, CXR unremarkable, tibia/fibula x-ray unremarkable. Patient denies chronic lower extremity edema, making impaired lymphatic drainage in the setting of previous I&D less likely. #Sepsis due to recurrent cellulitis of left lower extremity History of abscess requiring hospitalization with incision and drainage from 05/25-05/29/2022. Cultures at that time grew coag negative staph. Recurrent hospitalization for the same from 12/09-12/11/2023 Met sepsis criteria on admission with a temperature of 102.0F, respiratory rate of 33, leukocytosis of 22, and source of infection being cellulitis. Procal elevated at 4.18. Hypotension resolved after IV fluids Ordered immunoglobulin assays due to third instance of unprovoked cellulitis of left lower extremity - IgG, IgA, and IgM WNL Infectious disease consulted per family request - unclear why he was having recurrence of LLE cellulitis. Obesity is a risk factor for cellulitis. [place] that the coag negative staph that grew on culture in May 2022 was likely a skin contaminant. No sign of abscess currently that would require Staph aureus coverage Transitioned to Keflex 500 mg PO QID through 08/13 on discharge #Hypomagnesemia - Magnesium 1.4 on admission, repleted and augmented appropriately #Class III obesity BMI 51.0 - Recommend aggressive weight loss program. LFTs WNL #Abnormal urinalysis - UA with trace protein, trace ketones, 1+ LE, 11-20 WBCs, 3-5 epithelial cells, no bacteria. Urine culture resulted as mixed probable skin kaiser. No urinary symptoms and on antibiotic regimen regardless for cellulitis infection Dispo: Discharged home 08/09 Notes For Next Care Provider Recommend aggressive weight loss program. Suspect this is the most likely reason behind his recurrent LLE cellulitis infections. Medication Changes From Visit Keflex 500 mg p.o. QID through 08/13/24 Admission HPI Per Admitting Provider The patient is a 23-year-old male with a past medical history including recurrent cellulitis of left leg, paronychia and ingrown nail, attention deficit disorder without hyperactivity, morbid obesity with BMI greater than 50 and caf au lait spots. The patient reports that he woke up earlier in the morning, and noted that he was having symptoms of redness, warmth and pain, with increasing swelling as the day progressed in his left lower extremity. Upon presentation to the emergency department, he noted that he also had some nausea, which did improve with IV fluids.The patient presents to the emergency department due to development of progressively increasing swelling, redness and warmth of left lower extremity, looking to be a recurrence of staph infection that he had noted initially in his left leg during admission from 05/25-05/29/2022. During that admission, patient did have an I&D, which ultimately grew coag negative staph. Recurrence of infection requiring hospitalization occurred from 12/09-12/11/2023. Patient has developed a recurrence of infection in the same area as previous I&D again today. We did order a venous Doppler, which was negative for DVT, and also did not show any drainable fluid collection. From the ED the patient did receive vancomycin IV, cefepime 2 g IV, and normal saline 1 L IV boluses x 2. He was then [facility] Discharge Exam General: No acute distress, nondiaphoretic, well-developed. Class III obesity. Skin: Much improved anterior LLE with erythema extending from above ankle to mid hidalgo. Tenderness to palpation now resolved. No weeping. Scar from previous I&D on anterior LLE. Cardiac: Regular rate and rhythm without murmurs gallops or rubs. Pulm: Clear to auscultation bilaterally without wheezes, rales or rhonchi. Normal respiratory effort. 98% on room air. Abdominal: Soft, nontender, distended secondary to body habitus. Bowel sounds present. Neuro: A&O x3. No focal neurological deficits. Discharge Plan Discharge Items Patient Disposition: Home - Self-Care Reason For Visit: SEPSIS DUE TO LLE CELLULITIS Discharge Diagnosis: LLE cellulitis Activity: Resume your previous activity Non-emergency contact: Primary Care Provider Call non-emergency contact if: you have any medication questions and your symptoms worsen Follow-up/Referrals: Rita Miranda CRNP [Primary Care Provider] - 08/14/24 11:30 am (Hospital follow up scheduled for August 14, 2024 at 11:30am) Diet: Regular Addtl Attending Provider Instructions: Jose Luis Pineda were admitted to the hospital with sepsis from a cellulitis infection in your left lower leg. Cellulitis is an infection of the skin/soft tissues caused by bacteria. Bacteria can enter the body through broken skin; this can happen with a cut, scratch, or insect bite. You have been treated in the hospital with IV antibiotics, and will be discharged with oral antibiotics to continue taking at home. Venous Doppler study was negative for a blood clot in your leg, and Tibia/Fibula x-ray was negative for fracture or dislocation of your leg. The infectious disease doctor saw you via telemedicine, and felt it is unclear why you are having these recurrent cellulitis infections in your left leg. Obesity is a risk factor for cellulitis, so a weight loss program may help prevent these recurrent infections. Additionally, your urine culture has not finalized but the antibiotics you are taking will cover for a UTI anyway. Upon discharge from the hospital: * Take Keflex (oral antibiotic) every 6 hours (4 times daily) through 08/13/2024. You received your first dose of this in the hospital prior to discharge, so you have 3 remaining doses to take today, 08/09/2024. Take this antibiotic as directed until it is gone. Take it even if you feel better. It treats the infection and prevents it from returning. Not taking all of the medicine can make future infections harder to treat. * Follow-up with your PCP in 1-2 weeks. Recommend discussing further weight loss options. Keep up the good work on your weight loss journey! Please return to the hospital if you experience any of the following: Fever of 100.5 F or higher, trouble or pain with moving the joints above or below the infected area, discharge or pus draining from the infected area, pain that gets worse in or around the infected area, redness that gets worse and around the infected area, shaking chills, worsened swelling of the infected area, persistent vomiting, lightheadedness, dizziness, passing out, shortness of br eath, difficulty breathing, or chest pain. It was a pleasure taking care of you while you were in the hospital! Pending Studies at Discharge: Yes Studies:: Finalized urine culture Stand-Alone Forms: My [facility], Work/School Release, Smoking Cessation Medications and DC Order Prescriptions: New cephalexin 500 mg capsule 500 mg PO QID Qty: 19 0RF Discharge Orders: Discharge Order (Routine); Ordered 08/09/24 Ordered By: Kristi Branch/Other Patient Handouts: Weight Management: Getting Started, Weight Loss, Cellulitis Dc Admission Data Admit Date/Time: 08/07/24 00:25 Attending Provider: Valentina Bonner Admit Provider: Wesly Florez Primary Care Provider: Rita Miranda Other Providers: Wesly Florez Other Interventions: Discharge Summary Assessment (RN) Last Done: 08/09/24 10:43 Hospital Stay Data Consultations 08/06/24 23:17 ED Decision to Admit Stat 08/08/24 08:00 Consult Infectious Diseases Routine Diagnostic Imagining Performed 08/07/24 00:15 US venous doppler LE LT Stat Pending Results Patient Have Any Pending Studies at Discharge: Yes Discharge Instructions Given to Patient (Per Discharging Provider) Jose Luis Pineda were admitted to the hospital with sepsis from a cellulitis infection in your left lower leg. Cellulitis is an infection of the skin/soft tissues caused by bacteria. Bacteria can enter the body through broken skin; this can happen with a cut, scratch, or insect bite. You have been treated in the hospital with IV antibiotics, and will be discharged with oral antibiotics to continue taking at home. Venous Doppler study was negative for a blood clot in your leg, and Tibia/Fibula x-ray was negative for fracture or dislocation of your leg. The infectious disease doctor saw you via telemedicine, and felt it is unclear why you are having these recurrent cellulitis infections in your left leg. Obesity is a risk factor for cellulitis, so a weight loss program may help prevent these recurrent infections. Additionally, your urine culture has not finalized but the antibiotics you are taking will cover for a UTI anyway. Upon discharge from the hospital: * Take Keflex (oral antibiotic) every 6 hours (4 times daily) through 08/13/2024. You received your first dose of this in the hospital prior to discharge, so you have 3 remaining doses to take today, 08/09/2024. Take this antibiotic as directed until it is gone. Take it even if you feel better. It treats the infection and prevents it from returning. Not taking all of the medicine can make future infections harder to treat. * Follow-up with your PCP in 1-2 weeks. Recommend discussing further weight loss options. Keep up the good work on your weight loss journey! Please return to the hospital if you experience any of the following: Fever of 100.5 F or higher, trouble or pain with moving the joints above or below the infected area, discharge or pus draining from the infected area, pain that gets worse in or around the infected area, redness that gets worse and around the infected area, shaking chills, worsened swelling of the infected area, persistent vomiting, lightheadedness, dizziness, passing out, shortness of breath, difficulty breathing, or chest pain. It was a pleasure taking care of you while you were in the hospital! Supervising Physician Co-Signing Physician Notes PA Supervision Note: I personally saw and examined the patient. I verified all flores points and agree with AVNI Little with the following exceptions and/or additions: S-Pt feeling better, no pain in leg, no fevers, no diarrhea O- Vitals reviewed Gen: [AAOx3, NAD, obese] HEENT: [anicteric sclerae, EOMI] CV: [RRR no mgr nl S1S2] Pulm: [CTAB no wcr] Abd: [+BS soft NT ND no masses or hernias] Ext: [no edema, 2+ DP pulses] Skin: [left leg from ankle to knee with very mild erythema, no warmth or tenderness; incisional scar mid hidalgo from previous I&D] Neuro: [full strength throughout] CBC, BMP reviewed A/P-23 yo male here with sepsis, left leg cellulitis. Much improved stable for dc to home on po keflex recommend weight loss,discuss GLP-1 with PCP Total Time Total Time Spent Total Time Spent (In Minutes): Greater than 30 minutes spent completing this discharge process including direct patient care, medication reconciliation, documentation, review of labs and images, and coordination of care. Coding Level of Care Code 87875 INP/OBS DISCH >30 MIN Diagnoses Cellulitis of left leg L03.116 Sepsis A41.9 History of incision and drainage Z98.890 Class 3 obesity E66.813
== END 2024-08-09 12:17 | disposition home or self-care (01) | DRG 872 ==
LOC: ED 20:43 → 2S 08-07 00:25 → SUATTDRO 08-07 00:25 → 2S 08-07 01:22

== ENCOUNTER 2025-01-29 05:14 | Inpatient (IN) ==
[2025-01-29] MEDS: SODIUM CHLORIDE 0.9% 1,000 ML IV SCH ×2 (05:42→11:57)
[2025-01-29 05:57] LABS: Hematocrit (blood only) 43.1 % (42.0-52.0); Hemoglobin 14.9 g/dl (14.0-18.0); Immature Granulocytes # (auto) 0.04 K/uL (0.01-0.20); Immature Granulocytes % (auto) 0.3 %; Mean Corpuscular Hemoglobin 29.7 pg (25.0-34.0); Mean Corpuscular Volume 85.9 fL (80.0-100.0); Platelet Count 258 K/uL (130-400); RDW Standard Deviation 40.4 fL (36.4-46.3); Red Blood Count 5.02 M/uL (4.70-6.10); White Blood Count 13.28 K/ul (4.8-10.8)
--- NOTE | 2025-01-29 06:11 | Emergency Department Note ---
Impression & Plan Sepsis, Cellulitis, Hypotension, Leukocytosis, Hypomagnesemia ED Provider Note NAME: JEFF ORANTES II AGE: 24 SEX: M : 2000 ARRIVES VIA: Walk-In INFORMANT: [Patient] ED PROVIDER(S): [Ray Cordova MD] CHIEF COMPLAINT: Leg pain HISTORY OF PRESENT ILLNESS: Patient is a 24-year-old male who states that in the last 24 hours, he has noticed left lower leg pain, fever, fatigue and nausea and vomiting. He has developed erythema in the left lower extremity. Patient has had similar issues before and has been hospitalized for cellulitis and early sepsis. The patient states that this all started very suddenly. There was really no warning he was becoming ill. There has been no cough or cold or congestion. No abdominal pain. The reason for the recurrence of this cellulitis is unclear. PMHx/PSHx/Social Hx: See Below PHYSICAL EXAM: GENERAL: Patient is in no acute distress. HEENT: No acute trauma, normocephalic atraumatic, mucous membranes moist, no nasal congestion. NECK: No stridor, no adenopathy, no meningismus, trachea is midline. LUNGS: Clear to auscultation bilaterally, no wheeze, no rhonchi, breath sounds equal. HEART: Mildly tachycardic, regular rhythm, no murmurs. ABDOMEN: Soft, nontender, no peritonitis. Obese EXTREMITIES: No cyanosis, full range of motion of all the joints without pain or difficulty. The patient does have an area of erythema to the left lower extremity distally. It seems to be above the ankle involving two thirds of the anterior medial tib-fib. There is warmth present, no drainage. No evidence for left lower extremity neurovascular compromise. NEUROLOGIC: Oriented x 3, no acute motor or sensory deficits, no focal weakness. SKIN: No jaundice, no diaphoresis. DIFFERENTIAL DIAGNOSIS: Bacteremia or sepsis, cellulitis, abscess, electrolyte imbalance, dehydration, among others. EMERGENCY DEPARTMENT PROCEDURES: MEDICAL DECISION MAKING: There is a mild leukocytosis, this would be consistent with infection. There was a normal hemoglobin and platelet count. No bandemia. No renal failure. Magnesium is low 1.6. No worrisome liver enzyme elevation. Lactic acid level was not elevated making severe sepsis less likely. Left leg ultrasound shows a small fluid collection consistent with a potential abscess. Chest x-ray did not show pneumonia or CHF. On exam, the patient did have left lower extremity erythema and warmth. He was hypotensive and tachycardic. The patient did meet criteria for sepsis. He was aggressively managed. The patient received IV saline, 3250 cc. This will meet criteria for over 30 cc/kg of IV fluids per the sepsis protocol. Patient was given IV Tylenol, IV Toradol, IV magnesium, IV Zofran and IV Zosyn. On reassessment, the patient's blood pressure has improved and is adequate. IV pressors are not needed. The patient has early sepsis from a left lower extremity cellulitis. He has had this issue previously. He is going to require a hospital stay. I did speak with the patient and his family, I spoke with case management, the on-call hospitalist was consulted. Prior/Outside records/notes reviewed: Discharge summary note from 08/09/2024 describing his presentation, hospital course and discharge plan. ECG per my interpretation: Indication was possible sepsis. The ECG shows a sinus tachycardia with a rate of 113. There is a potential old inferior infarct. There is no ST elevation, no PVCs. The QTc is 411. Continuous Cardiac Monitoring per my interpretation: An order was placed for continuous cardiac monitoring. The monitor shows a rate of 110 with sinus tachycardia. Imaging/x-ray results per my interpretation: Chest x-ray shows some atelectasis at both bases, no focal pneumonia. Chronic Medical/Social conditions affecting care: Obesity Care/Management discussed with: Case management and the on-call hospitalist. Level of care consideration(s): After review of the information above and other included data: --I believe the patient requires escalation of care to admission Critical Care Note: I have personally spent 44 minutes of critical care time in the direct management of this patient. This includes bedside care, interpretation of diagnostic studies, and testing, discussion with consultants, patient, and family members, and other required patient management activities. This 44 minutes is in excess of all separately billable procedures. DISPOSITION: Admission Past Med/Surg History Problem List (Updated 01/29/25 @ 13:45 by Ray Cordova MD) Hypomagnesemia (Acute) Leukocytosis (Acute) Hypotension (Acute) Cellulitis (Acute) Sepsis (Acute) Class 3 obesity Morbid obesity with BMI of 50.0-59.9, adult Cellulitis of left leg (Acute) History of incision and drainage 05/2022 ([facility]) Left leg abscess Paronychia due to ingrown nail Ingrown toenail of both feet Abnormal thyroid function test (Acute) [id number] spots (Acute) Medical History Dehydration Sepsis Elevated CK Abscess of left leg Elevated LFTs Acute pharyngitis, unspecified Family History Mother No problems noted. Father No problems noted. Social History Smoking Status: Never smoker Second Hand Exposure: No; Do You Dip or Chew Tobacco: No; Hx Alcohol Use: Yes Alcohol type: hard liquor Hx Substance Use: No Preferred Language: Azeri Communication Ability: Effective Mink Slicer Required: No Beliefs That Will Affect Care: None Current Living Situation: Parent current occupational status: employed Feels Safe at Home: Yes Childhood Exposure to Second-Hand Smoke: No Diet: regular caffeine: Yes Dental Care, Regularly: No Physical Activity Frequency: 3-4 Times per Week Seatbelt Use: always Sunscreen Use: No Assistive Devices: None Allergies Allergies Allergy/AdvReac Type Severity Reaction Status Date / Time No Known Allergies Allergy Verified 01/29/25 09:30 Home Meds Home Medications Medication Instructions Recorded Confirmed No Known Home Medications 01/29/25 01/29/25 Results & Data (ED) Vital Signs Vital Signs - 24 hr 01/29/25 05:17 01/29/25 05:30 01/29/25 05:36 Temperature 37.7 C H Temperature Source Oral Pulse Rate 119 H 113 H 111 H Pulse Rate [Apical] Pulse Rate from SpO2 Sensor Pulse Rhythm [Apical] Pulse Strength [Apical] Respiratory Rate 22 39 H Respiratory Effort / Characteristics Non-Labored Spontaneous Respiratory Depth Normal Respiratory Pattern Regular Blood Pressure 86/53 L Blood Pressure [Left Arm] Blood Pressure [Right Arm] Blood Pressure Mean 64 Blood Pressure Mean [Left Arm] Blood Pressure Mean [Right Arm] Blood Pressure Position Sitting Pulse Oximetry 95 98 Oxygen Delivery Method Room Air Sepsis Recent Fever Within 48 Hours Yes Sepsis New/Unexplained Change in Mental Status No Sepsis Action Taken by Nursing Physician Notified 01/29/25 05:45 01/29/25 05:48 01/29/25 05:54 Temperature Temperature Source Pulse Rate 110 H 108 H Pulse Rate [Apical] Pulse Rate from SpO2 Sensor Pulse Rhythm [Apical] Pulse Strength [Apical] Respiratory Rate 23 29 H Respiratory Effort / Characteristics Respiratory Depth Respiratory Pattern Blood Pressure 99/54 L Blood Pressure [Left Arm] Blood Pressure [Right Arm] Blood Pressure Mean 69 Blood Pressure Mean [Left Arm] Blood Pressure Mean [Right Arm] Blood Pressure Position Pulse Oximetry 96 99 Oxygen Delivery Method Room Air Sepsis Recent Fever Within 48 Hours Sepsis New/Unexplained Change in Mental Status Sepsis Action Taken by Nursing 01/29/25 06:02 01/29/25 06:02 01/29/25 06:03 Temperature Temperature Source Pulse Rate 104 H Pulse Rate [Apical] Pulse Rate from SpO2 Sensor 105 H Pulse Rhythm [Apical] Pulse Strength [Apical] Respiratory Rate 21 Respiratory Effort / Characteristics Respiratory Depth Respiratory Pattern Blood Pressure 121/57 L 121/57 L Blood Pressure [Left Arm] Blood Pressure [Right Arm] Blood Pressure Mean 74 74 Blood Pressure Mean [Left Arm] Blood Pressure Mean [Right Arm] Blood Pressure Position Pulse Oximetry 92 Oxygen Delivery Method Sepsis Recent Fever Within 48 Hours Sepsis New/Unexplained Change in Mental Status Sepsis Action Taken by Nursing 01/29/25 06:12 01/29/25 06:15 01/29/25 06:24 Temperature Temperature Source Pulse Rate 107 H 107 H Pulse Rate [Apical] Pulse Rate from SpO2 Sensor 102 H 106 H Pulse Rhythm [Apical] Pulse Strength [Apical] Respiratory Rate 22 23 Respiratory Effort / Characteristics Respiratory Depth Respiratory Pattern Blood Pressure 90/69 L Blood Pressure [Left Arm] Blood Pressure [Right Arm] Blood Pressure Mean 75 Blood Pressure Mean [Left Arm] Blood Pressure Mean [Right Arm] Blood Pressure Position Pulse Oximetry 92 91 Oxygen Delivery Method Sepsis Recent Fever Within 48 Hours Sepsis New/Unexplained Change in Mental Status Sepsis Action Taken by Nursing 01/29/25 06:32 01/29/25 06:45 01/29/25 07:00 Temperature Temperature Source Pulse Rate Pulse Rate [Apical] 102 H 103 H 103 H Pulse Rate from SpO2 Sensor Pulse Rhythm [Apical] Regular Regular Pulse Strength [Apical] Normal Normal Respiratory Rate 18 20 24 Respiratory Effort / Characteristics Non-Labored Spontaneous Non-Labored Spontaneous Non-Labored Spontaneous Respiratory Depth Normal Normal Normal Respiratory Pattern Regular Blood Pressure Blood Pressure [Left Arm] Blood Pressure [Right Arm] 96/54 L 96/64 L 82/61 L Blood Pressure Mean Blood Pressure Mean [Left Arm] Blood Pressure Mean [Right Arm] 68 74 68 Blood Pressure Position Pulse Oximetry 100 94 64 L Oxygen Delivery Method Room Air Room Air Room Air Sepsis Recent Fever Within 48 Hours Sepsis New/Unexplained Change in Mental Status Sepsis Action Taken by Nursing 01/29/25 07:05 01/29/25 07:15 01/29/25 07:27 Temperature Temperature Source Pulse Rate 103 H Pulse Rate [Apical] 97 H Pulse Rate from SpO2 Sensor 103 H Pulse Rhythm [Apical] Pulse Strength [Apical] Respiratory Rate 23 21 Respiratory Effort / Characteristics Respiratory Depth Respiratory Pattern Blood Pressure Blood Pressure [Left Arm] Blood Pressure [Right Arm] 93/52 L 95/59 L Blood Pressure Mean Blood Pressure Mean [Left Arm] Blood Pressure Mean [Right Arm] 65 71 Blood Pressure Position Pulse Oximetry 94 96 Oxygen Delivery Method Room Air Room Air Sepsis Recent Fever Within 48 Hours Sepsis New/Unexplained Change in Mental Status Sepsis Action Taken by Nursing 01/29/25 07:31 01/29/25 08:00 01/29/25 08:30 Temperature Temperature Source Pulse Rate Pulse Rate [Apical] 98 H 91 H Pulse Rate from SpO2 Sensor Pulse Rhythm [Apical] Pulse Strength [Apical] Respiratory Rate 24 22 Respiratory Effort / Characteristics Respiratory Depth Respiratory Pattern Blood Pressure 90/47 L Blood Pressure [Left Arm] 96/56 L 93/57 L Blood Pressure [Right Arm] Blood Pressure Mean 65 Blood Pressure Mean [Left Arm] 69 69 Blood Pressure Mean [Right Arm] Blood Pressure Position Pulse Oximetry 94 94 Oxygen Delivery Method Room Air Room Air Sepsis Recent Fever Within 48 Hours Sepsis New/Unexplained Change in Mental Status Sepsis Action Taken by Alf Medications Current Medication List: was personally reviewed by me Laboratory Data Attestation: I reviewed the patient's lab results. 01/29/25 05:40 01/29/25 05:40 Lab Results 01/29/25 Range/Units 05:40 WBC 13.28 H (4.8-10.8) K/ul RBC 5.02 (4.70-6.10) M/uL Hgb 14.9 (14.0-18.0) g/dl Hct 43.1 (42.0-52.0) % MCV 85.9 (80.0-100.0) fL MCH 29.7 (25.0-34.0) pg MCHC 34.6 (32.0-36.0) g/dL RDW Std Deviation 40.4 (36.4-46.3) fL RDW Coeff of Luz 12.9 (11.5-14.5) % Plt Count 258 (130-400) K/uL MPV 11.1 (9.4-12.4) fL Immature Gran % (Auto) 0.3 % Neut % (Auto) 88.1 % Lymph % (Auto) 4.4 % [place] % (Auto) 6.5 % Eos % (Auto) 0.4 % Baso % (Auto) 0.3 % Neut # (Auto) 11.70 H (1.40-6.50) K/uL Lymph # (Auto) 0.59 L (1.20-3.40) K/uL [place] # (Auto) 0.86 H (0.11-0.59) K/uL Eos # (Auto) 0.05 (0.00-0.50) K/uL Baso # (Auto) 0.04 (0.00-0.20) K/uL Immature Gran # (Auto) 0.04 (0.01-0.20) K/uL Sodium 138 (136-145) mmol/L Potassium 3.8 (3.5-5.1) mmol/L Chloride 104 (98-107) mmol/L Carbon Dioxide 26 (21-32) mmol/L Anion Gap 8 (3-11) BUN 9 (6-23) mg/dl Creatinine 1.00 (0.6-1.4) mg/dl Est Cr Clr Drug Dosing 168.5 ml/min eGFR 107.78 BUN/Creatinine Ratio 9.0 L (10-20) Glucose 100 H (70-99(Fasting)) mg/dl Lactate 1.7 (0.4-2.0) mmol/L Calcium 9.3 (8.6-10.3) mg/dl Magnesium 1.6 L (1.7-2.4) mg/dl Total Bilirubin 0.9 (0.2-1.0) mg/dl Direct Bilirubin 0.2 (0-0.2) mg/dl AST 43 H (13-39) U/L ALT 44 (7-52) U/L Alkaline Phosphatase 77 (34-104) U/L Troponin I High Sens 3.6 (0-20) pg/ml Total Protein 7.6 (6.0-8.3) gm/dl Albumin 4.2 (3.4-5.0) gm/dl Procalcitonin 0.03 (0-0.5) ng/ml Administered Medications Enoxaparin Sodium (Enoxaparin 80 Mg/0.8 Ml Syr) 80 mg SQ Q24H [facility] Stop: 02/28/25 11:29 Last Admin: 01/29/25 11:55 Dose: 80 mg Documented By: JOESPH Daptomycin 700 mg/ Syringe 14 mls @ 7 mls/min IV Q24H [facility]; Protocol Stop: 01/31/25 11:29 Last Admin: 01/29/25 11:55 Dose: 7 mls/min Documented By: JOESPH Sodium Chloride (Nss) 1,000 mls @ 100 mls/hr IV .Q10H [facility] Stop: 01/29/25 16:13 Last Admin: 01/29/25 11:57 Dose: 100 mls/hr Documented By: JOESPH Piperacillin Sod/Tazobactam Sod (Zosyn) 4.5 gm in 100 mls @ 25 mls/hr IV Q8H [facility]; Protocol Stop: 02/05/25 11:29 Last Admin: 01/29/25 11:55 Dose: 25 mls/hr Documented By: JOESPH Discontinued Medications Sodium Chloride (Nss) 1,000 mls @ 999 mls/hr IV .Q1H1M [facility] Stop: 01/29/25 07:30 Last Infusion: 01/29/25 07:41 Dose: Infused Documented By: Admin: 01/29/25 06:44 Dose: 999 mls/hr Documented By: Infusion: 01/29/25 06:43 Dose: Infused Documented By: [facility] Admin: 01/29/25 05:42 Dose: 999 mls/hr Documented By: [facility] Sodium Chloride (Nss) 1,000 mls @ 999 mls/hr IV .Q1H1M ONE Stop: 01/29/25 07:00 Last Admin: 01/29/25 06:44 Dose: Not Given Documented By: [facility] Sodium Chloride (Nss) 250 mls @ 999 mls/hr IV .Q16M ONE Stop: 01/29/25 06:15 Last Infusion: 01/29/25 06:53 Dose: Infused Documented By: [facility] Admin: 01/29/25 06:32 Dose: 999 mls/hr Documented By: XENA Piperacillin Sod/Tazobactam Sod (Zosyn) 4.5 gm in 100 mls @ 200 mls/hr IV NOW ONE Stop: 01/29/25 06:29 Last Infusion: 01/29/25 06:52 Dose: Infused Documented By: [facility] Admin: 01/29/25 06:19 Dose: 200 mls/hr Documented By: XENA Acetaminophen (Ofirmev) 1,000 mg in 100 mls @ 400 mls/hr IV NOW STA Stop: 01/29/25 06:21 Last Infusion: 01/29/25 06:44 Dose: Infused Documented By: [facility] Admin: 01/29/25 06:18 Dose: 400 mls/hr Documented By: XENA Magnesium Sulfate/Dextrose (Magnesium Sulfate / D5w) 1 gm in 100 mls @ 100 mls/hr IV NOW STA Stop: 01/29/25 07:15 Last Infusion: 01/29/25 07:43 Dose: Infused Documented By: Admin: 01/29/25 06:41 Dose: 100 mls/hr Documented By: XENA Sodium Chloride (Nss) 1,000 mls @ 999 mls/hr IV .Q1H1M ONE Stop: 01/29/25 08:42 Last Infusion: 01/29/25 08:51 Dose: Infused Documented By: Admin: 01/29/25 07:43 Dose: 999 mls/hr Documented By: ALLIE Ketorolac Tromethamine (Ketorolac Tromethamine 15 Mg/Ml Vial) 15 mg IV NOW STA Stop: 01/29/25 06:08 Last Admin: 01/29/25 06:18 Dose: 15 mg Documented By: XENA Ondansetron HCl (Ondansetron Inj 2 Mg/Ml 2 Ml Vial) 4 mg IV NOW STA Stop: 01/29/25 06:08 Last Admin: 01/29/25 06:18 Dose: 4 mg Documented By: LENNOX Imaging Data Radiologist's Impression: Chest X-Ray 01/29/25 05:28 EXAM: XR chest 1V portable CLINICAL HISTORY: Sepsis. TECHNIQUE: An X-ray image of the chest is obtained in AP projection. COMPARISON: 08/06/2024 X-ray. FINDINGS: Pulmonary Parenchyma: Unchanged prominent both inge with congested vascularity noted. New haziness and infiltrates of the right lower lung zone may indicate an inflammatory process. No pulmonary nodules are identified. No evidence of pleural effusion or pleural thickening. Heart and Mediastinum: Heart size and shape are normal. No mediastinal widening or masses. No hilar or mediastinal lymphadenopathy. Bony Thorax: Bony thorax appears intact without fractures or deformities. Soft Tissues: Soft tissues overlying the chest wall are unremarkable. IMPRESSION: 1. Unchanged prominent hilum with congested vascularity noted. 2. New interval haziness and infiltrates of the right lower lung zone may indicate an inflammatory process. 3. Further clinical correlation and follow-up are advised Electronically signed by Alberto Malhotra 01-29-2025 07:00 AM Vascular Ultrasound 01/29/25 06:39 EXAM: US extremity non-vascular ltd CLINICAL HISTORY: Infection. left lower leg TECHNIQUE: Ultrasound examination of the soft tissues of the lower extremity was performed. COMPARISON: None. FINDINGS: There is significant edema in the left medial calf surrounding the scar tissue. A small area at the middle of the scar demonstrates a circular echogenic ring with an anechoic center, measuring 4 x 2 x 3 mm. This region is surrounded by localized fluid. The superficial veins are patent. IMPRESSION: There is significant edema in the left medial calf surrounding the scar tissue, with a small area measuring 4 x 2 x 3 mm that demonstrates an echogenic ring and an anechoic center, possibly representing a foreign body versus old surgical change. A small fluid collection is also present. Few interfascial streaks of fluid are seen. These findings are consistent with post-infective cellulitis. Follow-up ultrasound is advised. Electronically signed by Alberto Malhotra 01-29-2025 08:24 AM Discharge Plan Visit Data Chief Complaint: Leg Injury/Pain Stated Complaint: INFECTION? LT LEG PAIN ED Provider: Ray Cordova Discharge Problem: Sepsis, Cellulitis, Hypotension, Leukocytosis, Hypomagnesemia Patient Disposition: Admitted As Inpatient Condition: Serious Discharge Instructions Interventions: ED Discharge Assessment Last Done: 01/29/25 11:14 Discharge Problem: Sepsis Qualifiers: Sepsis type: sepsis due to unspecified organism Sepsis acute organ dysfunction status: without acute organ dysfunction Qualified Code(s): A41.9 - Sepsis, unspecified organism Cellulitis Qualifiers: Site of cellulitis: extremity Site of cellulitis of extremity: lower extremity Laterality: left Qualified Code(s): L03.116 - Cellulitis of left lower limb Hypotension Qualifiers: Hypotension type: unspecified hypotension type Qualified Code(s): I95.9 - Hypotension, unspecified Leukocytosis Qualifiers: Leukocytosis type: unspecified Qualified Code(s): D72.829 - Elevated white blood cell count, unspecified
[2025-01-29 06:14] LABS: Alanine Aminotransferase 44.0 U/L (7-52); Alkaline Phosphatase 77.0 U/L (34-104); Anion Gap 8.0 (3-11); Bilirubin,Total 0.9 mg/dl (0.2-1.0); Blood Urea Nitrogen 9.0 mg/dl (6-23); Calcium 9.3 mg/dl (8.6-10.3); Carbon Dioxide 26.0 mmol/L (21-32); Chloride 104.0 mmol/L (98-107); Creatinine Clr Calc Pharmacy 168.5 ml/min; Glucose 100.0 mg/dl (70-99(Fasting)); Magnesium 1.6 mg/dl (1.7-2.4); Potassium 3.8 mmol/L (3.5-5.1); Sodium 138.0 mmol/L (136-145); Total Protein 7.6 gm/dl (6.0-8.3)
[2025-01-29] MEDS: ACETAMINOPHEN 1,000 MG/100 ML VIAL IV STA (06:18)
[2025-01-29] MEDS: ONDANSETRON INJ 2 MG/ML 2 ML VIAL IV STA (06:18)
[2025-01-29] MEDS: KETOROLAC TROMETHAMINE 15 MG/ML VIAL IV STA (06:18)
[2025-01-29] MEDS: PIPERACILLIN/TAZOBACTAM 4.5 GM/100 ML BAG IV ONE (06:19)
[2025-01-29] MEDS: SODIUM CHLORIDE 0.9% 250 ML IV ONE (06:32)
[2025-01-29] MEDS: MAGNESIUM SULFATE / D5W 1 GM/100 ML BAG IV STA (06:41)
[2025-01-29] MEDS: SODIUM CHLORIDE 0.9% 1,000 ML IV ONE ×2 (06:44→07:43)
--- NOTE | 2025-01-29 07:00 | XRay Report ---
EXAM: XR chest 1V portable CLINICAL HISTORY: Sepsis. TECHNIQUE: An X-ray image of the chest is obtained in AP projection. COMPARISON: 08/06/2024 X-ray. FINDINGS: Pulmonary Parenchyma: Unchanged prominent both inge with congested vascularity noted. New haziness and infiltrates of the right lower lung zone may indicate an inflammatory process. No pulmonary nodules are identified. No evidence of pleural effusion or pleural thickening. Heart and Mediastinum: Heart size and shape are normal. No mediastinal widening or masses. No hilar or mediastinal lymphadenopathy. Bony Thorax: Bony thorax appears intact without fractures or deformities. Soft Tissues: Soft tissues overlying the chest wall are unremarkable. IMPRESSION: 1. Unchanged prominent hilum with congested vascularity noted. 2. New interval haziness and infiltrates of the right lower lung zone may indicate an inflammatory process. 3. Further clinical correlation and follow-up are advised Electronically signed by Alberto Malhotra 01-29-2025 07:00 AM
--- NOTE | 2025-01-29 08:25 | Ultrasound Report ---
EXAM: US extremity non-vascular ltd CLINICAL HISTORY: Infection. left lower leg TECHNIQUE: Ultrasound examination of the soft tissues of the lower extremity was performed. COMPARISON: None. FINDINGS: There is significant edema in the left medial calf surrounding the scar tissue. A small area at the middle of the scar demonstrates a circular echogenic ring with an anechoic center, measuring 4 x 2 x 3 mm. This region is surrounded by localized fluid. The superficial veins are patent. IMPRESSION: There is significant edema in the left medial calf surrounding the scar tissue, with a small area measuring 4 x 2 x 3 mm that demonstrates an echogenic ring and an anechoic center, possibly representing a foreign body versus old surgical change. A small fluid collection is also present. Few interfascial streaks of fluid are seen. These findings are consistent with post-infective cellulitis. Follow-up ultrasound is advised. Electronically signed by Alberto Malhotra 01-29-2025 08:24 AM
--- NOTE | 2025-01-29 08:42 | History & Physical Report ---
Date of Service January 29, 2025 Assessment & Plan (1) Cellulitis of left leg: (2) Morbid obesity with BMI of 50.0-59.9, adult: Plan This 74-year-old male with recurrent left lower extremity cellulitis. In the past only grew coag negative staph. This is his third occurrence of the same leg at the same site. Patient does have morbid obesity as a risk factor but nothing else. Patient initiated on broad-spectrum antibiotics of daptomycin and Zosyn therapy blood culture obtained. Will likely reengage with infectious disease. #Lower extremity cellulitis. concern for sepsis on presentation Patient is on daptomycin and Zosyn. DVT prevention will be higher dose given his morbid obesity with a BMI of 50. Patient been volume resuscitated for sepsis and he will be continued on IV fluid for another 500 cc. previous workups including immunoglobulin levels in July 2024 which were normal A1c which is previously checked and was normal. PT has not had HIV checked in the past dvt prevention is lovenox 0.5mg/kg History of Present Illness Primary Care Provider: JOSUE Hardwick 24-year-old male with a rapid onset of systemic symptoms associate with left lower leg cellulitis. Patient developed lower leg pain fatigue nausea and vomiting. His erythema over the left lower extremity. Patient previously been admitted in July of this year for cellulitis and early sepsis in the past in the same leg at the same site. During that admission the only thing he grew was coag negative, methicillin's sensitive Staph aureus there was some conjecture whether this was a contaminant versus real pathogen. He was subsequently discharged on cephalexin for total 7-day course per infectious disease recommendations. Concern for sepsis with tachycardia hypotension and fever and leukocytosis Allergies Allergy/AdvReac Type Severity Reaction Status Date / Time No Known Allergies Allergy Verified 01/29/25 09:30 Home Medications Medication Instructions Recorded Confirmed Type No Known Home Medications 01/29/25 01/29/25 History Past Med/Surg History Problem List (Updated 01/29/25 @ 13:45 by Ray Cordova MD) Hypomagnesemia (Acute) Leukocytosis (Acute) Hypotension (Acute) Cellulitis (Acute) Sepsis (Acute) Class 3 obesity Morbid obesity with BMI of 50.0-59.9, adult Cellulitis of left leg (Acute) History of incision and drainage 05/2022 ([facility]aryn) Left leg abscess Paronychia due to ingrown nail Ingrown toenail of both feet Abnormal thyroid function test (Acute) [id number] spots (Acute) Medical History Dehydration Sepsis Elevated CK Abscess of left leg Elevated LFTs Acute pharyngitis, unspecified Family History Mother No problems noted. Father No problems noted. Social History Smoking Status: Never smoker Second Hand Exposure: No; Do You Dip or Chew Tobacco: No; Hx Alcohol Use: Yes Alcohol type: hard liquor Hx Substance Use: No Preferred Language: Montenegrin Communication Ability: Effective Pivot End Polisher Required: No Beliefs That Will Affect Care: None Current Living Situation: Parent current occupational status: employed Feels Safe at Home: Yes Childhood Exposure to Second-Hand Smoke: No Diet: regular caffeine: Yes Dental Care, Regularly: No Physical Activity Frequency: 3-4 Times per Week Seatbelt Use: always Sunscreen Use: No Assistive Devices: None Physical Exam Physical Exam: The patient appeared well nourished and normally developed. Vital signs as documented. Head exam is normocephalic atraumatic Neck is without JVD, thyromegaly, or carotid bruits. Lungs are clear to auscultation, no focal loss of breath sounds Cardiac exam, Rhythm is regular.. No murmurs, rubs or gallops. Abdominal exam reveals normal bowel sounds, soft non tender, no masses Extremities are nonedematous and both pedal pulses are present Neurologic exam is alert and oriented, no focal loss of strength or sensation Skin is with changes of cellulitis, circumferential redness LLE warm no fluctuance Psychologically is without concerns for anxiety or depression.. Results & Data Results & Data Vital Signs (Past 12 Hours) Vital Signs Temp Pulse Pulse Resp BP BP BP 01/29/25 08:00 98 H 24 96/56 L 01/29/25 07:31 90/47 L 01/29/25 07:27 103 H 21 01/29/25 07:15 97 H 23 95/59 L 01/29/25 07:05 93/52 L 01/29/25 07:00 103 H 24 82/61 L 01/29/25 06:45 103 H 20 96/64 L 01/29/25 06:32 102 H 18 96/54 L 01/29/25 06:24 107 H 23 01/29/25 06:15 90/69 L 01/29/25 06:12 107 H 22 01/29/25 06:03 104 H 21 01/29/25 06:02 121/57 L 01/29/25 06:02 121/57 L 01/29/25 05:54 01/29/25 05:48 108 H 29 H 01/29/25 05:45 110 H 23 99/54 L 01/29/25 05:36 111 H 39 H 01/29/25 05:30 113 H 01/29/25 05:17 99.9 F H 119 H 22 86/53 L Pulse Ox O2 Del Method 01/29/25 08:00 94 Room Air 01/29/25 07:31 01/29/25 07:27 96 Room Air 01/29/25 07:15 94 Room Air 01/29/25 07:05 01/29/25 07:00 64 L Room Air 01/29/25 06:45 94 Room Air 01/29/25 06:32 100 Room Air 01/29/25 06:24 91 01/29/25 06:15 01/29/25 06:12 92 01/29/25 06:03 92 01/29/25 06:02 01/29/25 06:02 01/29/25 05:54 99 Room Air 01/29/25 05:48 01/29/25 05:45 96 01/29/25 05:36 98 01/29/25 05:30 01/29/25 05:17 95 Room Air Laboratory Results review labs including cbc , chemistry and old records or previous similar hosp ital stays Code Status & VTE Plan VTE Prophylaxis Plan VTE Prophylaxis will be ordered: Yes PG Care Time/CCT Total # of Minutes Spent Total Time Spent with Patient: Total time spent is greater than 50% in coordination of care (as documented) at patient's floor/unit and/or counseling patient: Coding Level of Care Code 87235 INT INP/OBS CARE 3/75MIN Diagnoses Cellulitis of left leg L03.116 Morbid obesity with BMI of 50.0-59.9, adult E66.01; Z68.43
[2025-01-29] MEDS ORDERED: ONDANSETRON INJ 2 MG/ML 2 ML VIAL IV PRN (11:14)
[2025-01-29] MEDS ORDERED: MoRPHine SULFATE 4 MG/ML 1 ML CARP\\VIAL IV PRN (11:14)
[2025-01-29] MEDS ORDERED: MoRPHine SULFATE 2 MG/ML CARP IV PRN (11:14)
[2025-01-29] MEDS: DAPTOmycin 700 MG in SYRINGE 0 ML IV SCH (11:55)
[2025-01-29] MEDS: PIPERACILLIN/TAZOBACTAM 4.5 GM/100 ML BAG IV SCH (11:55)
[2025-01-29] MEDS: ENOXAPARIN 80 MG/0.8 ML SYR SQ SCH (11:55)
[2025-01-29] MEDS: ACETAMINOPHEN 500 MG TAB PO PRN (16:16)
[2025-01-29] MEDS: KETOROLAC TROMETHAMINE 15 MG/ML VIAL IV ONE (17:29)
[2025-01-29] MEDS: SODIUM CHLORIDE 0.9% 500 ML IV SCH (19:03)
[2025-01-30 06:20] LABS: Hematocrit (blood only) 38.8 % (42.0-52.0); Hemoglobin 13.1 g/dl (14.0-18.0); Mean Corpuscular Hemoglobin 29.4 pg (25.0-34.0); Mean Corpuscular Volume 87.0 fL (80.0-100.0); Platelet Count 218 K/uL (130-400); RDW Standard Deviation 41.8 fL (36.4-46.3); Red Blood Count 4.46 M/uL (4.70-6.10); White Blood Count 10.30 K/ul (4.8-10.8)
[2025-01-30 06:41] LABS: Anion Gap 7.0 (3-11); Blood Urea Nitrogen 10.0 mg/dl (6-23); Calcium 8.4 mg/dl (8.6-10.3); Carbon Dioxide 23.0 mmol/L (21-32); Chloride 107.0 mmol/L (98-107); Creatinine Clr Calc Pharmacy 185.5 ml/min; Glucose 90.0 mg/dl (70-99(Fasting)); Potassium 3.4 mmol/L (3.5-5.1); Sodium 137.0 mmol/L (136-145)
[2025-01-30 07:26] LABS: Appearance Urine Clear (Clear); Bacteria Urine Automated None Seen (None Seen); Cast Urine Automated 0-2 /lpf (0-2); Epithelial Cell Urine Auto 0-2 /hpf (0-2); Glucose Urine UA Negative (Negative); RBC Urine Automated 0-2 /hpf (0-2); WBC Urine Automated 0-5 /hpf (0-5)
--- NOTE | 2025-01-30 07:46 | Hospitalist Progress Note ---
Date of Service January 30, 2025 Assessment & Plan (1) Cellulitis of left leg: (2) Morbid obesity with BMI of 50.0-59.9, adult: Plan This 74-year-old male with recurrent left lower extremity cellulitis. In the past only grew coag negative staph. This is his third occurrence of the same leg at the same site. Patient does have morbid obesity as a risk factor but nothing else. Patient initiated on broad-spectrum antibiotics of daptomycin and Zosyn therapy blood culture obtained. Will likely reengage with infectious disease. #Lower extremity cellulitis. concern for sepsis on presentation Patient is on daptomycin and Zosyn. DVT prevention will be higher dose given his morbid obesity with a BMI of 50. Patient been volume resuscitated for sepsis. HIV pending, but pt denies high risk behavior . previous workups including immunoglobulin levels in July 2024 which were normal A1c which is previously checked and was normal. dvt prevention is lovenox 0.5mg/kg Admission and Anticipated Discharge Date Admission Date: January 29, 2025 Subjective pt with overall feeling of improvement but does have persistent pain and erythema Physical Exam Physical Exam: The patient appeared well nourished and normally developed. Vital signs as documented. Head exam is normocephalic atraumatic Neck is without JVD, thyromegaly, or carotid bruits. Lungs are clear to auscultation, no focal loss of breath sounds Cardiac exam, Rhythm is regular.. No murmurs, rubs or gallops. Abdominal exam reveals normal bowel sounds, soft non tender, no masses Extremities are nonedematous and both pedal pulses are present Neurologic exam is alert and oriented, no focal loss of strength or sensation Skin is with changes of cellulitis, circumferential redness LLE warm no fluctuance/ scar present Psychologically is without concerns for anxiety or depression.. Results & Data Results & Data Vital Signs (Past 12 Hours) Vital Signs Temp Pulse Pulse Resp BP Pulse Ox O2 Del Method 01/30/25 07:29 98.1 F 97 H 18 97/61 L 94 Room Air 01/30/25 07:03 98.4 F 93 H 18 96/57 L 93 Room Air 01/29/25 23:02 98.4 F 88 20 98/61 L 98 Room Air Laboratory Results review cbc, review chemistry augment potassium po PG Care Time/CCT Total # of Minutes Spent Total Time Spent with Patient: Total time spent is greater than 50% in coordination of care (as documented) at patient's floor/unit and/or counseling patient: Coding Level of Care Code 19651 SUB INP/OBS CARE 2MIN Diagnoses Cellulitis of left leg L03.116 Morbid obesity with BMI of 50.0-59.9, adult E66.01; Z68.43
--- NOTE | 2025-01-30 17:07 | Infectious Disease Consult ---
Date of Consultation January 30, 2025 Assessment & Plan (1) Leukocytosis: (2) Sepsis: (3) Cellulitis of left leg: Plan This is a 24-year-old man with a past medical history of obesity, recurrent left lower extremity cellulitis who was last admitted 08/07/2024 - 08/09/2024 with rec urrent left lower extremity cellulitis. At that time he presented with chills and left lower extremity erythema and swelling. tib-fib X-ray showed no acute osseous findings. Lower extremity Doppler was negative for DVT. He was initially started on vancomycin and cefepime but then switched to cefazolin and then discharged on cephalexin. Prior to that he was admitted in May 2022 with left lower extremity cellulitis and underwent I&D. Cultures grew rare coag negative staph. He was transitioned to TMP/SMX. He was admitted again with LLE cellulitis in 11/2023. At that time CT showed cellulitis without abscess. He was treated with ceftriaxone and then transition to cephalexin on discharge with resolution. He now presents with increased left lower extremity pain in the last 24 hours with subjective fevers, fatigue, nausea and vomiting. No documentation of trauma. On admission, he is febrile ( Tmax of 38.1) and tachycardic ( HR :[id number]). Labs: WBC 13.28--> 10.3, ESR 15, BUN 9, creatinine 1.0, HIV 1/2 ag.ab negative. Chest x-ray showed new interval haziness and infiltrate in the right lower lung zone. Unchanged prominent hilum with congested vascularity. Lower extremity soft tissue ultrasound showed significant edema in the left medial calf surrounding the scar tissue with a small area measuring 4 x 2 x 3 mm that demonstrates an echogenic ring in an hypoechoic center possibly representing a foreign body versus old surgical change. There is a small fluid collection present. Few interfascial streaks of fluids. Findings consistent with post infective cellulitis. He has been started on daptomycin and Zosyn. Infectious disease consulted for recurrent cellulitis An E consult without video evaluation completed as video/camera is not working today Microbiology 01/29 blood culture NGTD Antibiotics Daptomycin 01/29current Zosyn 01/28current # Sepsis Fever, leukocytosis, tachycardia # Recurrent LLE cellulitis with ? small collection on imaging # Morbid obesity Discussion: Presents with recurrent left lower extremity cellulitis. Risk factors for recurrence unclear. HIV negative. No known history of chronic wounds. He denies chronic lymphedema. Obesity could be a risk factor. He does not have any known history of MRSA or MDRO in the past. On prior admission a wound culture grew coag negative staph. This was thought to be a skin contaminant. Soft tissue ultrasound shows a possible small fluid collection and siignificant edema in the left medial calf surrounding scar tissue. There is no documentation of any purulent drainage. Recommendations -Continue Zosyn 4.5 g IV every 8 hours for now -Continue daptomycin 700 mg IV daily for now -Monitor for clinical improvement especially in the setting of small collection on imaging. Will need to review photos/picture of lower extremity. -If continued improvement, then would stepdown to doxycycline 100 mg p.o. 12h and cephalexin 500 4 times daily to complete a total of 7 days of therapy. -Elevate left lower extremity to help with erythema and edema. Thank you for this consult. ID will continue to follow. Isabella Manuel MD, MPH Infectious Disease [facility] Call [phone] with questions Consultation Information This patient recommendation is based on a telemedicine consult request which was completed asynchronously through chart review and information provided by the primary physician. The patient was not seen or examined today. The evaluation is consultative in nature and all patient care and treatment decisions can either be accepted or rejected by the patient's primary hospital-based treating physician using their own independent medical judgment for their patient. Light Oil Operator contact information: Please call [facility] Call Center . (Phone Number For Physician Use Only) Time Spent Reviewing Chart: 31+ minutes History of Present Illness Reason for Consultation: Recurrent LLE cellulitis Requesting Physician: Jong Moraes MD Attending Physician: Jong Moraes MD History of Present Illness This is a 24-year-old man with a past medical history of obesity, recurrent left lower extremity cellulitis who was last admitted 08/07/2024 - 08/09/2024 with recurrent left lower extremity cellulitis. At that time he presented with chills and left lower extremity erythema and swelling. tib-fib X-ray showed no acute osseous findings. Lower extremity Doppler was negative for DVT. He was initially started on vancomycin and cefepime but then switched to cefazolin and then discharged on cephalexin. Prior to that he was admitted in May 2022 with left lower extremity cellulitis and underwent I&D. Cultures grew rare coag negative staph. He was transitioned to TMP/SMX. He was admitted again with LLE cellulitis in 11/2023. At that time CT showed cellulitis without abscess. He was treated with ceftriaxone and then transition to cephalexin on discharge with resolution. He now presents with increased left lower extremity pain in the last 24 hours with subjective fevers, fatigue, nausea and vomiting. No documentation of trauma. On admission, he is febrile ( Tmax of 38.1) and tachycardic ( HR :[id number]). Labs: WBC 13.28--> 10.3, ESR 15, BUN 9, creatinine 1.0, HIV 1/2 ag.ab negative. Chest x-ray showed new interval haziness and infiltrate in the right lower lung zone. Unchanged prominent hilum with congested vascularity. Lower extremity soft tissue ultrasound showed significant edema in the left medial calf surrounding the scar tissue with a small area measuring 4 x 2 x 3 mm that demonstrates an echogenic ring in an hypoechoic center possibly representing a foreign body versus old surgical change. There is a small fluid collection present. Few interfascial streaks of fluids. Findings consistent with post infective cellulitis. He has been started on daptomycin and Zosyn. Infectious disease consulted for recurrent cellulitis An E consult without video evaluation completed as video/camera is not working today Allergies Allergy/AdvReac Type Severity Reaction Status Date / Time No Known Allergies Allergy Verified 01/29/25 09:30 Home Medications Medication Instructions Recorded Confirmed Type No Known Home Medications 01/29/25 01/29/25 History Patient History Medical History Dehydration Sepsis Elevated CK Abscess of left leg Elevated LFTs Acute pharyngitis, unspecified Family History Mother No problems noted. Father No problems noted. Social History Smoking Status: Never smoker Second Hand Exposure: No; Do You Dip or Chew Tobacco: No; Hx Alcohol Use: Yes Alcohol type: other Hx Substance Use: No Preferred Language: Yoruba Communication Ability: Effective Planning Aide Required: No Beliefs That Will Affect Care: None Current Living Situation: Family current occupational status: employed Other Information That Helps Us Care for You: No Feels Safe at Home: Yes Safety Concerns: Feels Safe At This Time Childhood Exposure to Second-Hand Smoke: No Diet: regular caffeine: Yes Dental Care, Regularly: No Physical Activity Frequency: 3-4 Times per Week Seatbelt Use: always Sunscreen Use: No Assistive Devices: None Results & Data Vital Signs (Past 12 Hours) Vital Signs Temp Pulse Pulse Resp BP BP Pulse Ox 01/30/25 15:14 37.0 C 87 16 118/80 97 01/30/25 07:29 36.7 C 97 H 18 97/61 L 94 01/30/25 07:03 36.9 C 93 H 18 96/57 L 93 O2 Del Method 01/30/25 15:14 Room Air 01/30/25 07:29 Room Air 01/30/25 07:03 Room Air Laboratory Results 01/29/25 05:50 Aerobic Blood Culture - Preliminary Blood No growth in Aerobic bottle after 24 hours. Anaerobic Blood Culture - Preliminary No growth in Anaerobic bottle after 24 hours. 01/29/25 05:40 Aerobic Blood Culture - Preliminary Blood No growth in Aerobic bottle after 24 hours. Anaerobic Blood Culture - Preliminary No growth in Anaerobic bottle after 24 hours. 01/30/25 01/30/25 01/29/25 Unknown 05:37 05:40 WBC 10.30 RBC 4.46 L Hgb 13.1 L Hct 38.8 L MCV 87.0 MCH 29.4 MCHC 33.8 RDW Std Deviation 41.8 RDW Coeff of Luz 13.2 Plt Count 218 MPV 11.2 ESR 15 Sodium 137 Potassium 3.4 L Chloride 107 Carbon Dioxide 23 Anion Gap 7 BUN 10 Creatinine 0.92 Est Cr Clr Drug Dosing 185.5 eGFR 119.13 BUN/Creatinine Ratio 10.9 Glucose 90 Calcium 8.4 L Urine Color Dark Yellow Urine Appearance Clear Urine pH 5.5 Ur Specific [place] 1.034 H Urine Protein Trace H Urine Glucose (UA) Negative Urine Ketones 1+ H Urine Blood Negative Urine Nitrite Negative Urine Bilirubin Negative Urine Urobilinogen Negative Ur Leukocyte Esterase Negative Urine WBC (Auto) 0-5 Urine RBC (Auto) 0-2 U Hyaline Cast (Auto) 0-2 U Epithel Cells (Auto) 0-2 Urine Bacteria (Auto) None Seen Urine Comment HIV 1&2 Ab/P24 Ag 4thGn Negative Diagnostic Findings Chest X-Ray 01/29/25 05:28 EXAM: XR chest 1V portable CLINICAL HISTORY: Sepsis. TECHNIQUE: An X-ray image of the chest is obtained in AP projection. COMPARISON: 08/06/2024 X-ray. FINDINGS: Pulmonary Parenchyma: Unchanged prominent both inge with congested vascularity noted. New haziness and infiltrates of the right lower lung zone may indicate an inflammatory process. No pulmonary nodules are identified. No evidence of pleural effusion or pleural thickening. Heart and Mediastinum: Heart size and shape are normal. No mediastinal widening or masses. No hilar or mediastinal lymphadenopathy. Bony Thorax: Bony thorax appears intact without fractures or deformities. Soft Tissues: Soft tissues overlying the chest wall are unremarkable. IMPRESSION: 1. Unchanged prominent hilum with congested vascularity noted. 2. New interval haziness and infiltrates of the right lower lung zone may indicate an inflammatory process. 3. Further clinical correlation and follow-up are advised Electronically signed by Alberto Malhotra 01-29-2025 07:00 AM Vascular Ultrasound 01/29/25 06:39 EXAM: US extremity non-vascular ltd CLINICAL HISTORY: Infection. left lower leg TECHNIQUE: Ultrasound examination of the soft tissues of the lower extremity was performed. COMPARISON: None. FINDINGS: There is significant edema in the left medial calf surrounding the scar tissue. A small area at the middle of the scar demonstrates a circular echogenic ring with an anechoic center, measuring 4 x 2 x 3 mm. This region is surrounded by localized fluid. The superficial veins are patent. IMPRESSION: There is significant edema in the left medial calf surrounding the scar tissue, with a small area measuring 4 x 2 x 3 mm that demonstrates an echogenic ring and an anechoic center, possibly representing a foreign body versus old surgical change. A small fluid collection is also present. Few interfascial streaks of fluid are seen. These findings are consistent with post-infective cellulitis. Follow-up ultrasound is advised. Electronically signed by Alberto Malhotra 01-29-2025 08:24 AM Medications Administered Home Medications Medication Instructions Recorded Confirmed Last Taken No Known Home Medications 01/29/25 01/29/25 Unknown Active Medications Generic Name Dose Route Start Last Admin Trade Name Freq PRN Reason Stop Dose Admin Acetaminophen 1,000 mg 01/29/25 11:14 01/29/25 16:16 Acetaminophen 500 Mg Tab PO 02/28/25 11:13 1,000 mg QID PRN Administration pain/fever Enoxaparin Sodium 80 mg 01/29/25 11:30 01/30/25 11:05 Enoxaparin 80 Mg/0.8 Ml Syr SQ 02/28/25 11:29 80 mg Q24H ALEYDA Administration Daptomycin 700 mg/ Syringe 14 mls @ 7 mls/min 01/29/25 11:30 01/30/25 11:05 IV 01/31/25 11:29 7 mls/min Q24H ALEYDA Administration Protocol Piperacillin Sod/Tazobactam Sod 4.5 gm in 100 mls @ 25 mls/hr 01/29/25 11:30 01/30/25 15:16 Zosyn IV 02/05/25 11:29 Infused Q8H ALEYDA Infusion Protocol (1) Leukocytosis Leukocytosis type: unspecified Qualified Code(s): D72.829 - Elevated white blood cell count, unspecified (2) Sepsis Sepsis acute organ dysfunction status: without acute organ dysfunction Sepsis type: sepsis due to unspecified organism Qualified Code(s): A41.9 - Sepsis, unspecified organism
[2025-01-31 06:55] LABS: Hematocrit (blood only) 38.7 % (42.0-52.0); Hemoglobin 13.7 g/dl (14.0-18.0); Mean Corpuscular Hemoglobin 30.7 pg (25.0-34.0); Mean Corpuscular Volume 86.8 fL (80.0-100.0); Platelet Count 226 K/uL (130-400); RDW Standard Deviation 41.0 fL (36.4-46.3); Red Blood Count 4.46 M/uL (4.70-6.10); White Blood Count 6.51 K/ul (4.8-10.8)
[2025-01-31 07:33] LABS: Anion Gap 7.0 (3-11); Blood Urea Nitrogen 10.0 mg/dl (6-23); Calcium 8.7 mg/dl (8.6-10.3); Carbon Dioxide 25.0 mmol/L (21-32); Chloride 106.0 mmol/L (98-107); Creatinine Clr Calc Pharmacy 189.6 ml/min; Glucose 92.0 mg/dl (70-99(Fasting)); Potassium 3.6 mmol/L (3.5-5.1); Sodium 138.0 mmol/L (136-145)
--- NOTE | 2025-01-31 11:51 | Hospitalist Progress Note ---
Date of Service January 31, 2025 Assessment & Plan (1) Cellulitis of left leg: (2) Morbid obesity with BMI of 50.0-59.9, adult: Plan This is a 24-year-old male with a history of morbid obesity, recurrent left lower extremity cellulitis, who presents to the hospital on account of worsening left lower extremity redness and swelling. 1. Recurrent left lower extremity cellulitis: Patient has been admitted multiple times in the past for left lower extremity cellulitis. On admission, he was tachycardic, febrile and WBC was elevated Left lower ultrasound did not show any evidence of drainable abscess Infectious disease has been consulted HIV is negative Continue IV Zosyn and daptomycin Risk factors for recurrence include scar tissue, obesity This morning, according to the patient, the area of redness is improving #2 sepsis: Secondary to cellulitis Continue management as above 3. Morbid obesity: Patient was advised on diet and exercise dvt prevention is lovenox 0.5mg/kg Disposition: Hopefully discharge in next 48 hours Admission and Anticipated Discharge Date Admission Date: January 29, 2025 Subjective Patient seen and examined, says the area of redness and swelling is improving Review of Systems Review of Systems: All systems reviewed are negative, apart from the ones contained in the history. Physical Exam Physical Exam: The patient is awake, alert and oriented 3, well developed and well nourished, normocephalic and atraumatic, lying in bed and in no acute distress. HEENT--PERRL, EOMI, mucous membranes and oropharynx mildly dry Neck--supple. No JVD. No bruits. Thyroid normal, trachea midline, no adenopathy. Heart--normal S1 and S2. No murmurs, rubs or gallops. Lungs--clear bilaterally, no respiratory distress, no accessory muscle use. Abdomen--normal bowel sounds and soft. Extremities--Left lower extremity redness and edema Dermatologic--normal skin turgor, normal color, no abnormal lymph nodes, no rash. Neurologic--cranial nerves II through XII grossly intact. Rheumatologic--normal range of motion. Psychiatric--normal affect. Results & Data Results & Data Vital Signs (Past 12 Hours) Vital Signs Temp Pulse Resp BP Pulse Ox O2 Del Method 01/31/25 07:29 97.9 F 62 16 117/75 96 Room Air PG Care Time/CCT Total # of Minutes Spent Total Time Spent with Patient: Total time spent is greater than 50% in coordination of care (as documented) at patient's floor/unit and/or counseling patient: Coding Level of Care Code 67072 SUB INP/OBS CARE 2/35MIN Diagnoses Cellulitis of left leg L03.116 Morbid obesity with BMI of 50.0-59.9, adult E66.01; Z68.43 Time Spent (min) 35
[2025-01-31] MEDS: DAPTOmycin 700 MG in SYRINGE 0 ML IV SCH (13:01)
--- NOTE | 2025-01-31 16:16 | Infectious Disease Progress Nt ---
Date of Service January 31, 2025 Assessment & Plan (1) Leukocytosis: (2) Sepsis: (3) Cellulitis of left leg: Plan This is a 24-year-old man with a past medical history of obesity, recurrent left lower extremity cellulitis who was last admitted 08/07/2024 - 08/09/2024 with re current left lower extremity cellulitis. At that time he presented with chills and left lower extremity erythema and swelling. tib-fib X-ray showed no acute osseous findings. Lower extremity Doppler was negative for DVT. He was initially started on vancomycin and cefepime but then switched to cefazolin and then discharged on cephalexin. Prior to that he was admitted in May 2022 with left lower extremity cellulitis and underwent I&D. Cultures grew rare coag negative staph. He was transitioned to TMP/SMX. He was admitted again with LLE cellulitis in 11/2023. At that time CT showed cellulitis without abscess. He was treated with ceftriaxone and then transition to cephalexin on discharge with resolution. He now presents with increased left lower extremity pain in the last 24 hours with subjective fevers, fatigue, nausea and vomiting. No documentation of trauma. On admission, he is febrile ( Tmax of 38.1) and tachycardic ( HR :[id number]). Labs: WBC 13.28--> 10.3, ESR 15, BUN 9, creatinine 1.0, HIV 1/2 ag.ab negative. Chest x-ray showed new interval haziness and infiltrate in the right lower lung zone. Unchanged prominent hilum with congested vascularity. Lower extremity soft tissue ultrasound showed significant edema in the left medial calf surrounding the scar tissue with a small area measuring 4 x 2 x 3 mm that demonstrates an echogenic ring in an hypoechoic center possibly representing a foreign body versus old surgical change. There is a small fluid collection present. Few interfascial streaks of fluids. Findings consistent with post infective cellulitis. He has been started on daptomycin and Zosyn. Infectious disease consulted for recurrent cellulitis An E consult without video evaluation completed as video/camera is not working today Microbiology 01/29 blood culture NGTD Antibiotics Daptomycin 01/29current Zosyn 01/28current # Sepsis- resolved Fever, leukocytosis, tachycardia # Recurrent LLE cellulitis with ? small collection on imaging # Morbid obesity Discussion: Presents with recurrent left lower extremity cellulitis. Risk factors for recurrence unclear. HIV negative. No known history of chronic wounds. He denies chronic lymphedema. Obesity could be a risk factor. He does not have any known history of MRSA or MDRO in the past. On prior admission a wound culture grew coag negative staph. This was thought to be a skin contaminant. Soft tissue ultrasound shows a possible small fluid collection and significant edema in the left medial calf surrounding scar tissue. There is no documentation of any purulent drainage. Per d/w team 01/31, there is decreased swelling. Recommendations I will transition to Cefazolin 2 g IV q 8 hrs -Discontinued Zosyn and daptomycin -Monitor for continued clinical improvement especially in the setting of ? small collection -If continued improvement, then would stepdown to cephalexin 500 4 times daily to complete a total of 7 days of therapy ( 01/29-02/05). -Elevate left lower extremity to help with erythema and edema. ID will sign off. Isabella Manuel MD, MPH Infectious Disease [facility], ID Division Call [phone] with questions Admission and Anticipated Discharge Date Admission Date: January 29, 2025 Subjective This patient recommendation is based on a telemedicine consult request which was completed asynchronously through chart review and information provided by the primary physician. The patient was not seen or examined today. The evaluation is consultative in nature and all patient care and treatment decisions can either be accepted or rejected by the patient's primary hospital-based treating phys ician using their own independent medical judgment for their patient. Time Spent Reviewing Chart: 21 - 30 minutes Afebrile. WBC 6.51 Has less LE swelling Results & Data Vital Signs (Past 12 Hours) Vital Signs Temp Pulse Resp BP Pulse Ox O2 Del Method 01/31/25 15:30 36.8 C 65 18 101/68 96 Room Air 01/31/25 07:29 36.6 C 62 16 117/75 96 Room Air Laboratory Results Laboratory Results - last 48 hr 01/29/25 01/30/25 01/30/25 05:40 05:37 Unknown WBC 10.30 RBC 4.46 L Hgb 13.1 L Hct 38.8 L MCV 87.0 MCH 29.4 MCHC 33.8 RDW Std Deviation 41.8 RDW Coeff of Luz 13.2 Plt Count 218 MPV 11.2 ESR 15 Sodium 137 Potassium 3.4 L Chloride 107 Carbon Dioxide 23 Anion Gap 7 BUN 10 Creatinine 0.92 Est Cr Clr Drug Dosing 185.5 eGFR 119.13 BUN/Creatinine Ratio 10.9 Glucose 90 Calcium 8.4 L Urine Color Dark Yellow Urine Appearance Clear Urine pH 5.5 Ur Specific [place] 1.034 H Urine Protein Trace H Urine Glucose (UA) Negative Urine Ketones 1+ H Urine Blood Negative Urine Nitrite Negative Urine Bilirubin Negative Urine Urobilinogen Negative Ur Leukocyte Esterase Negative Urine WBC (Auto) 0-5 Urine RBC (Auto) 0-2 U Hyaline Cast (Auto) 0-2 U Epithel Cells (Auto) 0-2 Urine Bacteria (Auto) None Seen Urine Comment HIV 1&2 Ab/P24 Ag 4thGn Negative 01/31/25 06:00 WBC 6.51 RBC 4.46 L Hgb 13.7 L Hct 38.7 L MCV 86.8 MCH 30.7 MCHC 35.4 RDW Std Deviation 41.0 RDW Coeff of Luz 12.9 Plt Count 226 MPV 11.3 ESR Sodium 138 Potassium 3.6 Chloride 106 Carbon Dioxide 25 Anion Gap 7 BUN 10 Creatinine 0.90 Est Cr Clr Drug Dosing 189.6 eGFR 122.31 BUN/Creatinine Ratio 11.1 Glucose 92 Calcium 8.7 Urine Color Urine Appearance Urine pH Ur Specific [place] Urine Protein Urine Glucose (UA) Urine Ketones Urine Blood Urine Nitrite Urine Bilirubin Urine Urobilinogen Ur Leukocyte Esterase Urine WBC (Auto) Urine RBC (Auto) U Hyaline Cast (Auto) U Epithel Cells (Auto) Urine Bacteria (Auto) Urine Comment HIV 1&2 Ab/P24 Ag 4thGn Microbiology 01/29/25 05:40 Blood Aerobic Blood Culture - Preliminary No growth in Aerobic bottle after 48 hours. 01/29/25 05:40 Blood Anaerobic Blood Culture - Preliminary No growth in Anaerobic bottle after 48 hours. 01/29/25 05:50 Blood Aerobic Blood Culture - Preliminary No growth in Aerobic bottle after 48 hours. 01/29/25 05:50 Blood Anaerobic Blood Culture - Preliminary No growth in Anaerobic bottle after 48 hours. Diagnostic Findings Chest X-Ray 01/29/25 05:28 EXAM: XR chest 1V portable CLINICAL HISTORY: Sepsis. TECHNIQUE: An X-ray image of the chest is obtained in AP projection. COMPARISON: 08/06/2024 X-ray. FINDINGS: Pulmonary Parenchyma: Unchanged prominent both inge with congested vascularity noted. New haziness and infiltrates of the right lower lung zone may indicate an inflammatory process. No pulmonary nodules are identified. No evidence of pleural effusion or pleural thickening. Heart and Mediastinum: Heart size and shape are normal. No mediastinal widening or masses. No hilar or mediastinal lymphadenopathy. Bony Thorax: Bony thorax appears intact without fractures or deformities. Soft Tissues: Soft tissues overlying the chest wall are unremarkable. IMPRESSION: 1. Unchanged prominent hilum with congested vascularity noted. 2. New interval haziness and infiltrates of the right lower lung zone may indicate an inflammatory process. 3. Further clinical correlation and follow-up are advised Electronically signed by Alberto Malhotra 01-29-2025 07:00 AM Vascular Ultrasound 01/29/25 06:39 EXAM: US extremity non-vascular ltd CLINICAL HISTORY: Infection. left lower leg TECHNIQUE: Ultrasound examination of the soft tissues of the lower extremity was performed. COMPARISON: None. FINDINGS: There is significant edema in the left medial calf surrounding the scar tissue. A small area at the middle of the scar demonstrates a circular echogenic ring with an anechoic center, measuring 4 x 2 x 3 mm. This region is surrounded by localized fluid. The superficial veins are patent. IMPRESSION: There is significant edema in the left medial calf surrounding the scar tissue, with a small area measuring 4 x 2 x 3 mm that demonstrates an echogenic ring and an anechoic center, possibly representing a foreign body versus old surgical change. A small fluid collection is also present. Few interfascial streaks of fluid are seen. These findings are consistent with post-infective cellulitis. Follow-up ultrasound is advised. Electronically signed by Alberto Malhotra 01-29-2025 08:24 AM Medications Administered Home Medications Medication Instructions Recorded Confirmed Last Taken No Known Home Medications 01/29/25 01/29/25 Unknown Active Medications Generic Name Dose Route Start Last Admin Trade Name Freq PRN Reason Stop Dose Admin Acetaminophen 1,000 mg 01/29/25 11:14 01/29/25 16:16 Acetaminophen 500 Mg Tab PO 02/28/25 11:13 1,000 mg QID PRN Administration pain/fever Enoxaparin Sodium 80 mg 01/29/25 11:30 01/31/25 13:01 Enoxaparin 80 Mg/0.8 Ml Syr SQ 02/28/25 11:29 80 mg Q24H ALEYDA Administration Piperacillin Sod/Tazobactam Sod 4.5 gm in 100 mls @ 25 mls/hr 01/29/25 11:30 01/31/25 13:00 Zosyn IV 02/05/25 11:29 25 mls/hr Q8H ALEYDA Administration Protocol Daptomycin 700 mg/ Syringe 14 mls @ 7 mls/min 01/31/25 12:00 01/31/25 13:01 IV 02/07/25 11:59 7 mls/min Q24H ALEYDA Administration Protocol (1) Leukocytosis Leukocytosis type: unspecified Qualified Code(s): D72.829 - Elevated white blood cell count, unspecified (2) Sepsis Sepsis acute organ dysfunction status: without acute organ dysfunction Sepsis type: sepsis due to unspecified organism Qualified Code(s): A41.9 - Sepsis, unspecified organism
[2025-02-01 06:04] LABS: Hematocrit (blood only) 39.2 % (42.0-52.0); Hemoglobin 13.3 g/dl (14.0-18.0); Mean Corpuscular Hemoglobin 29.6 pg (25.0-34.0); Mean Corpuscular Volume 87.1 fL (80.0-100.0); Platelet Count 237 K/uL (130-400); RDW Standard Deviation 40.9 fL (36.4-46.3); Red Blood Count 4.50 M/uL (4.70-6.10); White Blood Count 5.05 K/ul (4.8-10.8)
[2025-02-01 06:09] LABS: Anion Gap 5.0 (3-11); Blood Urea Nitrogen 9.0 mg/dl (6-23); Calcium 8.8 mg/dl (8.6-10.3); Carbon Dioxide 27.0 mmol/L (21-32); Chloride 107.0 mmol/L (98-107); Creatinine Clr Calc Pharmacy 208.1 ml/min; Glucose 82.0 mg/dl (70-99(Fasting)); Potassium 3.8 mmol/L (3.5-5.1); Sodium 139.0 mmol/L (136-145)
--- NOTE | 2025-02-01 07:49 | Electrocardiogram Report ---
Test Reason : Blood Pressure : */* mmHG Vent. Rate : 113 BPM Atrial Rate : 113 BPM P-R Int : 142 ms QRS Dur : 80 ms QT Int : 300 ms P-R-T Axes : -23 -16 -17 degrees QTcB Int : 411 ms Sinus tachycardia Inferior infarct , age undetermined Abnormal ECG When compared with ECG of 06-Aug-2024 20:57, Inferior infarct is now Present Inverted T waves have replaced nonspecific T wave abnormality in Inferior leads Confirmed by Ck Tijerina ([id number]) on 02/01/2025 7:49:42 AM Referred By: Confirmed By: Ck Tijerina
[2025-02-01 07:58] VITALS: BP 120/85; PULSE 63; RESP 16; TEMP 97.5; O2SAT 97
--- NOTE | 2025-02-01 09:48 | Discharge Summary ---
Date of Service February 01, 2025 Admission HPI Per Admitting Provider 24-year-old male with a rapid onset of systemic symptoms associate with left lower leg cellulitis. Patient developed lower leg pain fatigue nausea and vomiting. His erythema over the left lower extremity. Patient previously been admitted in July of this year for cellulitis and early sepsis in the past in the same leg at the same site. During that admission the only thing he grew was coag negative, methicillin's sensitive Staph aureus there was some conjecture whether this was a contaminant versus real pathogen. He was subsequently discharged on cephalexin for total 7-day course per infectious disease r ecommendations. Concern for sepsis with tachycardia hypotension and fever and leukocytosis Admission Exam (Per Admitting) Constitutional The patient is awake, alert and oriented 3, well developed and well nourished, normocephalic and atraumatic, lying in bed and in no acute distress. HEENT--PERRL, EOMI, mucous membranes and oropharynx mildly dry Neck--supple. No JVD. No bruits. Thyroid normal, trachea midline, no adenopathy. Heart--normal S1 and S2. No murmurs, rubs or gallops. Lungs--clear bilaterally, no respiratory distress, no accessory muscle use. Abdomen--normal bowel sounds and soft. Extremities--no cyanosis or clubbing. No edema. Dermatologic--normal skin turgor, normal color, no abnormal lymph nodes, no rash. Neurologic--cranial nerves II through XII grossly intact. Rheumatologic--normal range of motion. Psychiatric--normal affect. Discharge Data Consultations 01/30/25 12:22 Consult Infectious Diseases Routine Hospital Course (1) Cellulitis of left leg: (2) Morbid obesity with BMI of 50.0-59.9, adult: Plan This is a 24-year-old male with a history of morbid obesity, recurrent left lower extremity cellulitis, who presents to the hospital on account of worsening left lower extremity redness and swelling. 1. Recurrent left lower extremity cellulitis: Patient has been admitted multiple times in the past for left lower extremity cellulitis. On admission, he was tachycardic, febrile and WBC was elevated Left lower ultrasound did not show any evidence of drainable abscess Infectious disease has been consulted HIV is negative Discharge on PO Cephalexin 500mg Q6h till 9/24/25 Risk factors for recurrence include scar tissue, obesity This morning, according to the patient, the area of redness is improving #2 sepsis: Secondary to cellulitis Now resolved 3. Morbid obesity: Patient was advised on diet and exercise dvt prevention is lovenox 0.5mg/kg Disposition: d/c home Coding Level of Care Code 17387 INP/OBS DISCH >30 MIN Diagnoses Cellulitis of left leg L03.116 Morbid obesity with BMI of 50.0-59.9, adult E66.01; Z68.43 Time Spent (min) 35
== END 2025-02-01 11:30 | disposition home or self-care (01) | DRG 872 ==
LOC: ED 05:14 → EDINP 08:35 → SUATTDRO 08:35 → 3E 11:44